=== PATIENT | male | born 1950 | race Two or more races ===

== ENCOUNTER 2024-12-06 16:22 | Inpatient (IN) | payer OTHER, SELFPAY ==
[2024-12-06] VITALS (13 sets, daily range): BP systolic 198–241; BP diastolic 77–108; PULSE 64–98; RESP 16–27; TEMP 36.6–37.2; O2SAT 99–100
--- NOTE | ~2024-12-06 | XR_ITS ---
Left Knee Technique: AP, lateral, and sunrise views were obtained. Clinical History: Injury Findings: No fracture or dislocation is seen. Osseous alignment is anatomic. Joint spaces are preserv ed without degenerative or erosive change. Soft tissues are unremarkable. No joint effusion is seen. Impression: Unremarkable left knee radiographs. Reviewed, dictated and finalized at [facility]. CAPTAIN Impression: Unremarkable left knee radiographs.
--- NOTE | ~2024-12-06 | XR_ITS ---
Clinical Indication: Shortness of breath AP and lateral views of the chest: Comparison: None Findings: Focal hazy airspace disease at the lateral left midlung. Right lung clear. Possible COPD.. Cardiomediastinal silhouette is within normal limits. Bones and soft tissues are unremarkable. Impression: Focal hazy airspace opacity lateral left midlung, suspicious for pneumonia. COPD. Reviewed, dictated and finalized at location . AND INSURANCE CONSULTANT Impression: Focal hazy airspace opacity lateral left midlung, suspicious for pneumonia. COPD.
--- NOTE | ~2024-12-06 | MR_ITS ---
MRI of the brain Clinical History: Left-sided deficit Technique: Axial and sagittal T1-weighted images were acquired. These were followed by axial T2-weigh nancy, diffusion weighted, gradient, and FLAIR images. Following intravenous administration of 14 cc Mu ltiHance gadolinium, T1-weighted fat-sat imaging was performed in the axial and coronal planes. Findings: There is a 1 cm ovoid area restricted diffusion at the posterior aspect of the internal cap jose/peripheral right thalamus, compatible with focal acute infarct (diffusion image 16). There is mo derate background chronic microvascular ischemic change in the periventricular white matter bilateral ly. No intracranial hemorrhage. Ventricles and subarachnoid spaces are essentially unremarkable. Orbits are unremarkable. Paranasal s inuses and mastoid air cells are clear. Distal left vertebral artery flow-void not clearly present. R emaining major intracranial flow voids appear grossly intact. Sagittal midline structures are grossly intact, though there is significant motion artifact on sagitt al images. No abnormal postcontrast enhancement evident, the postcontrast images are degraded by motion artifact . IMPRESSION: 1 cm ovoid acute infarct at the posterior aspect of the right internal capsule/right thalamus, as det edson above. Moderate chronic microvascular ischemic changes. Distal left vertebral artery flow-void not seen. Proximal occlusion is a consideration. Reviewed, dictated and finalized at location M. OP INFRASTRUCTURE ARCHITECT IMPRESSION: 1 cm ovoid acute infarct at the posterior aspect of the right internal capsule/ right thalamus, as detailed above. Moderate chronic microvascular ischemic changes. Distal left vertebral artery flow-void not seen. Proximal occlusion is a consid eration.
--- NOTE | ~2024-12-06 | XR_ITS ---
Left Shoulder Technique: AP and scapular Y views were obtained. Clinical History: Injury Findings: No fracture or dislocation is seen. Osseous alignment is anatomic. The glenohumeral joint i s intact. There is mild AC joint degenerative change. Soft tissues are unremarkable. Impression: No acute abnormalities. Mild AC joint degenerative change. Reviewed, dictated and finalized at [facility]. LATORY COMPLIANCE MANAGER Impression: No acute abnormalities. Mild AC joint degenerative change.
--- NOTE | ~2024-12-06 | CT_ITS ---
CT head without contrast Indication: Altered mental status Technique: Serial scans were obtained through the brain without the administration of contrast. Dose reduction technique was used on this scan by utilizing automated exposure control and iterative recon struction technique. The dose-length product (DLP) was 1362.00 mGy-cm. Findings: There is no evidence of intracranial hemorrhage, mass lesion, or acute infarct. The ventri cles and subarachnoid spaces are dilated, consistent with mild atrophy. Low attenuation regions are seen within the periventricular white matter bilaterally, likely representing changes from chronic mi crovascular ischemic disease. There is no evidence of edema, mass effect or midline shift. The visu alized paranasal sinuses and mastoid air cells are clear. Impression: No intracranial hemorrhage, mass, or acute infarct. Atrophy and chronic white matter changes, as above. Reviewed, dictated and finalized at location . AINS AND DRAPERIES SALESPERSON Impression: No intracranial hemorrhage, mass, or acute infarct. Atrophy and chronic white matter changes, as above.
--- NOTE | ~2024-12-06 | CT_ITS ---
CT ANGIOGRAM NECK AND HEAD History: Neurologic deficit. Technique: Serial spiral axial images through the head and neck were obtained during arterial phase I V injection of 100 cc of Omnipaque 350. 3-D postprocessing and MIP images were then reconstructed on the remote workstation. Dose reduction technique was used on this scan by utilizing automated exposur e control and iterative reconstruction technique. The dose-length product (DLP) was 1000.99 mGy-cm. CTA neck findings: Right vertebral artery is patent throughout its course. There is occlusion at the distal right vertebral artery. Remainder of the proximal and mid portions the right vertebral artery are patent. Bilateral common carotid, internal carotid, and external carotid arteries are patent. Th ere is high-grade stenosis of the proximal left internal carotid artery, presumably related to large soft plaque, 90 % in degree The proximal right internal carotid artery demonstrates 0% stenosis relat gagan to the normal distal artery lumen diameter. The proximal left internal carotid artery demonstrate s 90% stenosis relative to the normal distal artery lumen diameter. CTA head findings: There is probable focal occlusion of the distal left vertebral artery. Distal righ t vertebral artery patent. Basilar artery and posterior cerebral arteries are patent. There is extens gagan atherosclerotic calcification of the cavernous portions of the distal internal carotid arteries, with areas of uviw-ly-[id number] stenosis. Distal internal carotid arteries are patent however. Middle cerebral arteries and anterior shoulder arteries are patent. Possible 3 mm aneurysm at the anterior c ommunicating artery region. No large vessel occlusion. Impression: Occlusion of the distal left vertebral artery without clear delineation of left PICA. High-grade stenosis of the proximal left internal carotid artery, 90 % in degree. Possible 3 mm aneurysm at the anterior to indicating artery region. Reviewed, dictated and finalized at location M. NING COORDINATOR Impression: Occlusion of the distal left vertebral artery without clear delineation of left PICA. High-grade stenosis of the proximal left internal carotid artery, 90 % in degre e. Possible 3 mm aneurysm at the anterior to indicating artery region.
--- OUTSIDE RECORDS SUMMARY | 2024-12-06 20:05 | XMS_ITS | Referral Summary ---
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 Name Role Phone Ted Randall MD Primary Care Provider [phone] Allergies No known active allergies Medications albuterol HFA (PROVENTIL HFA,VENTOLIN HFA,PROAIR HFA) 90 mcg/actuation inhaler INHALE 2 PUFFS BY MOUTH EVERY 6 HOURS NEEDED FOR 10 DAYS 01/07/2024 Active Symbicort 160-4.5 mcg/actuation inhaler INHALE 2 PUFFS BY MOUTH TWICE DAILY DIRECTED 01/08/2024 Active predniSONE (DELTASONE) 10 mg tablet TAKE 6 TABLETS BY MOUTH ONCE DAILY FOR 2 DAYS AND THEN 4 ONCE DAILY FOR 2 DAYS AND THEN 2 ONCE DAILY FOR 3 DAYS AND THEN 1 ONCE DAILY FOR 3 DAYS (TAKE WITH FOOD) 01/07/2024 Active triamcinolone (KENALOG) 0.1 % cream 01/14/2024 Active urea (CARMOL) 40 % creamIndication s:Hyperkeratosi s Apply twice a day to feet. 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
--- OUTSIDE RECORDS SUMMARY | 2024-12-06 20:05 | XMS_ITS | Clinical Summary ---
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 Gender Identity Not on file Sexual Orientation Not on file Obstetrics History Plan of Treatment Health Maintenance Due Date Last Done Comments Colon Cancer Screening-Colonoscopy 1952 Depression Screening 1952 Fall Risk Assessment 1952 Hepatitis C Screening 1952 Pneumococcal vaccine 65+ (1 of 2 - PCV) 1958 DTaP/Tdap/Td Vaccine (1 - Tdap) 1963 Hepatitis B Screening 1970 Zoster Vaccine (1 of 2) 2002 Abdominal Aortic Aneurysm (AAA) Screen 2017 Well Visit 65+ 2017 Influenza Vaccine (#1) 2024 09/07/2021 Insurance [facility] Care Teams Bellhop Service Captain Relationship Specialty Start Date End Date Ted Randall MD [address] [facility] [place] [address] PCP - General Family Medicine 01/09/24
--- NOTE | 2024-12-06 20:43 | ECG_ITS ---
Test Date: 2024-12-06 20:56:05 Measurements Intervals [place] Rate: 65 P: 72 ME: 167 QRS: 48 QRSD: 85 T: 211 QT: 402 QTc: 419 Interpretive Statements SINUS RHYTHM LEFT VENTRICULAR HYPERTROPHY AND ST-T CHANGE [VOLTAGE CRITERIA PLUS ST/T ABNORMALITY] consider ischemia No previous ECG available for comparison Electronically Signed On 12-06-2024 21:22:28 ORDER PROCESSOR by Eric Foley M.D.
--- NOTE | 2024-12-06 20:47 | ED_ITS ---
HPI - Neuro Symptoms/Deficit General Chief Complaint: Neuro Symptoms/Deficit <Blanche Vargas APRN - Last Filed: 12/07/24 03:15> Stated Complaint: left arm and foot not working since yesterday <Blanche Vargas APRN - Last Filed: 12/07/24 03:15> Time Seen by Provider: 12/06/24 19:43 <Blanche Vargas APRN - Last Filed: 12/07/24 03:15> History of Present Illness HPI Narrative: Patient is a 74-year-old [place]ian male who presents to the ER with complaints of left-sided weakness. His last known well was 2:00 p.m. yesterday (over 30 hours ago). Patient's family reports yesterday he fell for no known reason. Patient has family reports that he landed on his left knee and left shoulder. At the time of examination he endorses left arm weakness, and left lower extremity weakness that prevents him from being able to ambulate. Patient's family reports he has a history of high blood pressure but he takes his blood pressure medication every day. They deny any other medical history. Patient reports he did not hit his head or lose consciousness when he fell. He denies any chest pain, headache, abdominal pain, back pain, urinary symptoms, recent fevers, other signs/symptoms of illness. <Blanche Vargas APRN - Last Filed: 12/07/24 03:15> Related Data Home Medications: Home Medications ?Medication ?Instructions ?Recorded ?Confirmed ?Last Taken ?Type albuterol sulfate 90 mcg/actuation 2 puff inhalation Q6H PRN 12/07/24 12/07/24 12/06/24 History aerosol inhaler shortness of breath or wheezing budesonide-formoterol HFA 160 2 puff inhalation BID 12/07/24 12/07/24 12/06/24 History mcg-4.5 mcg/actuation aerosol inhaler (Symbicort) <Blanche Vargas APRN - Last Filed: 12/07/24 03:15> Allergies/Adverse Reactions: Allergies Allergy/AdvReac Type Severity Reaction Status Date / Time No Known Allergies Allergy Verified 12/06/24 17:03 <Blanche Vargas APRN - Last Filed: 12/07/24 03:15> Review of Systems 2 Review of Systems: All systems reviewed & are unremarkable except as noted in HPI and below <Blanche Vargas APRN - Last Filed: 12/07/24 03:15> PMFSH Family History Family History: Family History (Updated 12/07/24 @ 05:41 by Kady Nguyen RN) Sibling Heart valve problem Mother Coarse tremors Father Hypertension <Blanche Vargas APRN - Last Filed: 12/07/24 03:15> Social History Social History: Social History Smoking status: Current every day smoker Tobacco type: cigarettes Alcohol intake: never Substance use: never Do You Feel Safe in your Home?: Yes Lack of Transportation: No Lack of Food: Never True Current Housing: I Have Housing Concerned About Future Housing: No Difficulty Paying Gas/Electric Bills: No Difficulty Paying for Meds: No Currently Unemployed: No Education: Grade School Difficulty w/ Childcare or Family Care: No Spiritual care concerns: No <Blanche Vargas APRN - Last Filed: 12/07/24 03:15> Exam 2 Narrative: GENERAL: Well appearing, well-nourished, non-toxic, in no acute distress. HEAD: Normocephalic, atraumatic. + L facial drop with smile NECK: Supple. No adenopathy, no masses. RESPIRATORY: Airway patent, respirations nonlabored. Mildly coarse upper breath sounds. No cough during the time of examination. CARDIOVASCULAR: Regular rate and rhythm without murmurs, rubs, or gallops. Peripheral pulses 2+ and equal bilaterally. ABDOMINAL: Soft, nontender, nondistended, no hepatosplenomegaly. Normoactive BS. MUSCULOSKELETAL: Moves all extremities, although left arm and left leg are mildly weaker than right arm and right leg. Decreased strength in L rn production, ROM intact without gross deformities. SKIN: Warm, dry, normal color. No rashes. NEURO: A&O X3. Speech clear. No ataxic movements. PSYCHIATRIC: Appropriate mood and affect. Normal interaction. <Blanche Vargas APRN - Last Filed: 12/07/24 03:15> Course Course Emergency Course: Patient care was signed out to me by previous provider pending consultation with Neurosurgery and vascular surgery at [facility] regarding patient's head CT and neck/head CTA findings. I discussed the case with Neurosurgery Dr. Hodge at [facility]. No acute interventions are needed and recommendations are to follow neurology's recommendations and plan of care regarding to antiplatelet therapy and stroke workup. No need for transfer. Spoke to Dr. 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 They reviewed the images and clinical exam given that his symptoms are not consistent with his imaging these are likely incidental findings and not intervenable or needing any kind of emergent or urgent attention or transfer. Recommendations for outpatient follow-up with vascular surgery in our clinic for elective outpatient endarterectomy after inpatient stroke workup. I relayed these strategic sourcing consultant recommendations to our hospitalist currently being covered by the midlevel provider Dania. Patient was accepted as admission at this time to a [facility] bed for continued stroke workup here at our facility with neurology on consult. Patient outside window for interventions like TNK or thrombectomy. Patient is noted to be hypertensive but will pursue permissive hypertension given his acute clinical diagnosis of ischemic stroke. Family was made aware of the plan and patient successfully admitted this time. <Demetrius Mora MD - Last Filed: 12/07/24 08:50> Vital Signs Vital signs: Vital Signs Temperature 37.2 C 12/06/24 16:59 Pulse Rate 68 12/06/24 16:59 Respiratory Rate 16 12/06/24 16:59 Blood Pressure 207/77 H 12/06/24 16:59 Pulse Oximetry 100 12/06/24 16:59 Oxygen Delivery Room Air 12/06/24 16:59 Temperature 36.7 C 12/07/24 06:00 Pulse Rate 104 H 12/07/24 08:00 Respiratory Rate 14 12/07/24 06:00 Blood Pressure 185/73 H 12/07/24 06:00 Pulse Oximetry 100 12/07/24 06:00 Oxygen Delivery Room Air 12/07/24 07:59 <Blanche Vargas APRN - Last Filed: 12/07/24 03:15> Vital Signs Temperature 37.2 C 12/06/24 16:59 Pulse Rate 68 12/06/24 16:59 Respiratory Rate 16 12/06/24 16:59 Blood Pressure 207/77 H 12/06/24 16:59 Pulse Oximetry 100 12/06/24 16:59 Oxygen Delivery Room Air 12/06/24 16:59 Temperature 36.7 C 12/07/24 06:00 Pulse Rate 104 H 12/07/24 08:00 Respiratory Rate 14 12/07/24 06:00 Blood Pressure 185/73 H 12/07/24 06:00 Pulse Oximetry 100 12/07/24 06:00 Oxygen Delivery Room Air 12/07/24 07:59 <Demetrius Mora MD - Last Filed: 12/07/24 08:50> MDM - Neuro Symptoms/Deficit MDM Narrative Medical decision making narrative: Patient is a 74-year-old Fijian male who presents to the ER with complaints of left-sided weakness. His last known well was 2:00 p.m. yesterday (over 30 hours ago). Patient's family reports yesterday he fell for no known reason. Patient has family reports that he landed on his left knee and left shoulder. He continues to endorse pain at the time of examination. At the time of examination he endorses left arm weakness, and left lower extremity weakness that prevents him from being able to ambulate. Patient's family reports he has a history of high blood pressure, but he takes his blood pressure medication every day. They deny any other medical history, except that pt has smoked cigarettes for the past 59 years. Patient reports he did not hit his head or lose consciousness when he fell. He denies any chest pain, headache, abdominal pain, back pain, urinary symptoms, recent fevers, other signs/symptoms of illness. Labs Ordered: CBC, CMP, UA, TSH, COVID/flu/RSV, troponin, INR, PTT, D-dimer Imaging Ordered: CT head, CTA brain and carotids, left shoulder x-ray, left knee x-ray Medications Ordered: Hydralazine 20 mg IV x1 Results: Patient's head CT indicated no acute intracranial hemorrhage. No midline shift or mass effect. Cardenas-white matter differentiation maintained throughout. Age related cerebral volume loss. Periventricular and subcortical white matter hypoattenuation, consistent with chronic microangiopathy. Patient's CBC indicated a hemoglobin of 10.2, hematocrit of 35.5%, platelet count of 383. His CMP indicated a sodium of 135 and glucose of 107, but all other results were within normal limits. Patient's urinalysis results were unremarkable. His respiratory swab was negative her RSV/flu/COVID. NIH Stroke Scale/Score (NIHSS) from [email or web address] on 12/07/2024 All calculations should be rechecked by clinician prior to use RESULT SUMMARY: 3 points NIH Stroke Scale INPUTS: 1A: Level of consciousness ?> 0 = Alert; keenly responsive 1B: Ask month and age ?> 0 = Both questions right 1C: 'Blink eyes' & 'squeeze hands' ?> 0 = Performs both tasks 2: Horizontal extraocular movements ?> 0 = Normal 3: Visual rushing ?> 0 = No visual loss 4: Facial palsy ?> 1 = Minor paralysis (flat nasolabial fold, smile asymmetry) 5A: Left arm motor drift ?> 0 = No drift for 10 seconds 5B: Right arm motor drift ?> 0 = No drift for 10 seconds 6A: Left leg motor drift ?> 1 = Drift, but doesn't hit bed 6B: Right leg motor drift ?> 0 = No drift for 5 seconds 7: Limb Ataxia ?> 1 = Ataxia in 1 Limb 8: Sensation ?> 0 = Normal; no sensory loss 9: Language/aphasia ?> 0 = Normal; no aphasia 10: Dysarthria ?> 0 = Normal 11: Extinction/inattention ?> 0 = No abnormality Diagnosis: Ischemic stroke CTA head/neck ordered for further work-up. Consults: 0230- vascular surgery through [facility] Patient Education/Shared MDM: Patient's initial complaint in triage was ?fall, but upon getting back to a room in the ER the nurse reported pt actually had neurological deficits. Results of CT scan shared with family. They are very concerned regarding patient's diagnosis, but throughout the evening patient has repeatedly reported he wants to leave the hospital AMA. 0230-Care signed out to Dr. Mora. <Blanche Vargas, RIGO - Last Filed: 12/07/24 03:15> Patient is a 74-year-old Fijian male who presents to the ER with complaints of left-sided weakness. His last known well was 2:00 p.m. yesterday (over 30 hours ago). Patient's family reports yesterday he fell for no known reason. Patient has family reports that he landed on his left knee and left shoulder. He continues to endorse pain at the time of examination. At the time of examination he endorses left arm weakness, and left lower extremity weakness that prevents him from being able to ambulate. Patient's family reports he has a history of high blood pressure, but he takes his blood pressure medication every day. They deny any other medical history, except that pt has smoked cigarettes for the past 59 years. Patient reports he did not hit his head or lose consciousness when he fell. He denies any chest pain, headache, abdominal pain, back pain, urinary symptoms, recent fevers, other signs/symptoms of illness. Labs Ordered: CBC, CMP, UA, TSH, COVID/flu/RSV, troponin, INR, PTT, D-dimer Imaging Ordered: CT head, CTA brain and carotids, left shoulder x-ray, left knee x-ray Medications Ordered: Hydralazine 20 mg IV x1 Results: Patient's head CT indicated no acute intracranial hemorrhage. No midline shift or mass effect. Cardenas-white matter differentiation maintained throughout. Age related cerebral volume loss. Periventricular and subcortical white matter hypoattenuation, consistent with chronic microangiopathy. Patient's CBC indicated a hemoglobin of 10.2, hematocrit of 35.5%, platelet count of 383. His CMP indicated a sodium of 135 and glucose of 107, but all other results were within normal limits. Patient's urinalysis results were unremarkable. His respiratory swab was negative her RSV/flu/COVID. NIH Stroke Scale/Score (NIHSS) from [email or web address] on 12/07/2024 All calculations should be rechecked by clinician prior to use RESULT SUMMARY: 3 points NIH Stroke Scale INPUTS: 1A: Level of consciousness ?> 0 = Alert; keenly responsive 1B: Ask month and age ?> 0 = Both questions right 1C: 'Blink eyes' & 'squeeze hands' ?> 0 = Performs both tasks 2: Horizontal extraocular movements ?> 0 = Normal 3: Visual rushing ?> 0 = No visual loss 4: Facial palsy ?> 1 = Minor paralysis (flat nasolabial fold, smile asymmetry) 5A: Left arm motor drift ?> 0 = No drift for 10 seconds 5B: Right arm motor drift ?> 0 = No drift for 10 seconds 6A: Left leg motor drift ?> 1 = Drift, but doesn't hit bed 6B: Right leg motor drift ?> 0 = No drift for 5 seconds 7: Limb Ataxia ?> 1 = Ataxia in 1 Limb 8: Sensation ?> 0 = Normal; no sensory loss 9: Language/aphasia ?> 0 = Normal; no aphasia 10: Dysarthria ?> 0 = Normal 11: Extinction/inattention ?> 0 = No abnormality Diagnosis: Ischemic stroke CTA head/neck ordered for further work-up. Consults: 0230- vascular surgery and neurosurgery through [facility] Patient Education/Shared MDM: Patient's initial complaint in triage was ?fall, but upon getting back to a room in the ER the nurse reported pt actually had neurological deficits. Results of CT scan shared with family. They are very concerned regarding patient's diagnosis, but throughout the evening patient has repeatedly reported he wants to leave the hospital AMA. 0230-Care signed out to Dr. Mora. <Demetrius Mora MD - Last Filed: 12/07/24 08:50> Differential Diagnosis Differential diagnosis: Likely subarachnoid hemorrhage, cerebrovascular accident and transient cerebral ischemia <Blanche Vargas APRN - Last Filed: 12/07/24 03:15> Lab Data Attestation: I reviewed the patient's lab results. <Blnache Vargas APRN - Last Filed: 12/07/24 03:15> Result diagrams: 12/06/24 21:02 12/06/24 21:01 <Blanche Vargas APRN - Last Filed: 12/07/24 03:15> Labs: Lab Results 12/06/24 12/06/24 12/06/24 Range/Units 20:51 21:01 21:02 WBC 5.8 (4.5-10.0) K/mm3 RBC 6.12 (4.6-6.20) M/mm3 Hgb 10.2 L (14.0-18.0) g/dL Hct 35.5 L (42.0-52.0) % MCV 58.0 L (80-100) fl MCH 16.7 L (26-34) pg MCHC 28.7 L (32-36) g/dl RDW 18.6 H (11.5-14.5) % Plt Count 383 H (150-375) k/mm3 MPV 9.0 (7.4-10.4) fl Immature Gran % (Auto) 0.5 (0-0.5) % Neut % (Auto) 60.9 (45.5-73.1) % Lymph % (Auto) 20.9 (18.3-44.2) % Grayson % (Auto) 12.0 H (2.6-8.5) % Eos % (Auto) 5.2 H (0-4.4) % Baso % (Auto) 0.5 (0.2-1.2) % Lymph # (Auto) 1.20 (0.9-3.2) K/mm3 Grayson # (Auto) 0.7 H (0.1-0.6) K/mm3 Eos # (Auto) 0.3 (0-0.3) K/mm3 Baso # (Auto) 0.0 (0.0-0.1) K/mm3 Abs Immat Gran (auto) 0.03 (0.00-0.031) K/mm3 Absolute Neuts (auto) 3.5 (1.3-6.7) K/mm3 Absolute Nucleated RBC 0.000 (0.0-0.012) K/mm3 Nucleated RBC % 0.0 (0.0-0.2) % Platelet Estimate Slightly increased (Adequate) Anisocytosis 1+ Microcytosis 2+ (NORMAL) Ovalocytes 1+ Schistocytes None seen PT 13.6 (11.1-14.7) Seconds INR 1.0 APTT 30.9 (22.3-36.8) Seconds D-Dimer < 0.27 (<0.48) ug/mL Sodium 135 L (137-145) mmol/L Potassium 4.4 (3.4-5.0) mmol/L Chloride 102 (98-107) mmol/L Carbon Dioxide 24 (22-30) mmol/L Anion Gap 9 (4-12) mmol/L BUN 16 (9-20) mg/dL Creatinine 1.01 (0.7-1.3) mg/dL Estim Creat Clear Calc 51 ml/min Estimated GFR > 60 (59 - ) Glucose 93 (65-110) mg/dL POC Capillary Glucose 107 H (65-105) mg/dl Calcium 9.1 (8.4-10.2) mg/dL Total Bilirubin 0.5 (0.2-1.3) mg/dL AST 27 (17-59) U/L ALT 13 (6-50) U/L Alkaline Phosphatase 85 (38-126) U/L Troponin I 0.014 (0.000-0.034) ng/mL Total Protein 7.0 (6.3-8.2) g/dL Albumin 4.1 (3.5-5.1) g/dL TSH 3.420 (0.465-4.680) uIU/mL Urine Color (Yellow) Urine Appearance (Clear) Urine pH (5.0-9.0) Ur Specific [place] (1.001-1.035) Urine Protein (Negative) mg/dL Urine Glucose (UA) (Negative) mg/dL Urine Ketones (Negative) mg/dL Ur Blood (Man) (Negative) Urine Nitrate (Negative) Urine Bilirubin (Negative) Urine Urobilinogen (<2.0) mg/dL Leukocyte Esterase Rfl (Negative) MARIXA/UL Influenza A (RT-PCR) Negative (Negative) Influenza B (RT-PCR) Negative (Negative) RSV (RT-PCR) Negative (Negative) SARS-CoV-2 RNA (RT-PCR) Negative (Negative) 12/06/24 Range/Units 21:47 WBC (4.5-10.0) K/mm3 RBC (4.6-6.20) M/mm3 Hgb (14.0-18.0) g/dL Hct (42.0-52.0) % MCV (80-100) fl MCH (26-34) pg MCHC (32-36) g/dl RDW (11.5-14.5) % Plt Count (150-375) k/mm3 MPV (7.4-10.4) fl Immature Gran % (Auto) (0-0.5) % Neut % (Auto) (45.5-73.1) % Lymph % (Auto) (18.3-44.2) % Grayson % (Auto) (2.6-8.5) % Eos % (Auto) (0-4.4) % Baso % (Auto) (0.2-1.2) % Lymph # (Auto) (0.9-3.2) K/mm3 Grayson # (Auto) (0.1-0.6) K/mm3 Eos # (Auto) (0-0.3) K/mm3 Baso # (Auto) (0.0-0.1) K/mm3 Abs Immat Gran (auto) (0.00-0.031) K/mm3 Absolute Neuts (auto) (1.3-6.7) K/mm3 Absolute Nucleated RBC (0.0-0.012) K/mm3 Nucleated RBC % (0.0-0.2) % Platelet Estimate (Adequate) Anisocytosis Microcytosis (NORMAL) Ovalocytes Schistocytes PT (11.1-14.7) Seconds INR APTT (22.3-36.8) Seconds D-Dimer (<0.48) ug/mL Sodium (137-145) mmol/L Potassium (3.4-5.0) mmol/L Chloride (98-107) mmol/L Carbon Dioxide (22-30) mmol/L Anion Gap (4-12) mmol/L BUN (9-20) mg/dL Creatinine (0.7-1.3) mg/dL Estim Creat Clear Calc ml/min Estimated GFR (59 - ) Glucose (65-110) mg/dL POC Capillary Glucose (65-105) mg/dl Calcium (8.4-10.2) mg/dL Total Bilirubin (0.2-1.3) mg/dL AST (17-59) U/L ALT (6-50) U/L Alkaline Phosphatase (38-126) U/L Troponin I (0.000-0.034) ng/mL Total Protein (6.3-8.2) g/dL Albumin (3.5-5.1) g/dL TSH (0.465-4.680) uIU/mL Urine Color Yellow (Yellow) Urine Appearance Clear (Clear) Urine pH 6.0 (5.0-9.0) Ur Specific [place] 1.010 (1.001-1.035) Urine Protein Negative (Negative) mg/dL Urine Glucose (UA) Negative (Negative) mg/dL Urine Ketones Negative (Negative) mg/dL Ur Blood (Man) Negative (Negative) Urine Nitrate Negative (Negative) Urine Bilirubin Negative (Negative) Urine Urobilinogen 0.2 (<2.0) mg/dL Leukocyte Esterase Rfl Negative (Negative) MARIXA/UL Influenza A (RT-PCR) (Negative) Influenza B (RT-PCR) (Negative) RSV (RT-PCR) (Negative) SARS-CoV-2 RNA (RT-PCR) (Negative) <Blanche Mata Alicia, DOBBY LOOM WEAVER - Last Filed: 12/07/24 03:15> Lab Results 12/06/24 12/06/24 12/06/24 Range/Units 20:51 21:01 21:02 WBC 5.8 (4.5-10.0) K/mm3 RBC 6.12 (4.6-6.20) M/mm3 Hgb 10.2 L (14.0-18.0) g/dL Hct 35.5 L (42.0-52.0) % MCV 58.0 L (80-100) fl MCH 16.7 L (26-34) pg MCHC 28.7 L (32-36) g/dl RDW 18.6 H (11.5-14.5) % Plt Count 383 H (150-375) k/mm3 MPV 9.0 (7.4-10.4) fl Immature Gran % (Auto) 0.5 (0-0.5) % Neut % (Auto) 60.9 (45.5-73.1) % Lymph % (Auto) 20.9 (18.3-44.2) % Grayson % (Auto) 12.0 H (2.6-8.5) % Eos % (Auto) 5.2 H (0-4.4) % Baso % (Auto) 0.5 (0.2-1.2) % Lymph # (Auto) 1.20 (0.9-3.2) K/mm3 Grayson # (Auto) 0.7 H (0.1-0.6) K/mm3 Eos # (Auto) 0.3 (0-0.3) K/mm3 Baso # (Auto) 0.0 (0.0-0.1) K/mm3 Abs Immat Gran (auto) 0.03 (0.00-0.031) K/mm3 Absolute Neuts (auto) 3.5 (1.3-6.7) K/mm3 Absolute Nucleated RBC 0.000 (0.0-0.012) K/mm3 Nucleated RBC % 0.0 (0.0-0.2) % Platelet Estimate Slightly increased (Adequate) Anisocytosis 1+ Microcytosis 2+ (NORMAL) Ovalocytes 1+ Schistocytes None seen PT 13.6 (11.1-14.7) Seconds INR 1.0 APTT 30.9 (22.3-36.8) Seconds D-Dimer < 0.27 (<0.48) ug/mL Sodium 135 L (137-145) mmol/L Potassium 4.4 (3.4-5.0) mmol/L Chloride 102 (98-107) mmol/L Carbon Dioxide 24 (22-30) mmol/L Anion Gap 9 (4-12) mmol/L BUN 16 (9-20) mg/dL Creatinine 1.01 (0.7-1.3) mg/dL Estim Creat Clear Calc 51 ml/min Estimated GFR > 60 (59 - ) Glucose 93 (65-110) mg/dL POC Capillary Glucose 107 H (65-105) mg/dl Calcium 9.1 (8.4-10.2) mg/dL Total Bilirubin 0.5 (0.2-1.3) mg/dL AST 27 (17-59) U/L ALT 13 (6-50) U/L Alkaline Phosphatase 85 (38-126) U/L Troponin I 0.014 (0.000-0.034) ng/mL Total Protein 7.0 (6.3-8.2) g/dL Albumin 4.1 (3.5-5.1) g/dL TSH 3.420 (0.465-4.680) uIU/mL Urine Color (Yellow) Urine Appearance (Clear) Urine pH (5.0-9.0) Ur Specific [place] (1.001-1.035) Urine Protein (Negative) mg/dL Urine Glucose (UA) (Negative) mg/dL Urine Ketones (Negative) mg/dL Ur Blood (Man) (Negative) Urine Nitrate (Negative) Urine Bilirubin (Negative) Urine Urobilinogen (<2.0) mg/dL Leukocyte Esterase Rfl (Negative) MARIXA/UL Influenza A (RT-PCR) Negative (Negative) Influenza B (RT-PCR) Negative (Negative) RSV (RT-PCR) Negative (Negative) SARS-CoV-2 RNA (RT-PCR) Negative (Negative) 12/06/24 Range/Units 21:47 WBC (4.5-10.0) K/mm3 RBC (4.6-6.20) M/mm3 Hgb (14.0-18.0) g/dL Hct (42.0-52.0) % MCV (80-100) fl MCH (26-34) pg MCHC (32-36) g/dl RDW (11.5-14.5) % Plt Count (150-375) k/mm3 MPV (7.4-10.4) fl Immature Gran % (Auto) (0-0.5) % Neut % (Auto) (45.5-73.1) % Lymph % (Auto) (18.3-44.2) % Grayson % (Auto) (2.6-8.5) % Eos % (Auto) (0-4.4) % Baso % (Auto) (0.2-1.2) % Lymph # (Auto) (0.9-3.2) K/mm3 Grayson # (Auto) (0.1-0.6) K/mm3 Eos # (Auto) (0-0.3) K/mm3 Baso # (Auto) (0.0-0.1) K/mm3 Abs Immat Gran (auto) (0.00-0.031) K/mm3 Absolute Neuts (auto) (1.3-6.7) K/mm3 Absolute Nucleated RBC (0.0-0.012) K/mm3 Nucleated RBC % (0.0-0.2) % Platelet Estimate (Adequate) Anisocytosis Microcytosis (NORMAL) Ovalocytes Schistocytes PT (11.1-14.7) Seconds INR APTT (22.3-36.8) Seconds D-Dimer (<0.48) ug/mL Sodium (137-145) mmol/L Potassium (3.4-5.0) mmol/L Chloride (98-107) mmol/L Carbon Dioxide (22-30) mmol/L Anion Gap (4-12) mmol/L BUN (9-20) mg/dL Creatinine (0.7-1.3) mg/dL Estim Creat Clear Calc ml/min Estimated GFR (59 - ) Glucose (65-110) mg/dL POC Capillary Glucose (65-105) mg/dl Calcium (8.4-10.2) mg/dL Total Bilirubin (0.2-1.3) mg/dL AST (17-59) U/L ALT (6-50) U/L Alkaline Phosphatase (38-126) U/L Troponin I (0.000-0.034) ng/mL Total Protein (6.3-8.2) g/dL Albumin (3.5-5.1) g/dL TSH (0.465-4.680) uIU/mL Urine Color Yellow (Yellow) Urine Appearance Clear (Clear) Urine pH 6.0 (5.0-9.0) Ur Specific [place] 1.010 (1.001-1.035) Urine Protein Negative (Negative) mg/dL Urine Glucose (UA) Negative (Negative) mg/dL Urine Ketones Negative (Negative) mg/dL Ur Blood (Man) Negative (Negative) Urine Nitrate Negative (Negative) Urine Bilirubin Negative (Negative) Urine Urobilinogen 0.2 (<2.0) mg/dL Leukocyte Esterase Rfl Negative (Negative) MARIXA/UL Influenza A (RT-PCR) (Negative) Influenza B (RT-PCR) (Negative) RSV (RT-PCR) (Negative) SARS-CoV-2 RNA (RT-PCR) (Negative) <Demetrius Mora MD - Last Filed: 12/07/24 08:50> Critical Care Time Critical Care Time Critical Care Time: Yes <Demetrius Mora MD - Last Filed: 12/07/24 08:50> Total Critical Care Time: 35 <Demetrius Mora MD - Last Filed: 12/07/24 08:50> Discharge Plan Discharge Clinical Impression: Cerebrovascular accident, Carotid stenosis, left, Obstruction of left vertebral artery <Blanche Vargas APRN - Last Filed: 12/07/24 03:15> Patient Disposition: Still a Patient <Blanche Vargas APRN - Last Filed: 12/07/24 03:15> Condition: Stable <Blanche Vargas APRN - Last Filed: 12/07/24 03:15>
[2024-12-06] MEDS: hydrALAZINE HCL 20 MG/ML VIAL IV PUSH (21:02)
[2024-12-06 21:05] LABS: Glucose Point of Care 107 mg/dl (65-105)
[2024-12-06 21:11] LABS: Basophils Percent Auto 0.5 % (0.2-1.2); Eosinophils Absolute Auto 0.3 K/mm3 (0-0.3); Eosinophils Percent Auto 5.2 % (0-4.4); Hematocrit 35.5 % (42.0-52.0); Hemoglobin 10.2 g/dL (14.0-18.0); Immature Granulocyte Absolute 0.03 K/mm3 (0.00-0.031); Immature Granulocyte Percent A 0.5 % (0-0.5); Lymphocytes Percent Auto 20.9 % (18.3-44.2); Mean Corpuscular HGB Conc 28.7 g/dl (32-36); Mean Corpuscular Hemoglobin 16.7 pg (26-34); Monocytes Absolute Auto 0.7 K/mm3 (0.1-0.6); Neutrophils Absolute Auto 3.5 K/mm3 (1.3-6.7); Neutrophils Percent Auto 60.9 % (45.5-73.1); Platelet Count Result 383 k/mm3 (150-375); Red Blood Count 6.12 M/mm3 (4.6-6.20); Red Cell Distribution Width 18.6 % (11.5-14.5); White Blood Count 5.8 K/mm3 (4.5-10.0)
[2024-12-06 21:21] LABS: Alanine Aminotransferase 13 U/L (6-50); Albumin Level 4.1 g/dL (3.5-5.1); Alkaline Phosphatase 85 U/L (38-126); Anion Gap 9 mmol/L (4-12); Aspartate Amino Transferase 27 U/L (17-59); Bilirubin,Total 0.5 mg/dL (0.2-1.3); Blood Urea Nitrogen 16 mg/dL (9-20); Calcium 9.1 mg/dL (8.4-10.2); Carbon Dioxide 24 mmol/L (22-30); Chloride 102 mmol/L (98-107); Estimated CRCL calculation 51 ml/min; Estimated Glomerular Filt Rate > 60; Glucose 93 mg/dL (65-110); Potassium 4.4 mmol/L (3.4-5.0); Sodium 135 mmol/L (137-145)
[2024-12-06 21:25] LABS: Prothrombin Time 13.6 Seconds (11.1-14.7)
[2024-12-06 21:27] LABS: Partial Thromboplastin Time 30.9 Seconds (22.3-36.8)
[2024-12-06 21:33] LABS: Troponin I 0.014 ng/mL (0.000-0.034)
[2024-12-06 21:41] LABS: D Dimer < 0.27 ug/mL (<0.48)
[2024-12-06 21:43] LABS: Platelet Estimate Slightly Increased (Adequate)
[2024-12-06 21:44] LABS: Anisocytosis 1+; Microcytosis 2+ (NORMAL); Ovalocytes 1+; Schistocytes None Seen
--- NOTE | 2024-12-06 21:49 | PC.NURSE ---
Patient able to provide urine sample. Patient was assisted into w/c and wheeled to the bathroom to provide sample. Patient needed x1 assist.
[2024-12-06 21:51] LABS: Influenza A QL RT-PCR Negative (Negative); Influenza B QL RT-PCR Negative (Negative); RSV RNA, RT-PCR Negative (Negative); SARS-CoV-2 RNA PCR Negative (Negative)
--- NOTE | 2024-12-06 21:53 | PC.NURSE ---
Patient taken to CT via stretcher at this time.
[2024-12-06 21:54] LABS: Add Urine Microscopic? NO; Appearance Urine Clear (Clear); Bilirubin Urine Negative (Negative); Blood Urine Negative (Negative); Color Urine Yellow (Yellow); Glucose Urine UA Negative (Negative); Ketones Urine Negative (Negative); Leukocyte Esterase Ur Negative LEU/UL (Negative); Nitrate Urine Negative (Negative); Protein Urine Negative (Negative); Urobilinogen Urine 0.2 mg/dL (<2.0)
[2024-12-07] VITALS (8 sets, daily range): BP systolic 185–186; BP diastolic 73–80; PULSE 90–104; RESP 14–18; TEMP 36.7–36.9; O2SAT 99–100; BMI 19.7
--- NOTE | 2024-12-07 01:28 | PC.NURSE ---
Patient refusing to have monitoring leads, pulse ox and BP cuff on. Patient educated on importance of monitoring equipment and patient verbalizes understanding and still refuses to wear or allow staff to place monitoring equipment. BSC brought to room for patient to use, patient refusing urinal. Family at bedside. ERP notified of patient refusing to wear monitoring equipment.
--- NOTE | 2024-12-07 05:00 | ADMGEN ---
This patient, Ivis Perla, was admitted to [facility] Surg Room 330-02. Patient/family oriented to hospital policies and general routines including ID bracelet, bed and alarms, visiting hours, pain management, procedures, bathroom and other care routines, personal items, smoking policy, room service/diet, and visiting hours. Information on how to activate the Rapid Response Team has been discussed. Patient/Family are encouraged to report perceived risks to care and to ask questions if they do not understand what they are told or what they should do.
--- NOTE | 2024-12-07 09:37 | P.HP_ITS ---
H&P: HPI History of Present Illness Date/Time: 12/07/24 09:37 Chief Complaint: Left side weakness Narrative: Was obtained from the patient, the chart, the patient's [id number] at bedside, and the patient's daughter by phone. The patient lives with his daughter. 74-year-old gentleman with history of hypertension and cigarette smoking presented to the emergency department December 06 at around 7:00 p.m. with complaints of left-sided weakness and difficulty walking. He was last known normal at 2:00 p.m. on December 05. He had a fall at home foreign no clear reason. He was having difficulty walking in family brought him to the emergency department. Currently he denies pain. No chest pain or shortness of breath. No bowel or bladder issues. No abnormal bleeding noted. His only medical history is COPD and hypertension. He takes his blood pressure medicines daily at home. His primary care physician is Dr. Randall. Review of Systems Review of Systems: All systems reviewed & are unremarkable except as noted in HPI and below PMFSH Past Medical History Medical History (Updated 12/07/24 @ 10:58 by Wayne Porter MD) Cigarette smoker Essential hypertension COPD (chronic obstructive pulmonary disease) Family History Family History Sibling Heart valve problem Mother Coarse tremors Father Hypertension Social History Social History (Updated 12/07/24 @ 10:46 by Wayne Porter MD) Social History: Lives with daughter's family. Full code. Smokes 3-4 cigarettes per day. No alcohol or recreational drug use. Smoking status: Current every day smoker Tobacco type: cigarettes Alcohol intake: never Substance use: never Do You Feel Safe in your Home?: Yes Lack of Transportation: No Lack of Food: Never True Current Housing: I Have Housing Concerned About Future Housing: No Difficulty Paying Gas/Electric Bills: No Difficulty Paying for Meds: No Currently Unemployed: No Education: Grade School Difficulty w/ Childcare or Family Care: No Living arrangements: with family Occupation/Education: retired Spiritual care concerns: No Meds Home Medications and Allergies Home Medications ?Medication ?Instructions ?Recorded ?Confirmed ?Type albuterol sulfate 90 mcg/actuation 2 puff inhalation Q6H PRN 12/07/24 12/07/24 History aerosol inhaler shortness of breath or wheezing budesonide-formoterol HFA 160 2 puff inhalation BID 12/07/24 12/07/24 History mcg-4.5 mcg/actuation aerosol inhaler (Symbicort) Allergies Allergy/AdvReac Type Severity Reaction Status Date / Time No Known Allergies Allergy Verified 12/06/24 17:03 Vital Signs Vital Signs - 24 hr 12/06/24 16:59 12/06/24 19:31 12/06/24 19:32 Temperature 99.0 F Pulse Rate 68 69 64 Respiratory Rate 16 21 H 17 Blood Pressure 207/77 H 241/94 H Pulse Oximetry 100 100 100 Oxygen Delivery Room Air 12/06/24 19:41 12/06/24 19:45 12/06/24 19:53 Temperature 97.8 F Pulse Rate 65 86 71 Respiratory Rate 20 19 20 Blood Pressure 235/93 H 235/93 H Pulse Oximetry 100 100 100 Oxygen Delivery Room Air 12/06/24 20:16 12/06/24 20:54 12/06/24 21:04 Temperature Pulse Rate 66 79 85 Respiratory Rate 17 27 H 19 Blood Pressure Pulse Oximetry 100 Oxygen Delivery 12/06/24 21:05 12/06/24 21:50 12/06/24 23:44 Temperature Pulse Rate 86 98 97 Respiratory Rate 22 H 18 Blood Pressure 198/108 H 199/82 H Pulse Oximetry 100 99 Oxygen Delivery 12/06/24 23:45 12/07/24 03:00 12/07/24 05:42 Temperature Pulse Rate 93 Respiratory Rate 17 Blood Pressure Pulse Oximetry 99 Oxygen Delivery 12/07/24 05:48 12/07/24 06:00 12/07/24 07:59 Temperature 98.1 F Pulse Rate 93 95 Respiratory Rate 17 14 Blood Pressure 185/73 H Pulse Oximetry 99 100 Oxygen Delivery Room Air Room Air 12/07/24 08:00 Temperature Pulse Rate 104 H Respiratory Rate Blood Pressure Pulse Oximetry Oxygen Delivery Exam Narrative: HEENT: EOMI, PERRL, sclerae nonicteric, pharyngeal mucosa pink and intact NECK: No JVD, adenopathy, or thyromegaly CHEST: Normal effort. Sounds with scattered rhonchi. No goals. Slight expiratory wheeze bilaterally anteriorly and posteriorly. HEART: NL S1/S2, regular, no murmur ABDOMEN: BS+, soft, nontender, no mass, no bruits EXTREMITIES: No cyanosis, edema, or clubbing. PULSES: Pedal pulses 1+ bilaterally. Radial pulses 2+. NEUROLOGIC: CN with mild left facial droop, mild slurring of speech. 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 DTRs 2+ at the right biceps triceps and knee trace at right ankle. Slightly increased at left biceps 2+ left triceps 2+ left knee trace left ankle. Babinski's negative bilaterally. MUSCULOSKELETAL: No gross deformity to visual inspection. PSYCH: Alert. Oriented to person, place, and time. H&P: Results Labs Labs: Short CBC 12/06/24 Range/Units 21:02 WBC 5.8 (4.5-10.0) K/mm3 Hgb 10.2 L (14.0-18.0) g/dL Hct 35.5 L (42.0-52.0) % Plt Count 383 H (150-375) k/mm3 BMP 12/06/24 21:01 Sodium 135 L Potassium 4.4 Chloride 102 Carbon Dioxide 24 BUN 16 Creatinine 1.01 Glucose 93 Calcium 9.1 Cardiac Enzymes 12/06/24 Range/Units 21:01 Troponin I 0.014 (0.000-0.034) ng/mL Liver Function 12/06/24 Range/Units 21:01 Total Bilirubin 0.5 (0.2-1.3) mg/dL AST 27 (17-59) U/L ALT 13 (6-50) U/L Alkaline Phosphatase 85 (38-126) U/L Albumin 4.1 (3.5-5.1) g/dL Urine 12/06/24 Range/Units 21:47 Urine Color Yellow (Yellow) Urine Appearance Clear (Clear) Urine pH 6.0 (5.0-9.0) Ur Specific Schulter 1.010 (1.001-1.035) Urine Protein Negative (Negative) mg/dL Urine Glucose (UA) Negative (Negative) mg/dL Assessment and Plan Assessment and plan (1) Cerebrovascular accident: Code(s): I63.9 - Cerebral infarction, unspecified Status: Acute Assessment and Plan: * Likely occurred sometime between 2:00 p.m. on December 05 late afternoon December 06. * Presented with left hemiparesis and slurred speech. * CT head negative stroke, bleed, or mass. * CTA head and neck with 90% occlusion of left internal carotid artery and occlusion of left vertebral artery. * However his left hemiparesis suggests right middle cerebral artery territory stroke, not related to the aforementioned vascular findings. * 12/07/2024 discussed with daughter and [id number] and patient. * Initiate ASA, clopidogrel, statin. * Allow permissive hypertension for first 48 hours. * Monitor on telemetry. * Echo doppler. * MRI brain pending 12/07/2024. (2) Essential hypertension: Code(s): I10 - Essential (primary) hypertension Status: Acute Assessment and Plan: * Received 1 dose of hydralazine in the emergency department her 89. * 12/07/2024 blood pressure 185/73. * 12/07/2024 daughter to bring in medications so that his home regimen can be restarted. * His EKG suggests that blood pressure has not been optimally controlled due to left ventricular hypertrophy and repolarization abnormality. (3) Carotid stenosis, left: Code(s): I65.22 - Occlusion and stenosis of left carotid artery Status: Acute (4) Obstruction of left vertebral artery: Code(s): I65.02 - Occlusion and stenosis of left vertebral artery Status: Acute (5) COPD (chronic obstructive pulmonary disease): Code(s): J44.9 - Chronic obstructive pulmonary disease, unspecified Status: Acute (6) Microcytic hypochromic anemia: Code(s): D50.9 - Iron deficiency anemia, unspecified Status: Acute Assessment and Plan: * Severity of microcytosis suggests possible underlying alpha-thalassemia trait. * Elevated platelet count and RDW suggest iron deficiency. * If chronic GI loss is present, this could complicate DAPT for stroke. * Anemia evaluation initiated 12/07/2024. (7) Cigarette smoker: Code(s): F17.210 - Nicotine dependence, cigarettes, uncomplicated Status: Acute Assessment and Plan: * 12/07/2024 encouraged smoking cessation. Hospitalist MIPS Advance Care Plan I have confirmed that the patient's Advanced Care Plan is present, code status is documented, or surrogate decision maker is listed in patient medical record.: Yes Medication Reconciliation I have utilized all available resources to obtain, update and review the patients current medications (includes all prescriptions, OTC, herbals, cannabis, and nutritional supplements).: Yes
[2024-12-07] MEDS: ASPIRIN 81 MG ENTERIC TABLET PO (10:49)
[2024-12-07] MEDS: CLOPIDOGREL BISULFATE 75 MG TABLET PO (10:49)
[2024-12-07] MEDS: ATORVASTATIN 40 MG TABLET PO (10:49)
--- NOTE | 2024-12-07 11:00 | PC.NURSE ---
To MRI per wheelchair.
--- NOTE | 2024-12-07 11:04 | PCSTNOTE ---
Please refer to the Bedside Swallow Evaluation in the EMR. Please note, silent aspiration cannot be ruled out at bedside.
--- NOTE | 2024-12-07 11:30 | PC.NURSE ---
Returned to room from MRI per wheelchair.
--- NOTE | 2024-12-07 13:01 | P.CONNEU_ITS ---
Assessment and Plan Assessment and plan (1) TIA (transient ischemic attack): Code(s): G45.9 - Transient cerebral ischemic attack, unspecified Status: Acute (2) Carotid stenosis, left: Code(s): I65.22 - Occlusion and stenosis of left carotid artery Status: Acute (3) Cerebrovascular accident: Code(s): I63.9 - Cerebral infarction, unspecified Status: Acute Plan 1. Acute stroke infarct posterior aspect of the right internal capsule and right thalamus. 2. Occluded left distal vertebral artery with no clear picture of the left PICA 3. High-grade stenosis of the proximal left internal carotid artery that is 90% in degree 4. 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 Discussed with the family about all the diagnosis for the pros and cons 2. Will need to continue aspirin 81mg daily 3. Considering the 90% stenosis of the left internal carotid artery will need a vascular surgeon consult 4. Considering the incidental finding of the 3mm aneurysm the risk needs to be explained to obviously multiple factors have to be kept in mind. Consult date: 12/07/24 HPI: Ivis Perla is a 74 year old male Admitted to the hospital through the emergency room for the complaints of left-sided weakness and with the information that he was last known well around 2:00 p.m. Mr. about 30hours ago. Reportedly as per the family he fell for no known reasons and landed on his left knee and left shoulder. And at the time of visit to the ER he was complaining of left upper extremity weakness and left lower extremity weakness which was preventing him from being able to ambulate patient does have ongoing history of hypertension but no other medical problems. His medications were very simple inhaler therapy, he is not allergic to any medications, and past history is consistent with him being a smoker and currently everyday smoker with initial exam in the emergency room documenting left facial droop with smile, mildly coarse upper breath sounds, mild weakness of the left upper and left lower extremity with normal vital signs except the blood pressure being 207/77, normal initial CBC except hemoglobin of 10.2, BMP normal with sodium 135, UA negative and screening for all the viral infections negative, initial CT of the head negative for the bleed, and MRI today with 1cm ovoid acute infarct at the posterior aspect of the right internal capsule and right thalamus in addition to moderate chronic microvascular ischemic changes and special note of distal left vertebral artery flow wide not visible raising the possibility of proximal occlusion, patient had the CTA which documented occlusion of the distal left vertebral artery without clear delineation of the left PICA and high-grade stenosis of proximal left internal carotid artery that is 90 per since along with possible 3mm aneurysm at the anterior communicating artery region. His home medications include aspirin 81mg daily, he was started on clopidogrel 75mg daily, continued on atorvastatin 40mg daily, he did receive enoxaparin 40mg subcu in the ER . Review of Systems 2 Review of Systems: All systems reviewed & are unremarkable except as noted in HPI and below PMFSH Past Medical History Medical History Cigarette smoker Essential hypertension COPD (chronic obstructive pulmonary disease) Family History Family History Sibling Heart valve problem Mother Coarse tremors Father Hypertension Social History Social History Social History: Lives with daughter's family. Full code. Smokes 3-4 cigarettes per day. No alcohol or recreational drug use. Smoking status: Current every day smoker Tobacco type: cigarettes Alcohol intake: never Substance use: never Do You Feel Safe in your Home?: Yes Lack of Transportation: No Lack of Food: Never True Current Housing: I Have Housing Concerned About Future Housing: No Difficulty Paying Gas/Electric Bills: No Difficulty Paying for Meds: No Currently Unemployed: No Education: Grade School Difficulty w/ Childcare or Family Care: No Living arrangements: with family Occupation/Education: retired Spiritual care concerns: No Meds Home Medications and Allergies Home Medications ?Medication ?Instructions ?Recorded ?Confirmed ?Type albuterol sulfate 90 mcg/actuation 2 puff inhalation Q6H PRN 12/07/24 12/07/24 History aerosol inhaler shortness of breath or wheezing budesonide-formoterol HFA 160 2 puff inhalation BID 12/07/24 12/07/24 History mcg-4.5 mcg/actuation aerosol inhaler (Symbicort) Allergies Allergy/AdvReac Type Severity Reaction Status Date / Time No Known Allergies Allergy Verified 12/06/24 17:03 Vital Signs Vital Signs - 24 hr 12/06/24 16:59 12/06/24 19:31 12/06/24 19:32 Temperature 37.2 C Pulse Rate 68 69 64 Respiratory Rate 16 21 H 17 Blood Pressure 207/77 H 241/94 H Pulse Oximetry 100 100 100 Oxygen Delivery Room Air 12/06/24 19:41 12/06/24 19:45 12/06/24 19:53 Temperature 36.6 C Pulse Rate 65 86 71 Respiratory Rate 20 19 20 Blood Pressure 235/93 H 235/93 H Pulse Oximetry 100 100 100 Oxygen Delivery Room Air 12/06/24 20:16 12/06/24 20:54 12/06/24 21:04 Temperature Pulse Rate 66 79 85 Respiratory Rate 17 27 H 19 Blood Pressure Pulse Oximetry 100 Oxygen Delivery 12/06/24 21:05 12/06/24 21:50 12/06/24 23:44 Temperature Pulse Rate 86 98 97 Respiratory Rate 22 H 18 Blood Pressure 198/108 H 199/82 H Pulse Oximetry 100 99 Oxygen Delivery 12/06/24 23:45 12/07/24 03:00 12/07/24 05:42 Temperature Pulse Rate 93 Respiratory Rate 17 Blood Pressure Pulse Oximetry 99 Oxygen Delivery 12/07/24 05:48 12/07/24 06:00 12/07/24 07:59 Temperature 36.7 C Pulse Rate 93 95 Respiratory Rate 17 14 Blood Pressure 185/73 H Pulse Oximetry 99 100 Oxygen Delivery Room Air Room Air 12/07/24 08:00 12/07/24 12:00 Temperature Pulse Rate 104 H 94 Respiratory Rate Blood Pressure Pulse Oximetry Oxygen Delivery Exam 2 Narrative: Reveals him to be awake alert cooperative in no obvious acute distress, head normocephalic with no bruit, ear nose throat examination normal, neck supple with no cervical bruit, abdomen is soft nontender normal bowel sounds, neurologically he is awake alert he is aware of being in the hospital his daughter and [id number] happened to be in the room his speech is not dysphasic not dysarthric not dysphonic he was able to carry on some conversation with me in the in the language his speech was definitely normal lipids round regular feels the vision full extraocular movements full face symmetrical tongue midline motor examination revealed him to have mild left upper extremity drift against gravity deep tendon reflexes were slightly asymmetric and plantars were downgoing Results Labs 12/06/24 21:02 12/06/24 21:01 Labs: Short CBC 12/06/24 Range/Units 21:02 WBC 5.8 (4.5-10.0) K/mm3 Hgb 10.2 L (14.0-18.0) g/dL Hct 35.5 L (42.0-52.0) % Plt Count 383 H (150-375) k/mm3 BMP 12/06/24 21:01 Sodium 135 L Potassium 4.4 Chloride 102 Carbon Dioxide 24 BUN 16 Creatinine 1.01 Glucose 93 Calcium 9.1 Cardiac Enzymes 12/06/24 Range/Units 21:01 Troponin I 0.014 (0.000-0.034) ng/mL Liver Function 12/06/24 Range/Units 21:01 Total Bilirubin 0.5 (0.2-1.3) mg/dL AST 27 (17-59) U/L ALT 13 (6-50) U/L Alkaline Phosphatase 85 (38-126) U/L Albumin 4.1 (3.5-5.1) g/dL Urine 12/06/24 Range/Units 21:47 Urine Color Yellow (Yellow) Urine Appearance Clear (Clear) Urine pH 6.0 (5.0-9.0) Ur Specific Mck[place] 1.010 (1.001-1.035) Urine Protein Negative (Negative) mg/dL Urine Glucose (UA) Negative (Negative) mg/dL
--- NOTE | 2024-12-07 15:27 | P.DS_ITS ---
DS: Admitting Diagnosis Discharge Date 12/07/2024 Admitting Diagnosis stroke with left hemiparesis DS: Discharge Diagnosis Discharge Diagnosis (1) Cerebrovascular accident: Code(s): I63.9 - Cerebral infarction, unspecified Status: Acute Assessment and Plan: * Likely occurred sometime between 2:00 p.m. on December 05 late afternoon December 06. * Presented with left hemiparesis and slurred speech. * CT head negative stroke, bleed, or mass. * CTA head and neck with 90% occlusion of left internal carotid artery and occlusion of left vertebral artery. * However his left hemiparesis suggests right middle cerebral artery territory stroke, not related to the aforementioned vascular findings. * 12/07/2024 discussed with daughter and [id number] and patient. * Initiate ASA, clopidogrel, statin. * Allow permissive hypertension for first 48 hours. * Monitor on telemetry. * Echo doppler. * MRI brain 12/07/2024 confirmed right thalamic and internal capsule stroke. (2) Essential hypertension: Code(s): I10 - Essential (primary) hypertension Status: Acute Assessment and Plan: * Received 1 dose of hydralazine in the emergency department her 89. * 12/07/2024 blood pressure 185/73. * 12/07/2024 daughter to bring in medications so that his home regimen can be restarted. * His EKG suggests that blood pressure has not been optimally controlled due to left ventricular hypertrophy and repolarization abnormality. (3) Carotid stenosis, left: Code(s): I65.22 - Occlusion and stenosis of left carotid artery Status: Acute Assessment and Plan: * Unrelated to his current symptoms (4) Obstruction of left vertebral artery: Code(s): I65.02 - Occlusion and stenosis of left vertebral artery Status: Acute Assessment and Plan: * Unrelated to his current symptoms (5) COPD (chronic obstructive pulmonary disease): Code(s): J44.9 - Chronic obstructive pulmonary disease, unspecified Status: Acute Assessment and Plan: * Continue inhaler (6) Microcytic hypochromic anemia: Code(s): D50.9 - Iron deficiency anemia, unspecified Status: Acute Assessment and Plan: * Severity of microcytosis suggests possible underlying alpha-thalassemia trait. * Elevated platelet count and RDW suggest iron deficiency. * If chronic GI loss is present, this could complicate DAPT for stroke. * Anemia evaluation initiated 12/07/2024. (7) Cigarette smoker: Code(s): F17.210 - Nicotine dependence, cigarettes, uncomplicated Status: Acute Assessment and Plan: * 12/07/2024 encouraged smoking cessation. DS: Summary Hospital Course Hospital Course: Admitted with left hemiparesis. CT of brain revealed occlusion of left vertebral artery and 90% stenosis of left internal carotid. CT brain was negative. 12/07 MRI brain showed infarct to the right thalamus and internal capsule on the right. Symptoms remained stable. He was ambulatory with a left hemiparetic gait. Speech was slightly slurred. He passed swallowing evaluation Prior to discharge he and his family admitted that he had not been taking his son due to running of the supply from [facility]. The importance of taking his blood pressure medicine was stressed to the patient and family. The importance of smoking cessation to the patient and family. They understand that it is imperative that he stop smoking now. His daughter brought in his medications which daily losartan with HCTZ 40-12.5 daily and budesonide-beta agonist inhaler 2 puffs twice daily. He has Medicaid coverage for insurance and will obtain his medications from [facility] pharmacy [place]. Time Spent with Patient Time attestation: Total time spent providing and/or coordinating discharge services: 35 min Exam Narrative: HEENT: EOMI, PERRL, sclerae nonicteric, pharyngeal mucosa pink and intact NECK: No JVD, adenopathy, or thyromegaly CHEST: Normal effort. Sounds with scattered rhonchi. No goals. Slight expiratory wheeze bilaterally anteriorly and posteriorly. HEART: NL S1/S2, regular, no murmur ABDOMEN: BS+, soft, nontender, no mass, no bruits EXTREMITIES: No cyanosis, edema, or clubbing. PULSES: Pedal pulses 1+ bilaterally. Radial pulses 2+. NEUROLOGIC: CN with mild left facial droop, mild slurring of speech. Right legal referee 5/5, left legal referee 4/5, right foot dorsiflexion and plantar flexion 5/5, left foot for over 5. DTRs 2+ at the right biceps triceps and knee trace at right ankle. Slightly increased at left biceps 2+ left triceps 2+ left knee trace left ankle. Babinski's negative bilaterally. MUSCULOSKELETAL: No gross deformity to visual inspection. PSYCH: Alert. Oriented to person, place, and time. DS: Data Data Completed and Pending Labs on day of discharge: Labs from last 24 hours 12/06/24 12/06/24 12/06/24 21:47 21:02 21:01 WBC 5.8 RBC 6.12 Hgb 10.2 L Hct 35.5 L MCV 58.0 L MCH 16.7 L MCHC 28.7 L RDW 18.6 H Plt Count 383 H MPV 9.0 Immature Gran % (Auto) 0.5 Neut % (Auto) 60.9 Lymph % (Auto) 20.9 [place] % (Auto) 12.0 H Eos % (Auto) 5.2 H Baso % (Auto) 0.5 Lymph # (Auto) 1.20 [place] # (Auto) 0.7 H Eos # (Auto) 0.3 Baso # (Auto) 0.0 Abs Immat Gran (auto) 0.03 Absolute Neuts (auto) 3.5 Absolute Nucleated RBC 0.000 Nucleated RBC % 0.0 Platelet Estimate Slightly increased Anisocytosis 1+ Microcytosis 2+ Ovalocytes 1+ Schistocytes None seen PT 13.6 INR 1.0 APTT 30.9 D-Dimer < 0.27 Sodium 135 L Potassium 4.4 Chloride 102 Carbon Dioxide 24 Anion Gap 9 BUN 16 Creatinine 1.01 Estim Creat Clear Calc 51 Estimated GFR > 60 Glucose 93 POC Capillary Glucose Calcium 9.1 Total Bilirubin 0.5 AST 27 ALT 13 Alkaline Phosphatase 85 Troponin I 0.014 Total Protein 7.0 Albumin 4.1 TSH 3.420 Urine Color Yellow Urine Appearance Clear Urine pH 6.0 Ur Specific [place] 1.010 Urine Protein Negative Urine Glucose (UA) Negative Urine Ketones Negative Ur Blood (Man) Negative Urine Nitrate Negative Urine Bilirubin Negative Urine Urobilinogen 0.2 Leukocyte Esterase Rfl Negative Influenza A (RT-PCR) Negative Influenza B (RT-PCR) Negative RSV (RT-PCR) Negative SARS-CoV-2 RNA (RT-PCR) Negative 12/06/24 20:51 WBC RBC Hgb Hct MCV MCH MCHC RDW Plt Count MPV Immature Gran % (Auto) Neut % (Auto) Lymph % (Auto) [place] % (Auto) Eos % (Auto) Baso % (Auto) Lymph # (Auto) [place] # (Auto) Eos # (Auto) Baso # (Auto) Abs Immat Gran (auto) Absolute Neuts (auto) Absolute Nucleated RBC Nucleated RBC % Platelet Estimate Anisocytosis Microcytosis Ovalocytes Schistocytes PT INR APTT D-Dimer Sodium Potassium Chloride Carbon Dioxide Anion Gap BUN Creatinine Estim Creat Clear Calc Estimated GFR Glucose POC Capillary Glucose 107 H Calcium Total Bilirubin AST ALT Alkaline Phosphatase Troponin I Total Protein Albumin TSH Urine Color Urine Appearance Urine pH Ur Specific [place] Urine Protein Urine Glucose (UA) Urine Ketones Ur Blood (Man) Urine Nitrate Urine Bilirubin Urine Urobilinogen Leukocyte Esterase Rfl Influenza A (RT-PCR) Influenza B (RT-PCR) RSV (RT-PCR) SARS-CoV-2 RNA (RT-PCR) Discharge Plan Discharge Consulting providers: Delvis Vallejo Discharging Clinician: Wayne Porter Activity: no straining and no driving Diet: heart healthy and low sodium Patient Instructions: How to Stop Smoking (GEN), Cigarette Smoking and Your Health (GEN), Ischemic Stroke (GEN), Self Care Measures After a Stroke (GEN), Stroke (GEN), Right Hemispheric Stroke (GEN) Patient Language: Azerbaijani Follow-up/Referrals: Prakash,MD Ted [Primary Care Provider] - 1 Week (Needs confirmation of blood pressure control. Needs referral to vascular surgeon. ) Discharge Medications: New aspirin 81 mg Tablet,Delayed Release (Dr/Ec) 81 mg PO QAM Qty: 30 0RF atorvastatin 40 mg Tablet 40 mg PO DAILY Qty: 30 0RF clopidogrel 75 mg Tablet 75 mg PO QAM Qty: 30 0RF telmisartan-hydrochlorothiazid 40-12.5 mg tablet 1 tablet PO DAILY Qty: 30 0RF Continued albuterol sulfate 90 mcg/actuation HFA aerosol inhaler 2 puff INHALATION Q6H PRN (Reason: shortness of breath or wheezing) Qty: 1 0RF budesonide-formoterol [Symbicort] 160-4.5 mcg/actuation HFA aerosol inhaler 2 puff INHALATION BID Qty: 1 0RF Date of admission: 12/07/24 03:18 Primary Care Provider: PrakashTed Admitting Provider: Shanell Hunter Attending physician on admission: Shanell Hunter Condition: Stable
--- NOTE | 2024-12-08 12:41 | PC.NURSE ---
Called the following medications into [facility]. ASA, Atorvastin,clopidogrel, and Telmisartan-HCTZ per Dr. Porter's orders on dc plan.
--- NOTE | 2024-12-08 13:56 | PC.NURSE ---
Telmisartan HCTZ- was discontinued. Dr. Porter ordered Losartan HCTZ 100-12.5 one table by mouth daily, #30 with no refills.
== END 2024-12-07 16:30 | disposition home or self-care (01) | DRG 45 ==
LOC: ANHED 12-07 03:57 → ANH3MEDSUR 12-07 05:46
PROVIDERS: Admitting Provider Internal Medicine; Emergency Provider Registered Nurse; PCP Family Medicine; Visit Provider Internal Medicine
DX: I63.9 Cerebral infarction, unspecified (principal); G81.94 Hemiplegia, unspecified affecting left nondominant side; R47.81 Slurred speech; R29.810 Facial weakness; I10 Essential (primary) hypertension; I65.22 Occlusion and stenosis of left carotid artery; I65.02 Occlusion and stenosis of left vertebral artery; J44.9 Chronic obstructive pulmonary disease, unspecified; D50.9 Iron deficiency anemia, unspecified; F17.210 Nicotine dependence, cigarettes, uncomplicated; R29.703 NIHSS score 3
CPT/HCPCS: 36415; 70450; 70496; 70498; 70553; 71046; 73030; 73564; 80053; 81003; 82948; 84443; 84484; 85025; 85380; 85610; 85730; 87637; 92610; 93005; 96374; 97161; 97165; 99285; A9270; A9577; J0360; J1650; Q9967

== ENCOUNTER 2024-12-18 03:30 | Emergency (ER) | payer OTHER, SELFPAY ==
[2024-12-18] VITALS (8 sets, daily range): BP systolic 119–183; BP diastolic 47–167; PULSE 110–137; RESP 18–36; TEMP 37.7–39; O2SAT 96–99
--- NOTE | ~2024-12-18 | XR_ITS ---
Portable chest x-ray Comparison: 12/06/2024 Clinical History: Cough, fever Findings: There is COPD pattern of the lungs with probable linear left midlung scarring. No acute pu lmonary abnormality evident. Cardiomediastinal silhouette is stable. Bones and soft tissues are unre markable. Impression: COPD with linear left midlung scarring. Reviewed, dictated and finalized at location . SPEED OPERATOR Impression: COPD with linear left midlung scarring.
[2024-12-18] MEDS: ACETAMINOPHEN 500 MG TABLET 1000 MG PO (04:10)
[2024-12-18] MEDS: SODIUM CHLORIDE 0.9% IV 1,000 ML 999 ML IV CONT ×2 (04:10→05:31)
--- NOTE | 2024-12-18 04:11 | ED.SOB ---
HPI - SOB/Dyspnea General Chief Complaint: Shortness of Breath/Dyspnea Stated Complaint: ?HTN, FLU S/S, LEG PAIN Time Seen by Provider: 12/18/24 03:41 Source: patient and family Mode of arrival: EMS Limitations: language barrier and clinical condition History of Present Illness HPI Narrative: Patient presents with report of shortenss of breath.from home. He has been very tired and complains of bilateral leg pain, particularly in his knees. Other family members sick before and he has been sick for a few days but seemed to get acutely worse last night around 6pm. He had a dose of Mucinex at that time and his BP med. Attempted to use interpretive services #[id number] but patient too unwell to answer questions/pay attention. Family answering most questions for him. They occasionally serve as chief mechanical officer and ask him questions. Recently seen her with left sided arm and leg deficits concerning for stroke. It seems full resolution of deficits including the facial asymmetry but now the facial asymmetry has recurred. Patient coughing frequently with tongue out/protruding at times. He endorses chest pain. Uses an inhaler and smokes 0.25 PPD. He has been coughing a wet cough. Related Data Allergies Allergy/AdvReac Type Severity Reaction Status Date / Time No Known Allergies Allergy Verified 12/06/24 17:03 [facility] Past Medical History Medical History Cigarette smoker Essential hypertension COPD (chronic obstructive pulmonary disease) Family History Family History Sibling Heart valve problem Mother Coarse tremors Father Hypertension Social History Social History Social History: Lives with daughter's family. Full code. Smokes 3-4 cigarettes per day. No alcohol or recreational drug use. Smoking status: Current every day smoker Tobacco type: cigarettes Alcohol intake: never Substance use: never Do You Feel Safe in your Home?: Yes Lack of Transportation: No Lack of Food: Never True Current Housing: I Have Housing Concerned About Future Housing: No Difficulty Paying Gas/Electric Bills: No Difficulty Paying for Meds: No Currently Unemployed: No Education: Grade School Difficulty w/ Childcare or Family Care: No Living arrangements: with family Occupation/Education: retired Spiritual care concerns: No Exam Narrative: GENERAL: Illl-appearing, in mild acute distress. Appears weak HEAD: Normocephalic, atraumatic. EYES: Non injected, non icteric ENT: no epistaxis. NECK: Supple. CHEST: Respiratory distress, tachypneic in the 30s, frequently coughing. Coarse bilateral breath sounds. HEART: Tachycardic rate and rhythm. . ABDOMEN: Soft, nondistended. EXTREMITIES: Normal range of motion. No lower extremity edema. Moves all extremities. SKIN: Very Warm, dry, no rash. NEURO: Alert and oriented x3. Mild Loss of nasolabial fold on the left. Speech appears dysarthric and he frequently speaks and coughs with tongue protruding. PSYCH: Congruent mood and affect. Course Vital Signs Vital signs: Vital Signs Temperature 102.2 F H 12/18/24 03:29 Pulse Rate 136 H 12/18/24 03:29 Respiratory Rate 36 H 12/18/24 03:29 Blood Pressure 173/111 H 12/18/24 03:29 Pulse Oximetry 99 12/18/24 03:29 Oxygen Delivery Room Air 12/18/24 03:29 Temperature 99.8 F H 12/18/24 06:57 Pulse Rate 112 H 12/18/24 07:52 Respiratory Rate 22 H 12/18/24 07:52 Blood Pressure 165/82 H 12/18/24 07:52 Pulse Oximetry 96 12/18/24 06:57 Oxygen Delivery Room Air 12/18/24 03:42 MDM - SOB/Dyspnea MDM Narrative Medical decision making narrative: Patient presents with report of shortenss of breath, cough, weakness, and bilateral knee pain. In the emergency department he is febrile at 102.2? F, tachypneic at 36, tachycardic with a rate of 136, and hypertensive but saturating appropriately on room air. 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 At the time he also had focal hazy airspace opacity suspicious for pneumonia as well as concern for COPD on chest x-ray. However, there is no mention of the concern for pneumonia in ED note or in hospitalist note ; so this it appears this may have been under/untreated . Family refusing that blood work be obtained. Nurse made several attempts as did I. They state blood was taken last week and we explained that many of his symptoms are new. They are very concerned that we would be taking too much blood and he is already so weak. Discussed how many millilieters are in each vial/tube and that conveyed the relative amount given how much blood is in the body. Discussed this at length. Patient also refusing. Discussed each tube and the lab information it can give in regards to hemoglobin/anemia and need for possible transfusion, kidney and liver function, heart function, electrolyte abnormalities, blood cultures. They are still refusing. a 2 L of IV fluids as ordered since he is still tachycardic and will order ceftriaxone and azithromycin for presumed pneumonia. Patient's viral swab does come back flu positive. Multiple reassessments at bedside. Family seem very concerned about his cough and how weak he is but are still declining lab work. They want to take him home to care for him. Discussed how serious his condition is and that although they might try with supportive care, I had strong concerns because of how ill he was and the seriousness of influenza especially in a patient of his age and with comorbidities. Patient has received a breathing treatment. Lungs still coarse. He oscilates between sleeping and appearing very ill to attempting to get out of bed to show that he still has strength, only to collapse back into the bed. I noted that patient could from the seriousness of this virus. They still want to discharge home. Otherwise not altered and patient has capacity to make this choice. I urged them to come back at any time. At the time of discharge they did question if patient could be admitted but w/o blood work. I [facility] who refuses given can not medically take care of him and treat if do not know how else the flu is affecting other organ systems. Family ok with with this and discharged. I did provide discharged instructions and prescriptions and again advised they come back if he is not improving or if he worsens. === Critical CaRE: Due to patient's condition and high probability of multi organ system involvement at high risk of decompensation/deterioration/, time spent discussing with patient and family, reassessing, interpreting/reviewing labs/studies, gathering data/information, chart review, and documenting. Independent of separately billable procedures. Differential Diagnosis Differential diagnosis: Likely other ( Stroke versus recrudescence; acute viral syndrome/influenza ; covid; PNA; COPD exacerbation; UTI; sepsis ) Medical Records Attestation: I reviewed the patient's medical records. Medical records narrative: Patient had a CT head without contrast study performed on 12/07/2024 which was without acute intracranial hemorrhage, etc.. He also had CTA which showed occlusion of the distal left vertebral artery without clear delineation of left PICA, high-grade stenosis of the proximal left internal carotid artery, 90% degree, and a possible 3 mm aneurysm at the anterior to indicating artery region. MRI showed 1cm Ovoid acute infarct to the posterior aspect of the right internal capsule/right thalamus. Moderate chronic microvascular ischemic changes. Distal left vertebral artery flow -void not seen. Proximal occlusion is a consideration. Lab Data Attestation: I reviewed the patient's lab results. Labs: Lab Results 12/18/24 Range/Units 05:37 Urine Color Yellow (Yellow) Urine Appearance Clear (Clear) Urine pH 5.5 (5.0-9.0) Ur Specific [place] 1.011 (1.001-1.035) Urine Protein Negative (Negative) mg/dL Urine Glucose (UA) Trace H (Negative) mg/dL Urine Ketones Negative (Negative) mg/dL Ur Blood (Man) Negative (Negative) Urine Nitrate Negative (Negative) Urine Bilirubin Negative (Negative) Urine Urobilinogen 0.2 (<2.0) mg/dL Leukocyte Esterase Rfl Negative (Negative) MARIXA/UL Influenza A (RT-PCR) Positive A (Negative) Influenza B (RT-PCR) Negative (Negative) RSV (RT-PCR) Negative (Negative) SARS-CoV-2 RNA (RT-PCR) Negative (Negative) Imaging Data Attestation: I personally reviewed and interpreted this imaging study as follows: My impression: concern for possible right middle lobe infiltrate on my independent interpretation Radiologist's impression: Impressions Chest X-Ray 12/18/24 06:36 Impression: COPD with linear left midlung scarring. ECG Data EKG #1: Attestation: I personally reviewed and interpreted this ECG as follows: ECG completion date: 12/18/24 ECG completion time: 05:16 Interpretation: sinus tachycardia at a rate of 110 beats per minute. MA interval 164. QRS 94. QT/ QTC 360/425. Pre populated algorithm suggests left ventricular hypertrophy ; S wave depth in V1 + tallest R wave height in V5-6 is >35mm but R wave in lead I + S wave in lead III is <25mm. Critical Care Time Critical Care Time Critical Care Time: Yes Total Critical Care Time: 35 Discharge Plan Discharge Clinical Impression: Influenza A Patient Disposition: Left Against Medical Advice Condition: Serious Instructions: Influenza (DC) Additional Instructions: as we discussed, he is very sick with the flu but you are choosing to take him home to attempt to take care of him there. Use the medications prescribed for pain, and cough. follow-up with your primary care physician. Do not hesitate to return to the emergency department if he has worsening/new/persistent symptoms. Patient Language: Burundian Prescriptions: New benzonatate 100 mg capsule 100 mg PO BID PRN (Reason: cough) Qty: 20 0RF ibuprofen 600 mg tablet 600 mg PO TID PRN (Reason: pain) Qty: 30 0RF albuterol sulfate 90 mcg/actuation HFA aerosol inhaler 1 inh inhalation QID PRN (Reason: shortness of breath or wheezing) Qty: 6.7 0RF acetaminophen 500 mg capsule 1,000 mg PO Q6H PRN (Reason: pain) Qty: 30 0RF No Action atorvastatin 40 mg Tablet 40 mg PO DAILY Qty: 30 0RF clopidogrel 75 mg Tablet 75 mg PO QAM Qty: 30 0RF aspirin 81 mg Tablet,Delayed Release (Dr/Ec) 81 mg PO QAM Qty: 30 0RF telmisartan-hydrochlorothiazid 40-12.5 mg tablet 1 tablet PO DAILY Qty: 30 0RF albuterol sulfate 90 mcg/actuation HFA aerosol inhaler 2 puff INHALATION Q6H PRN (Reason: shortness of breath or wheezing) Qty: 1 0RF budesonide-formoterol [Symbicort] 160-4.5 mcg/actuation HFA aerosol inhaler 2 puff INHALATION BID Qty: 1 0RF Follow-up/Referrals: Prakash,MD Ted [Primary Care Provider] - Time of Disposition: 07:28
--- NOTE | 2024-12-18 04:15 | ECG_ITS ---
Test Date: 2024-12-18 05:16:52 Measurements Intervals [place] Rate: 110 P: 85 GA: 164 QRS: 55 QRSD: 94 T: 100 QT: 360 QTc: 489 Interpretive Statements SINUS TACHYCARDIA LEFT VENTRICULAR HYPERTROPHY AND ST-T CHANGE BORDERLINE ST-T WAVE ABNORMALITY- INF/HIGH LAT LEADS ABNORMAL ECG Compared to ECG 12/06/2024 20:56:05 HEART RATE HAS INCRASED Electronically Signed On 12-18-2024 06:20:20 SAUSAGE STUFFER by Denilson Cisneros D.O.
--- OUTSIDE RECORDS SUMMARY | 2024-12-18 04:15 | XMS_ITS | Referral Summary ---
Author Organization 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
--- OUTSIDE RECORDS SUMMARY | 2024-12-18 04:15 | XMS_ITS | Clinical Summary ---
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
--- OUTSIDE RECORDS SUMMARY | 2024-12-18 04:15 | XMS_ITS | Data Portability ---
Author Organization [place] 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 Volcanology Teacher variances may occur. Despite proofreading, typographical errors may occur. Occasional wrong-word or 'bnwow-m-hxpy' substitutions may have occurred due to the inherent limitations of voice recording. Read the chart carefully and recognize, using context, where substitutions have occurred. Not available 06/10/2024 13:05:47 07/08/2024 07/08/2024 This note is dictated and transcribed by [employer]. Volcanology Teacher variances may occur. Despite proofreading, typographical errors may occur. Occasional wrong-word or 'pstqm-m-cuaz' substitutions may have occurred due to the inherent limitations of voice recording. Read the chart carefully and recognize, using context, where substitutions have occurred. Not available 07/08/2024 12:26:17 08/05/2024 08/05/2024 This note is dictated and transcribed by [employer]. Volcanology Teacher variances may occur. Despite proofreading, typographical errors may occur. Occasional wrong-word or 'nboeo-w-cbib' substitutions may have occurred due to the inherent limitations of voice recording. Read the chart carefully and recognize, using context, where substitutions have occurred. Not available 08/05/2024 14:48:44 08/26/2024 08/26/2024 This note is dictated and transcribed by [employer]. Volcanology Teacher variances may occur. Despite proofreading, typographical errors may occur. Occasional wrong-word or 'qzrvu-l-gcre' substitutions may have occurred due to the inherent limitations of voice recording. Read the chart carefully and recognize, using context, where substitutions have occurred. Not available 08/26/2024 12:28:49 12/11/2024 12/11/2024 I have reconciled the patient's medications post their discharge from inpatient facility. D/w pt, his son, his daughter (on the phone) about his findings and further plan of care. Medication compliance and regular f/u explained in detail. All meds verified with pt. Meds as directed. BP and fall risk precautions explained. Educated about alarming symptoms to monitor at home. F/u in 4 weeks. [email or web address] Not available 12/11/2024 12:06:05 Plan of Treatment Reminders Order Date Submit Date Provider Last Modified By Organization Details Last Modified Time Details Appointments Follow Up 2024 10:30A M Ted Randall MD Not available Not available Not available Lab None recorded. Referral dermatolo gist referral 2023 024 [email or web address] [facility], [address], [address], [place], [address], 09/02/2024 08:21:[address] referral - Please call patient to schedule an appointme nt. Thank you. 2024 025 [facility], [facility] , [address], [place], [address], 12/11/2024 13:15:26 home health referral - Please call patient to schedule an appointme nt. Thank you. 2024 025 [email or web address] [facility], [address] [place], [address], 12/15/2024 15:18:54 vascular surgeon referral - Lt internal carotid and vertebral artery stenosis. Please call patient to schedule an appointme nt. Thank you. 2024 025 [facility] Referral Fax Line, [address] [facility] [address], [place], [address], 12/11/2024 13:55:20 Procedures None recorded. Surgeries None recorded. Imaging None recorded. Medication Orders halobetas ol propionat e 0.05 % topical cream [address] [facility], [address] [place] [address], [id number], 07/08/2024 12:28:19 ketoconaz ole 2 % topical cream [address] [facility], [address] [place] [address], [address], 08/26/2024 12:28:32 clopidogr el 75 mg tablet [address] [facility], [address] [place] [address], [address], 12/11/2024 11:49:53 aspirin 81 mg tablet,de layed release [address] [facility], [address] [place] [address], [address], 12/11/2024 11:49:53 losartan 100 mg tablet [address] [facility], [address] [place] [address], [address], 12/11/2024 11:49:53 amlodipin e 5 mg tablet [address] [facility], [address] [place] [address], [address], 12/11/2024 11:49:53 albuterol sulfate HFA 90 mcg/actua tion aerosol inhaler [address] [facility], [address] [place] [address], [address], 12/11/2024 11:49:56 Symbicort 160 mcg-4.5 mcg/actua tion HFA aerosol inhaler [address] [facility], [address] [place], [address], 12/11/2024 11:49:55 atorvasta tin 40 mg tablet [address] [facility], [address] [place], [address], 12/11/2024 11:49:55 polyethyl jessica glycol 3350 17 gram/dose oral powder [address] [facility], [address] [place], [address], 12/11/2024 11:49:56 docusate sodium 100 mg capsule [address] [facility], [address] [place], [address], 12/11/2024 11:49:54 Patient TargetsNo targets recorded. Patient Instructions Encounter Date Encounter Id Patient Instructions Last Modified By Organization Details Last Modified Time 12/11/2024 [id number] Thank you for your visit to our office today. We would like to request that you reach out to your referring or previous provider and request that they send us a Summary of Care in electronic form, so that we may have it on file in your medical record. At your visit, we had the medical records we needed to provide you with the best possible care; however, for insurance purposes, an electronic Summary of Care is beneficial. Thank you for your assistance in obtaining this information and we look forward to providing continued care to you. Please review your medication list from the Summary of Care for this visit. If there are any differences from what you are currently taking at home, please call us to discuss. [email or web address] Not available 12/11/2024 11:21:41 Homebound Status : {{Patient has an inability to leave the home without a taxing effort and assistance from another person Does not meet homebound status}} Required Home Health Services: {{none snf, physical therapy, occupational therapy snf, physical therapy snf}} Durable Medical Equipment needed: {{cane walker wal ker with seat manual wheelchair bedsid e commode oxygen}} Billing Guidelines CPT code 76257- Transitional Care Management services with moderate medical decision complexity (djtz-ov-gqkb visit within 14 days of discharge). CPT code 14419- Transitional Care Management services with high medical decision complexity (gqhv-be-zhkx visit within 7 days of discharge). Not available 12/11/2024 11:21:41 Reason for Referral Bite Block Maker Referral for P soriasis psoriasis Referring Physician: Juan Alberto Harris, Podiatric Surgery, Encounter Date: 07/08/2024 Neurologist Referral for Cer ebrovascular accident S/p Lt CVA Please call patient to schedule an appointment. Thank you. Referring Physician: Ted Randall [facility], Encounter Date: 12/11/2024 Vascular Surgeon Referral fo r Coronary artery stenosis Lt internal carotid and vertebral artery stenosis. Please call patient to schedule an appointment. Thank you. Referring Physician: Ted Randall [facility], Encounter Date: 12/11/2024 Home Health Referral for Cer ebrovascular accident Please call patient to schedule an appointment. Thank you. Referring Physician: Ted Randall [facility], Encounter Date: 12/11/2024 Results Created Date Observation Date Name Description Value Unit Range Abnormal Flag Note LastModifiedBy Organization Detail LastModifiedTime 12/07/1912/06/2024 CT, head + brain , w/o contr ast No observ ation record ed. [address], [address], 12/11/2024 11:37:41 12/07/19 25 12/06/2024 XR, chest , 2 view No observ ation record ed. [address], [address], 12/11/2024 11:37:41 12/07/19 25 12/06/2024 XR, knee, 3 view No observ ation record ed. [address] [place], [address], 12/11/2024 11:37:41 12/07/1912/06/2024 XR, shoul magda, 2 or more view No observ ation record ed. [address], [place], [address], 12/11/2024 11:37:41 12/07/1912/07/2024 CT, angio gram, head + neck, w/wo contr ast No observ ation record ed. [address], [place], [address], 12/11/2024 11:37:41 12/07/1912/07/2024 MRI, brain + brain stem, w/wo contr ast No observ ation record ed. [address], [place], [address], 12/11/2024 11:37:40 Result Notes None recorded. 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 4 14:38:07 Cigarette smoker 13880179 Active 2023 Ted Randall MD [address], [address], [place], [address] , [facility] 4 15:24:47 Bowel problem 137884634 Active 2023 Jessie Wileytracey rahman, [place] [facility] 4 11:00:46 Dizziness 373142679 Active 2023 Jessie Saurabh null, [place] [facility] 4 11:00:56 Skin problem 842022813 Active 2023 Jessie Suarabh rahman, [place] [facility] 4 11:01:14 Tinea pedis 2574831 Active 2023 Juan Alberto Harris DPM [address], [address], [place], [address] , [facility] 4 11:25:32 Severe dry skin 833216540 Active 2023 Juan Alberto Harris DPM [address], [address], [place], [address] , [facility] 4 11:37:40 [facility] 212[facility] Active 2023 Ted Randall MD [address], [address], [place], [address] , [facility] 4 11:38:30 Chronic idiopathic constipati on 78012750 Active 2023 Ted Randall MD [address], [address], [place], [address] , [facility] 4 11:50:53 Smoker 61280855 Active 2023 Ted Randall MD [address], [address], [place], [address] , [facility] 4 11:52:28 Psoriasis 9214633 Active 2023 Juan Alberto Harris DPM [address], [address], [place], [address] , [facility] [employer] 4 12:21:50 Cerebrovas cular accident 791893173 Active 2024 Ted Randall MD [address], [place], [address] , [facility] [employer] [facility] 5 11:18:17 Abnormal gait due to muscle weakness 663106496 Active 2024 Ted Randall MD [address], [place], [address] , [facility] [employer] [facility] 5 11:18:26 Coronary artery stenosis 029458783 Active 2024 Ted Randall MD [address], [place], [address] , [employer] [facility] 5 11:42:02 Hyperlipid emia 72755264 Active 2024 Ted Randall MD [address] [place] [address], [place], [address] , [employer] [facility] 5 11:44:13 Continuous dependence on chewing tobacco 6916112565912 07 Active 2024 Ted Randall MD [address] [address], [place], [address] , [employer] [facility] 5 12:06:31 Problem Notes None recorded. Procedures Surgical History Date Name Laterality Status Provider Name and Address Organization Details Recorded Time 5 Smoking Cessation completed Ted Randall MD [address], [place], [address], [facility] [employer] [facility] 12/11/2024 12:06:41 5 Transitional_C are_Management completed Daysi Donis RN [place] [employer] [facility] 12/11/2024 11:21:42 4 Smoking Cessation completed Ted Randall MD [address], [place], [address], [facility] [employer] [facility] 05/06/2024 12:18:02 05/15/202 4 Smoking Cessation completed Ted Randall MD [address], [place], [address], [facility] [employer] [place] [employer] [facility] 03/26/2024 11:43:52 4 Smoking Cessation completed Ted Randall MD [address], [place], [address], [employer] [facility] 01/07/2024 15:24:39 Hand completed Not Available [facility] 11/2022 22:03:58 Imaging Results Imaging Date Name Status LastModified by Organiz ation Details LastModified Time 12/06/2024 CT, head + brain, w/o contrast completed [address], [address], 12/11/2024 11:37:41 12/06/2024 XR, chest, 2 view completed [address], [address], 12/11/2024 11:37:41 12/06/2024 XR, knee, 3 view completed [address], [address], 12/11/2024 11:37:41 12/06/2024 XR, shoulder, 2 or more view completed [address], [address], 12/11/2024 11:37:41 12/07/2024 CT, angiogram, head + neck, w/wo contrast completed [address], [address], 12/11/2024 11:37:41 12/07/2024 MRI, brain + brain stem, w/wo contrast completed [address], [address], 12/11/2024 11:37:40 Procedure Notes None recorded. Medical Equipment None Reported. Allergies No known drug allergies Medications Name Sig Start Date Stop Date Status Note LastModified by Organization Details LastModified Time atorvastat in 40 mg tablet Take 1 tablet every day by oral route at bedtime for 90 days. 2024 active Not Available Not Available Not Avai lable prednisone 10 mg tablet Pt doesn't need Predniso ne anymore. active Not Available Not Available No t Available doxycyclin e hyclate 100 mg capsule Take 1 capsule twice a day by oral route as directed for 10 days. 01/07 completed Not Available Not Available Not Available cetirizine 10 mg tablet Take 1 tablet every day by oral route as needed for 30 days. 03/26 completed Not Available Not Available Not Available hydrocodon e 5 mg-acetami nophen 325 mg tablet TAKE 1 TABLET BY MOUTH EVERY 6 HOURS NEEDED FOR PAIN 08/24 completed Not Available Not Available Not Available clopidogre l 75 mg tablet Take 1 tablet every day by oral route as directed for 90 days. 2024 active Not Available Not Available Not Avai lable Zeasorb AF 2 % topical powder APPLY POWDER TOPICALL Y TO AFFECTED AREA(S) TWICE DAILY, INSIDE SOCK IN THE MORNING AND EVENING 12/11 completed Not Available Not Available Not Available amlodipine 5 mg tablet Take 1 tablet every day by oral route in the evening for 90 days. 2024 active Not Available Not Available Not Avai lable aspirin 81 mg tablet,del ayed release Take 1 tablet every day by oral route as directed for 90 days. 2024 active Not Available Not Available Not Avai lable triamcinol one acetonide 0.1 % topical cream APPLY A THIN LAYER EXTERNAL LY TO AFFCTED AREA TWICE DAILY active Not Available Not Available No t Available glycerin (child) rectal suppositor y 12/11 completed Not Available Not Available Not Available terbinafin e HCl 250 mg tablet TAKE 1 TABLET BY MOUTH ONCE DAILY FOR 14 DAYS 12/11 completed Not Available Not Available Not Available Kenalog 10 mg/mL suspension for injection In office injectio n administ ered by the provider 03/26 completed [facility]: 0003-04 94-20 Not Available Not Available Not Available docusate sodium 100 mg capsule Take 1 capsule twice a day by oral route as directed for 30 days. 2024 active Not Available Not Available Not Avai lable hydroxyzin e HCl 25 mg tablet Take 1 tablet every 6-8 hours by oral route as needed for 5 days. 01/07 completed Take as needed for itching . Not Available Not Available Not Available halobetaso l propionate 0.05 % topical cream APPLY CREAM TOPICALL Y TO AFFECTED AREA ONCE DAILY AND DO NOT EXCEED 50 GRAMS PER WEEK FOR 2 WEEK DURATION active Not Available Not Available No t Available polyethyle ne glycol 3350 17 gram/dose oral powder Take 17 g every day by oral route as directed for 30 days. 2024 active Not Available Not Available Not Avai lable albuterol sulfate HFA 90 mcg/actuat ion aerosol inhaler INHALE 2 PUFFS BY MOUTH EVERY 6 HOURS NEEDED FOR 10 DAYS 2024 active Not Available Not Available Not Avai lable ketoconazo le 2 % topical cream APPLY 2 GRAMS OF CREAM TOPICALL Y TO AFFECTED AREA(S) ON BOTH FEET ONCE DAILY FOR 2 WEEKS active Not Available Not Available No t Available losartan 100 mg tablet Take 1 tablet every day by oral route in the morning for 90 days. 2024 active Not Available Not Available Not Avai lable glycerin (adult) rectal suppositor y Insert 1 supposit ory as needed by rectal route as needed for 30 days. 12/11 completed Not Available Not Available Not Available losartan 100 mg-hydroch lorothiazi de 12.5 mg tablet active Not Available Not Available Not Available lidocaine (PF) 10 mg/mL (1 %) injection solution In office injectio n administ ered by the provider 03/26 completed [facility]: [id number] 76-17 Not Available Not Available Not Available Symbicort 160 mcg-4.5 mcg/actuat ion HFA aerosol inhaler INHALE 2 PUFFS BY MOUTH TWICE DAILY DIRECTED 2024 active Not Available Not Available Not Avai lable Vitals Date Recorded Body height Provider Name an d Address Organization Details Last Updated DateTime 06/10/2024 175.26 cm Jessie Wiley [place] [facility] [employer] 06/10/2024 12:29:04 Date Recorded Body height Body mass index (BMI) Body weight Heart rate Systolic blood pressure Diastolic blood pressure Provider Name and Address Organization Details Last Updated DateTime 4 175.26 cm 17.3 kg/m2 45778.3 1 g 85 /min 181 mm[Hg] 83 mm[Hg] Jessie Wiley [facility] [employer] [facility] 4 12:03:36 Date Recorded Body height Body mass index (BMI) Body weight Provider Name and Address Organization Details Last Updated DateTime 08/05/2024 175.26 cm 17.3 kg/m2 41811.31 g Shanita Horn [facility] [employer] [facility] 08/05/2024 11:42:34 Date Recorded Body height Body mass index (BMI) Body weight Heart rate Respiratory rate Oxygen saturation Oxygen saturation in Arterial blood by Pulse oximetry Provider Name and Address Organization Details Last Updated DateTime 4 175.26 cm 17.3 kg/m2 57269.3 1 g 89 /min 14 /min 97 % 97 % Shanita Horn [facility] [employer] [facility] 4 11:54:55 Date Recorded Body height Body mass index (BMI) Body weight Body temperature Oxygen saturation Oxygen saturation in Arterial blood by Pulse oximetry Heart rate Systolic blood pressure Diastolic blood pressure Provider Name and Address Organization Details Last Updated DateTime 5 165.1 cm 19.3 kg/m2 60490.7 1 g 97 [degF] 99 % 99 % 87 /min 200 mm[Hg] 96 mm[Hg] Daysi Donis RN [facility] [employer] [facility] 5 11:34:42 Social History Question Answer Notes LastModified by Organizat ion Details LastModified Time Tobacco Smoking Status Current Every Day Smoker Not Available [facility] 01/10/2023 22:03:55 What Is Your Level Of Alcohol Consumption? None [id number] Information not available 01/10/2023 Are You Blind Or Do You Have Difficulty Seeing? Yes [id number] Information not available 01/10/2023 In The 14 Days Before Symptom Onset, Have You Had Close Contact With A Laboratory-confirm ed COVID-19 While That Case Was Ill? No [id number] Information not available 01/10/2023 In The 14 Days Before Symptom Onset, Have You Had Close Contact With A Person Who Is Under Investigation For COVID-19 While That Person Was Ill? No [id number] [id number] Information not available 01/10/2023 Are You Deaf Or Do You Have Serious Difficulty Hearing? Yes [id number] Information not available 01/10/2023 What Type Of Diet Are You Following? REGULAR [id number] 026 Information not available 01/10/2023 What Was The Date Of Your Most Recent Tobacco Screening? 08/24/2021 [id number] Information not available 01/10/2023 Do You Have Any Pets? No [id number] [id number] Information not available 01/10/2023 Do You Have Smoke And Carbon Monoxide Detectors In Your Home? Yes [id number] Information not available 01/10/2023 Have You Recently Traveled Abroad? No [id number] 026 Information not available 01/10/2023 Are You Currently In School? No [id number] 026 Information not available 01/10/2023 Sex: Male Functional Status Question Answer Note LastModified by Organizat ion Details LastModified Time Do you have difficulty walking or climbing stairs? No [id number] [id number] Information not available 01/10/2023 Do you have transportation difficulties? No [id number].[id number] 026 Information not available 01/10/2023 Are you able to walk? YESWOREST [id number].[id number] 026 Information not available 01/10/2023 Do you have difficulty doing errands alone? No MIGRATION.[id number] 026 Information not available 01/10/2023 Are you able to care for yourself? Yes [id number] 026 Information not available 01/10/2023 Do you have difficulty dressing or bathing? No MIGRATION.[id number] 026 Information not available 01/10/2023 What is your exercise level? None [id number] 026 Information not available 01/10/2023 Mental Status Question Answer Note LastModified by Organizat ion Details LastModified Time Do you have difficulty concentrating, remembering or making decisions? No [id number] 6 Information not available 01/10/2023 Family History Relationship Description Onset Age of this Age Resolved Age Notes LastModified by Organization Details LastModified Time Daughter Hypertensive disorder [id number] Not available 01/10/2023 22:03:59 Medical History Condition Response BLINDNESS N RHEUMATIC FEVER N KIDNEY STONES N BLADDER PROBLEMS N MRSA N OTHER # 1 N POLIO N LUNG DISEASE/DISORDER N HISTORY OF DRUG ABUSE N COPD N RADIATION / CHEMOTHERAPY N Other # 2 N BLOOD DISEASES N SURGERY N EAR OR HEARING PROBLEMS N MUMPS N SHINGLES N FEMALE PROBLEMS / INFECTIONS N DEPRESSION (INCLUDING POST ) N BOWEL PROBLEMS Y STROKE/TIA N THYROID DISEASE N ULCERS N BENIGN PROSTATIC HYPERPLASIA N MEASLES N CERVICALGIA N HYPOTENSION N TB SKIN TEST N MYOCARDIAL INFARCTION N OBESITY N PARAPELGIA N GERD/NAUSEA N ANEURYSM N URINARY/BLADDER/KIDNEY PROBLEMS N CORONARY ARTERY DISEASE (CAD) N MENIERE'S DISEASE N ADDICTION CONCERNS N ENDOMETRIOSIS N USE OF BLOOD THINNERS N SKIN PROBLEMS Y EMPHYSEMA N GASTROINTESTINAL DISORDER N MUSCLE,JOINT OR BONE PROBLEMS N GASTROINTESTINAL BLEEDING N BLOOD CLOTS N ASTHMA N CATARACTS N ERECTILE DYSFUNCTION N GI PROBLEMS N CHF N Low Testosterone N NEUROPATHY N INFERTILITY N AIDS/HIV N FRACTURES N CHEMOTHERAPY / RADIATION N VISION/EYE PROBLEMS N LIVER DISEASE N MALE HYPOGONADISM N HYPERTENSION N TOURETTE'S N ANXIETY DISORDER N BLOOD TRANSFUSION N ANEMIA/BLOOD DISORDER N CHRONIC EAR INFECTIONS N BRONCHITIS N TUBERCULOSIS N GLAUCOMA N FOOT PROBLEM N DIVERTICULITIS N SLEEP APNEA N CHICKENPOX N ALLERGIES/HAYFEVER N INFECTIOUS DISEASE N PROSTATE N HEART ARRHYTHMIA N INSOMNIA N HIGH CHOLESTEROL / HYPERLIPIDEMIA N EYE PROBLEMS N HYPERTHYROIDISM N EATING DISORDER N EDEMA N CHRONIC PAIN SYNDROME N CAROTID BLOCKAGE N CONSTIPATION N BACK / NECK PROBLEMS N HAVE YOU BEEN HOSPITALIZED OR SEEN IN [facility] ER IN THE PAST YEAR ? N ATHEROSCLEROSIS N BREAST PROBLEMS N DIALYSIS N ECZEMA N FIBROMYALGIA N OSTEOPOROSIS N ARTHRITIS N NO SIGNIFICANT PAST MEDICAL HISTORY N APPENDICITIS N DIABETES, TYPE N BAD TEETH N HEARTBURN / REFLUX N ADD/ADHD N AUTISM SPECTRUM DISORDER (ASD) N HEPATITIS / LIVER DISEASE N PULMONARY DISEASE N GOUT N SLEEP DISORDER N ALZHEIMER'S DISEASE N PAIN N DEMENTIA N HERPES N SEIZURES/EPILEPSY N HEADACHES/MIGRAINES N VASCULAR DISEASE N PACEMAKER N DIZZINESS Y HEART DISEASE/HEART PROBLEMS N KIDNEY DISEASE N SCARLET FEVER N MULTIPLE SCLEROSIS N DEVELOPMENTAL OR BEHAVIORAL DISORDERS N MENTAL DISORDER/ILLNESS N CANCER: SPECIFY N CARDIAC ARRHYTHMIA N PNEUMONIA N ATRIAL FIBRILLATION N Gall Stones N PULMONARY EMBOLISM N AUTOIMMUNE DISEASE N Past Encounters Encounter ID Performer Location Encounter Start Date Encounter Closed Date Diagnosis/Indication Diagnosis SNOMED-CT Code Diagnosis ICD10 Code Diagnosis Note [id number] [facility] [address] [place] [address] 08/24/2021 00:00:00 08/24/2021 17:27:[id number] [address] 09/04/2022 00:00:00 09/04/2022 17:32:50 [id number] Ted Randall MD [address] [address] 01/07/2024 14:18:48 01/07/2024 15:27:48 Allergic contact dermatitis 315026031 L23.9 Pruritic rash 70960633 L 28.2 B/l feet Chronic ob structive pulmonary disease 21385345 J44.9 Cigarette smoker 5300991 7 F17.374 [id number] Ted Randall MD [address] [address] 03/26/2024 11:41:09 03/26/2024 12:22:16 Allergic contact dermatitis 534877877 L23.9 Pruritic rash 24763497 L 28.2 B/l feet Chronic ob structive pulmonary disease 14903528 J44.9 Cigarette smoker 8859949 7 F17.210 Xeroderma 69993511 E50.8 [id number] Juan Alberto Harris DPM [facility] Pod[facility] [address], [address] [address] 05/01/2024 10:56:49 05/01/2024 11:51:42 Tinea pedis 5011122 B35.3 educated on daily foot hygieneedu cated on shoe hygiene Severe dry skin 95130496 2 L85.3 recommend use of pumice stone and lotion daily [id number] Ted Randall MD [address] [address] 05/06/2024 11:30:53 05/06/2024 12:24:26 Adult health examination 492320709 Z00.00 Underweight 959628868 R6 3.6 Diabetes m ellitus screening 619586613 Z13.1 Chronic id iopathic constipation 65022571 K59.04 Smoker 49372316 F17.200 Chronic ob structive pulmonary disease 16496829 J44.9 [id number] Juan Alberto Harris DPM [facility] [address], [address] [address] 05/27/2024 11:29:52 06/11/2024 16:31:03 Tinea pedis 0798058 B35.3 educated on daily foot hygieneedu cated on shoe hygiene [id number] Juan Alberto Harris DPM [facility] [address], [address] [address] 06/10/2024 12:02:45 06/10/2024 14:57:31 Tinea pedis 7475447 B35.3 Continue ketoconazo le and triamcinol onefinish terbinafin epatient to daily soak with Betadine and water 50 50 for 15 minuteswas h it daily with Hibiclens dailyfollo w-up in 3 weeks- possible biopsy rule out plaque psoriasis [id number] Juan Alberto Harris DPM [facility] [address], [address] [address] 07/08/2024 11:33:50 07/10/2024 11:24:59 Psoriasis 7890892 L40.9 bilateral feet.Daily foot hygienesho e hygiene- recommend new shoe gearno barefoot walkingfol low-up 3 weeks [id number] Juan Alberto Harris DPM [facility] [address], [address] [address] 08/05/2024 11:30:35 08/06/2024 13:37:24 Severe dry skin 360878736 L85.3 recommend use of pumice stone and lotion daily Tinea pedis 8199742 B35. 3 Significan t improvemen tContinue ketoconazo lewash it daily with Hibiclens dailyfollo w-up 2 weeks [id number] Juan Alberto Harris DPM [facility] [address], [address] [address] 08/26/2024 11:24:52 11/07/2024 09:34:25 Tinea pedis 2808107 B35.3 Significan t improvemen tContinue ketoconazo lewash it daily with Hibiclens dailyfollo w-up 2 weeks [id number] Daysi DonisRN [facility] [address] [address] 12/11/2024 11:12:39 12/11/2024 12:04:40 Hospital inpatient stay within past 30 days 7688512458 106 Z76.89 Cerebrovas cular accident 807642561 I63.9 Abnormal g ait due to muscle weakness 456496872 M62.81 Transition of care 77910 63402 105 Z75.8 Chronic ob structive pulmonary disease 78181684 J44.9 Coronary a rtery stenosis 741809795 I25.10 Lt Chronic id iopathic constipation 97770917 K59.04 Hyperlipidemia 25795436 E78.5 Hypertensive disorder 38 561431 I10 Cigarette smoker 1399737 7 F17.210 Continuous dependence on chewing tobacco 4518674701 19151 F17.220 Health Concerns Section Related Observation LastModified by Organization Detai ls LastModified Time None Recorded Concern Status LastModified by Organization Details LastModified Time None Recorded Advance Directives Directive None Recorded Payers Encounter Date Sequence Insurance Name Policy Number Policy Cantor Covered Member ID Cantor Member ID Guarantor Name 06/10/2024 1 [facility] ON OR AFTER 05/12/21 (MEDICAID REPLACEMENT - HMO) Ivis Pan [id number] Ivis Pan 07/08/2024 1 [facility] ON OR AFTER 05/12/21 (MEDICAID REPLACEMENT - HMO) Ivis Pan [id number] Ivis Pan 08/05/2024 1 [facility] ON OR AFTER 05/12/21 (MEDICAID REPLACEMENT - HMO) Ivis Pan [id number] Ivis Pan 08/26/2024 1 [facility] ON OR AFTER 05/12/21 (MEDICAID REPLACEMENT - HMO) Ivis Pan [id number] Ivis Pan 12/11/2024 1 [facility] ON OR AFTER 21 (MEDICAID REPLACEMENT - HMO) Ivis Perla [id number] Ivis Pan Notes Date Note Type Note Provider Name and Address Organization Details Recorded Time 06/10/2024 text/html . Patient return s for follow-up on tinea pedis. Patient has been on oral terbinafine he has not shown any significant reduction of his dry skin. Patient states he continues to have itching. I discussed the use of topical medications he states that he is using it but it is uncertain whether not he has using the triamcinolone or the ketoconazole. I discussed that he should use both as well as clean his feet with Hibiclens daily and I recommended a Betadine soak once daily. Patient states that he has never had this problem past. Patient may be reinfected himself with his shoe gear which I did explain he should wash his shoes and he returns with house slippers that are not clean in nature. Patient denies any other complaints. Juan Alberto Harris DPM [address], [address], [place], [address], [place]ark 06/10/2024 13:06:46 07/08/2024 text/html . Patient 74-year-old male who returns the office for follow-up on plantar foot scaling and itching. Patient continues to have scaling of the plantar foot with itching. Patient states he also develops this on his hands but does not have any current rashes. Patient states that the foot has improved somewhat with use of the topical ketoconazole but he states he continues have problems he continues wear nonsupportive shoe gear as well as wearing shoes that are dirty and make be causing reinfection which I have explained many times to obtain new shoe gear and perform daily foot hygiene. I also recommended dermatology referral due to chronic nature of foot condition. Juan Alberto Harris DPM [address], [address], [place], [address], [place] 07/10/2024 11:02:49 08/05/2024 text/html . Patient is a 74-year-old male who returns the office for follow-up on tinea pedis and severe dry skin. Patient overall is doing well he is slowly healing skin. Patient denies any other complaints he does continue to wear poor shoe gear. Juan Alberto Harris DPM [address], [facility] [address], [place], [address], [employer] [facility] Oscar 08/05/2024 14:50:12 08/26/2024 text/html Patient is a 74 year male who returns the office for follow-up on tinea pedis. Patient overall has had improvement he continues to wear poor shoe gear which I believe he is reinfected in his feet I have told him several times to discontinue wearing these shoes which are filthy. Patient presents with his son who also is told him. Juan Alberto Harris DPM [address], [facility] [address], [place], [address], [employer] [facility] Oscar 09/25/2024 09:31:47 12/11/2024 text/html Hospital fuv:Her e with son. Non-compliant pt, last visit in 05/05. S/p Lt sided weakness on 12/06/24 and he was seen in ED at [place] and was admitted there and had CTA and MRI and found to have Lt sided stroke. Pt has HTN and he was taking med from [facility] and he stopped it for last several months. In his meds today, there is no HTN med present and pt says he is taking BP med. C/o Lt sided weakness since this, denies any other issues. Good po intake. Chronic constipation +++. Ted Randall MD [address], [facility] [address], [place], [address], [employer] [facility] Oscar 12/11/2024 12:34:53
--- NOTE | 2024-12-18 05:12 | PC.NURSE ---
This RN went into pt room to draw blood. Pt daughter and son both state that pt isn't ready for blood, he is too weak . Pt family states that pt had blood cultures drawn last week and tubes drawn as well. Pt family is concerned about pt hemoglobin amount and that us drawing more blood will have him lose too much blood. Dr. Pedroza notified. Both Dr. Pedroza and this RN attempted to explain to pt and family that the human body has 5-6 L of blood and we would only be taking a small amount of that blood. Pt and family also told that these blood draws are very important to see what is going on with pt and that we are worried for possible sepsis or infection due to pt high temp and elevated HR RR and blood pressure. Pt and family were explained what each tube of blood was being tested for and how each one was important for the care of their father and himself. Pt and family made aware of the risks and possible if pt does not get proper treatment. Pt and family made aware that we are very concerned for pt health and would really like to have this work up done but also told them they have the right to refuse if so. Pt and family still state after all the explanations that they would like to hold off blood work due to pt not being ready for it . Pt family would like us to still swab pt for covid, flu, and RSV.
[2024-12-18 05:53] LABS: Add Urine Microscopic? NO; Appearance Urine Clear (Clear); Bilirubin Urine Negative (Negative); Blood Urine Negative (Negative); Color Urine Yellow (Yellow); Glucose Urine UA Trace mg/dL (Negative); Ketones Urine Negative (Negative); Leukocyte Esterase Ur Negative LEU/UL (Negative); Nitrate Urine Negative (Negative); Protein Urine Negative (Negative); Specific Grav Ur 1.011 (1.001-1.035); Urobilinogen Urine 0.2 mg/dL (<2.0); pH Urine 5.5 (5.0-9.0)
--- NOTE | 2024-12-18 05:53 | PC.NURSE ---
Dr. Pedroza verbally orders to give pt antibiotics without drawing blood cultures due to pt refusing blood work.
[2024-12-18] MEDS: AZITHROMYCIN 500 MG/NS 250 ML 500 MG/250 ML BAG 250 MG IVPB (06:19)
[2024-12-18] MEDS: BENZONATATE 100 MG CAPSULE PO (06:20)
[2024-12-18 06:30] LABS: Influenza A QL RT-PCR Positive (Negative); Influenza B QL RT-PCR Negative (Negative); RSV RNA, RT-PCR Negative (Negative); SARS-CoV-2 RNA PCR Negative (Negative)
--- NOTE | 2024-12-18 07:51 | PC.NURSE ---
this RN, caustic cresylate shift superintendent RN, and EDP all educated pt on the importance of staying in the in the hospital but the pt refused saying he want to go home. pt is A&Ox4
== END 2024-12-18 07:55 | disposition left against medical advice (07) ==
PROVIDERS: Emergency Provider Student in an Organized Health Care Education/Training Program; PCP Family Medicine
DX: J10.1 Influenza due to other identified influenza virus with other respiratory manifestations (principal); Z20.822 Contact with and (suspected) exposure to COVID-19; I10 Essential (primary) hypertension; J44.9 Chronic obstructive pulmonary disease, unspecified; F17.210 Nicotine dependence, cigarettes, uncomplicated; Z79.82 Long term (current) use of aspirin; Z79.02 Long term (current) use of antithrombotics/antiplatelets; R00.0 Tachycardia, unspecified; I51.7 Cardiomegaly
CPT/HCPCS: 71045; 81003; 87637; 93005; 94640; 96361; 96365; 96367; 99284; A9270; J0456; J0696; J7030

== ENCOUNTER 2024-12-18 13:58 | Inpatient (IN) | payer OTHER, SELFPAY ==
[2024-12-18] VITALS (25 sets, daily range): BP systolic 176–254; BP diastolic 62–95; PULSE 83–110; RESP 25–42; TEMP 36.8–39.6; O2SAT 96–100
--- NOTE | ~2024-12-18 | XR_ITS ---
EXAMINATION: XR barium swallow modified DATE: 12/19/2024 12:50 INDICATION: Dysphagia. Food getting stuck in throat. TECHNIQUE: The patient was given barium-containing material of multiple consistencies to swallow by t sandra speech pathologist while I performed fluoroscopy. Fluoroscopy exposure time was 0.8 minutes. The n umber of fluoroscopy images saved to the PACS was 1. Dose-area product was 0.555 Gy-cm^2. FINDINGS: There is no laryngeal penetration or aspiration. IMPRESSION: 1. No laryngeal penetration or aspiration. 2. Please refer to the speech therapy report for recommendations. Reviewed, dictated and finalized at location A. TECH
--- NOTE | ~2024-12-18 | XR_ITS ---
EXAMINATION: XR abdomen/kub 1V DATE: 12/24/2024 13:58 INDICATION: Abdominal pain. TECHNIQUE: A supine view of the abdomen on 2 radiographs was obtained. COMPARISON: CT 12/18/2024 FINDINGS: There are no dilated loops of bowel. There is a large volume of stool in the colon. IMPRESSION: 1. Nonobstructive bowel gas pattern. Reviewed, dictated and finalized at location A. PACKER
--- NOTE | ~2024-12-18 | CT_ITS ---
EXAMINATION: CT brain wo con DATE: 12/18/2024 16:43 INDICATION: Altered mental status. TECHNIQUE: Computed tomography (CT) of the head was performed without intravenous contrast. The mA wa s adjusted according to patient size. Iterative reconstruction technique was employed. The dose-lengt h product was 1286.33 mGy-cm. COMPARISON: Head CT 12/07/2024, 12/06/2024 FINDINGS: There are scattered areas of low attenuation in the cerebral white matter. There are old in farcts in the left thalamus and right basal ganglia. There is no intracranial hemorrhage, acute infar ction, or abnormal intracranial mass lesion. The ventricles are normal in size. The orbits are normal . There is mild mucosal thickening in the paranasal sinuses. The mastoid air cells are normal. IMPRESSION: 1. Old infarcts in the left thalamus and right basal ganglia. 2. Stable moderate nonspecific cerebral white matter disease, which likely represents chronic small v essel ischemic disease. Reviewed, dictated and finalized at location A. KLINE OPERATOR IMPRESSION: 1. Old infarcts in the left thalamus and right basal ganglia. 2. Stable moderate nonspecific cerebral white matter disease, which likely repr esents chronic small vessel ischemic disease.
--- NOTE | ~2024-12-18 | CT_ITS ---
EXAMINATION: CTA chest abdomen pelvis DATE: 12/18/2024 16:42 INDICATION: Shortness of breath. Hypertensive emergency. TECHNIQUE: Computed tomographic angiography (CTA) of the chest, abdomen, and pelvis was performed wit h 100 mL Omnipaque-350 intravenous contrast. Automated exposure control and iterative reconstruction technique were employed. The dose-length product was 455.44 mGy-cm. Maximum intensity projection 3D-r econstructions of the aorta and other arteries were constructed by the technologist on a separate wor kstation. COMPARISON: None. FINDINGS: CHEST CTA: There is mild scarring at the lung apices. There is moderate emphysema. There is mild atelectasis and scarring in the inferior lungs. No pleural effusion. There is mild mediastinal and bilateral hilar l ymphadenopathy. The heart size is normal. There are coronary artery calcifications. There is a trace pericardial effusion. There is wall thickening of the distal esophagus. There is mild thoracic spondy losis. ABDOMEN AND PELVIS CTA: The liver, gallbladder, spleen, pancreas, adrenal glands, and right kidney are normal. There is mild atrophy of left kidney. There is a right inguinal hernia containing fat. There are no dilated loops o f bowel. The appendix is normal. There is moderate stenosis of right renal artery and severe stenosis of left renal artery. There is severe stenosis of inferior mesenteric artery. There is mild lumbar s pondylosis. IMPRESSION: 1. Bilateral renal artery stenosis. Mild left kidney atrophy. 2. Moderate emphysema. 3. Wall thickening of the distal esophagus, likely esophagitis. 4. Mild mediastinal and bilateral hilar lymphadenopathy, likely reactive. Reviewed, dictated and finalized at location A. CTOR OF CORPORATE SPONSORSHIPS
--- NOTE | ~2024-12-18 | XR_ITS ---
CHEST RADIOGRAPH CLINICAL HISTORY: INFLUENZA, SOB, FEVER . COMPARISON: 12/18/2024 at 4:20 AM TECHNIQUE: Single portable view of the chest. FINDINGS The cardiomediastinal silhouette is unremarkable. Coarse interstitial lung markings are redemonstrated with platelike atelectasis/scarring in the left mid lung, unchanged. The remainder of the lungs are clear. IMPRESSION: Chronic interstitial change without focal infiltrate or effusion. Reviewed, dictated and finalized at location A. TUTOR
--- OUTSIDE RECORDS SUMMARY | 2024-12-18 14:01 | XMS_ITS | Referral Summary ---
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
--- OUTSIDE RECORDS SUMMARY | 2024-12-18 14:01 | XMS_ITS | Clinical Summary ---
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
--- NOTE | 2024-12-18 14:57 | ECG_ITS ---
Test Date: 2024-12-18 15:05:08 Measurements Intervals [place] Rate: 122 P: 76 CT: 128 QRS: 57 QRSD: 93 T: 90 QT: 268 QTc: 382 Interpretive Statements SINUS TACHYCARDIA LEFT VENTRICULAR HYPERTROPHY AND ST-T JAIMES BORDERLINE ST-T WAVE ABNORMALITY- INF/HIGH LAT LEADS BASELINE ARTIFACT- I, III, AVR, AVL, AVF, V1-V6 ABNORMAL ECG Compared to ECG 12/18/2024 05:16:52 HEART RATE HAS INCREASED Electronically Signed On 12-18-2024 15:39:06 SERVICE CAR DRIVER by Denilson Cisneros D.O.
[2024-12-18 15:17] LABS: Basophils Percent Auto 0.4 % (0.2-1.2); Eosinophils Percent Auto 0.1 % (0-4.4); Hematocrit 38.4 % (42.0-52.0); Hemoglobin 11.1 g/dL (14.0-18.0); Immature Granulocyte Absolute 0.07 K/mm3 (0.00-0.031); Immature Granulocyte Percent A 0.6 % (0-0.5); Immature Platelet Fraction Pct 2.6 % (0.9-11.2); Lymphocytes Absolute Auto 0.83 K/mm3 (0.9-3.2); Lymphocytes Percent Auto 7.5 % (18.3-44.2); Mean Corpuscular HGB Conc 28.9 g/dl (32-36); Mean Corpuscular Hemoglobin 16.8 pg (26-34); Mean Corpuscular Volume 58.3 fl (80-100); Mean Platelet Volume 9.5 fl (7.4-10.4); Monocytes Percent Auto 8.8 % (2.6-8.5); Neutrophils Absolute Auto 9.1 K/mm3 (1.3-6.7); Neutrophils Percent Auto 82.6 % (45.5-73.1); Platelet Count Result 252 k/mm3 (150-375); Red Blood Count 6.59 M/mm3 (4.6-6.20); Red Cell Distribution Width 19.4 % (11.5-14.5); White Blood Count 11.1 K/mm3 (4.5-10.0)
[2024-12-18 15:24] LABS: Lactic Acid Reflex 2.8 mmol/L (0.7-2.0)
[2024-12-18 15:27] LABS: Alanine Aminotransferase 26 U/L (6-50); Albumin Level 4.6 g/dL (3.5-5.1); Alkaline Phosphatase 105 U/L (38-126); Anion Gap 14 mmol/L (4-12); Aspartate Amino Transferase 55 U/L (17-59); Bilirubin,Total 0.7 mg/dL (0.2-1.3); Blood Urea Nitrogen 17 mg/dL (9-20); Calcium 9.7 mg/dL (8.4-10.2); Carbon Dioxide 22 mmol/L (22-30); Chloride 98 mmol/L (98-107); Estimated Glomerular Filt Rate 56; Glucose 81 mg/dL (65-110); Potassium 3.9 mmol/L (3.4-5.0); Sodium 134 mmol/L (137-145)
--- OUTSIDE RECORDS SUMMARY | 2024-12-18 15:27 | XMS_ITS | Referral Summary ---
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
--- OUTSIDE RECORDS SUMMARY | 2024-12-18 15:27 | XMS_ITS | Clinical Summary ---
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
[2024-12-18 15:41] LABS: Hypochromasia 1+; Platelet Estimate Adequate (Adequate); Schistocytes None Seen; Target Cells 1+
[2024-12-18] MEDS: hydrALAZINE HCL 20 MG/ML VIAL 10 MG IV PUSH ×2 (15:41→20:17)
[2024-12-18] MEDS: ACETAMINOPHEN 500 MG TABLET 1000 MG PO (15:41)
[2024-12-18 15:42] LABS: Anisocytosis 1+
--- NOTE | 2024-12-18 15:48 | ED_ITS ---
HPI - SOB/Dyspnea General Chief Complaint: Shortness of Breath/Dyspnea Stated Complaint: Flu positive, discharged yesterday from [facility] Time Seen by Provider: 12/18/24 15:12 History of Present Illness HPI Narrative: 74-year-old male with a past medical history including COPD, uncontrolled hypertension, chronic smoker, recent stroke with some residual left-sided deficits. patient presents to the emergency department for repeat evaluation. He was seen earlier this morning approximately 4 in the morning, diagnosed with influenza but refused to obtain any blood work for further evaluation and left against medical advice despite patient appearing very unwell with concerning vital signs. Patient and family signed AMA paperwork and he left at that time. He returns today several hours later with worsening respiratory status, hypertension, tachycardia, fever, tachypnea. Patient is presently ill and in acute distress, made a medical resuscitation and brought back in room 6, IV access was established by nursing staff, respiratory therapy called to bedside, translation contact lens lathe operator services were used to speak patient's language and family at bedside to assist. patient is a very poor historian despite translation services as well as family being poor historians and not able to provide salient details. They informed me that patient has been taking his medications including aspirin Plavix, hydrochlorothiazide losartan for blood pressure and albuterol nebulizer for his COPD but still remains dyspneic. Related Data Allergies Allergy/AdvReac Type Severity Reaction Status Date / Time No Known Allergies Allergy Verified 12/06/24 17:03 Review of Systems 2 Review of Systems: as reviewed above in HPI, limited secondary to language barrier [facility] Past Medical History Medical History Cigarette smoker Essential hypertension COPD (chronic obstructive pulmonary disease) Family History Family History Sibling Heart valve problem Mother Coarse tremors Father Hypertension Social History Social History Social History: Lives with daughter's family. Full code. Smokes 3-4 cigarettes per day. No alcohol or recreational drug use. Smoking status: Current every day smoker Tobacco type: cigarettes Alcohol intake: never Substance use: never Do You Feel Safe in your Home?: Yes Lack of Transportation: No Lack of Food: Never True Current Housing: I Have Housing Concerned About Future Housing: No Difficulty Paying Gas/Electric Bills: No Difficulty Paying for Meds: No Currently Unemployed: No Education: Grade School Difficulty w/ Childcare or Family Care: No Living arrangements: with family Occupation/Education: retired Spiritual care concerns: No Exam 2 Narrative: GENERAL: ill-appearing in moderate to severe respiratory distress, tachypneic in the 40s to 50s HEAD: [Normocephalic, atraumatic.] EYES: [PERRLA and EOMI.] ENT: Nares clear, no rhinorrhea or epistaxis. Mucous membranes dry. NECK: Supple. CHEST: coarse breath sounds with asymmetry to the left, clear breath sounds on the right side, tachypneic in the 40s to 50s, coughing frequently, respiratory distress noted. Belly breathing. HEART: [Regular rate and rhythm]. No murmur heard. [Normal peripheral pulses.] ABDOMEN: [Soft, nondistended], [nontender], [No rigidity or guarding] EXTREMITIES: Normal range of motion. [No edema.] SKIN: Warm, dry, no rash. NEURO: Left-sided mild loss of nasal labial fold with protrusion of the tongue, chronic per review of patient's EMR, alert oriented, answers questions, no new or obviousmotor deficits appreciated. full neurological examination is limited secondary to patient participation at this time secondary to his distress. Course Vital Signs Vital signs: Vital Signs Temperature 39.0 C H 12/18/24 14:19 Pulse Rate 110 H 12/18/24 14:19 Respiratory Rate 25 H 12/18/24 14:19 Blood Pressure 254/72 H 12/18/24 14:19 Pulse Oximetry 98 12/18/24 14:19 Oxygen Delivery Room Air 12/18/24 14:19 Temperature 38.6 C H 12/18/24 18:40 Pulse Rate 103 H 12/18/24 22:02 Respiratory Rate 40 H 12/18/24 22:02 Blood Pressure 186/73 H 12/18/24 19:07 Pulse Oximetry 99 12/18/24 19:07 Oxygen Delivery BiPAP 12/18/24 18:12 MDM - SOB/Dyspnea MDM Narrative Medical decision making narrative: 74-year-old male with chronic COPD, chronic smoking, recent stroke several weeks ago currently on dual antiplatelet therapy. He has uncontrolled hypertension. Recently diagnosed with influenza A but refused full workup here in the emergency department 12 hours prior to arrival. Returns in severe respiratory distress, tachypneic in the 30s to 50s depending on position. Hypertensive the 250s to 260 systolic, tachycardic in the 110, febrile at 39? C. patient now consented for evaluation and IV establishment and blood draw. Flute Polisher was used for interpretive services as well as family for collateral formation. Patient appears in marked respiratory distress but wishes to be full code in the event of respiratory or cardiac arrest. Respiratory therapy called to bedside to initiate BiPAP therapy. Two large-bore IVs were established peripherally, bedside echocardiogram was conducted which shows hyperdynamic ejection fraction, collapsed right ventricle and collapsible IVC, mild pericardial effusion is noted with left ventricular hypertrophy appreciable. No appreciable fluid on the bilateral lungs, lung sliding appreciated bilaterally. patient is very ill appearing and possibly septic. He is dehydrated with dry mucous membranes, tachycardic and febrile. He was provided Tylenol which she took orally. Given his marked hypertension concern presently for hypertensive emergency, pulmonary edema from sympathetic crashing, acute stroke, aortic process, ACS, pneumonia, sepsis, consequence of influenza. he appears to have collapsible IVC and given his picture concerning for sepsis he was given a 30 cc/kg bolus of fluids of approximately 2 L, Tylenol was already provided, started on vancomycin and cefepime. He was given a small dose of hydralazine and nitro was ordered to start if his systolic remains above 210 to obtain a 20% reduction in his systolic given the severe range hypertension which could be contributing to his respiratory distress. CT of the head and CT angiography of the chest and abdomen pelvis was ordered in addition to broad laboratory assessments with VBG, lactic acid, blood cultures. patient and family members seemed to verbalize understanding of what is going on at this time and his uncertainty and diagnosis and prognosis. Did agree that patient wishes to be full code at this time. EKG was obtained which shows diffuse ST segment depressions at a potential AVR elevation. I immediately called and spoke to the interventional cardiology team at 3:21 p.m. and relayed the EKG to them. They looked at the current EKG and previous EKGs and he had similar findings previously but given the acute strain from the hypertension and potential sepsis could be causing a type 2 myocardial injury. Patient states he has no known history of cardiac disease or coronary disease confirmed by family. Recommendations from Cardiology will to trend troponins and obtain echocardiogram. He does have a mild pericardial effusion which could be signs of pericarditis in the appropriate clinical setting. consult was placed in the EMR. Patient's workup shows a slight leukocytosis of 11.1, hemoglobin 11.1, platelets of 252. VBG shows pH is 7.46, pCO2 of 31.6, VBG of bicarb 22.3 indicative of acute respiratory alkalosis, likely secondary to his tachypnea. No signs of acidosis. Electrolyte panel shows largely unremarkable findings, normal creatinine slightly elevated from his levels several weeks ago. Lactic acidosis of 2.8 which down trended to 1.1 after appropriate fluid resuscitation. Normal glucose. Normal LFTs. Troponin markedly elevated 0.658, 3 hour troponin without any significant elevation at 0.665. Likely secondary to type 2 AR from his uncontrolled hypertension and acute infection. Urine from this morning shows no signs of infection. tested positive for influenza this morning. CT angiography of his chest abdomen pelvis shows bilateral renal artery stenosis likely the source of his uncontrolled hypertension but no acute process aside from some esophagitis. Head CT shows old infarcts and stable non- specific white matter disease. Repeat EKG after clinical improvement on BiPAP in fluid shows significant oval improvement his massive ST depressions, AVR no longer significant elevated, congruent with patient's likely demand ischemic changes. patient was re-evaluated frequently and after the small bolus hydralazine to not actually need any nitroglycerin infusion. This was discontinued. His blood pressure came down approximately 20% with significant improvement his respiratory efforts. No longer tachypneic in the 30 to 40s, no resting comfortably on the BiPAP pulling good tidal volumes. He did receive Tylenol for his fever. Septic protocol is being followed this time although suspicion that he has influenza and likely no other bacterial source will obtain blood cultures and re-evaluate from there. Given patient's marked clinical improvement and no longer being in respiratory physical distress he can be admitted to the hospital safely at this time to a step-down unit. I discussed the case with the MLP currently covering the hospitalist team clear. We went over patient's imaging studies, clinical assessment, plan of care with cardiology on board. She accepted the patient to admit to the hospital at this time. Patient and family were made aware of this plan of care and agreeable to admission at this time. Medical Records Attestation: I reviewed the patient's medical records. Lab Data Attestation: I reviewed the patient's lab results. 12/18/24 15:08 12/18/24 15:08 Labs: Lab Results 12/18/24 12/18/24 12/18/24 Range/Units 15:07 15:08 15:57 WBC 11.1 H (4.5-10.0) K/mm3 RBC 6.59 H (4.6-6.20) M/mm3 Hgb 11.1 L (14.0-18.0) g/dL Hct 38.4 L (42.0-52.0) % MCV 58.3 L (80-100) fl MCH 16.8 L (26-34) pg MCHC 28.9 L (32-36) g/dl RDW 19.4 H (11.5-14.5) % Plt Count 252 (150-375) k/mm3 MPV 9.5 (7.4-10.4) fl Immature Gran % (Auto) 0.6 H (0-0.5) % Neut % (Auto) 82.6 H (45.5-73.1) % Lymph % (Auto) 7.5 L (18.3-44.2) % [place] % (Auto) 8.8 H (2.6-8.5) % Eos % (Auto) 0.1 (0-4.4) % Baso % (Auto) 0.4 (0.2-1.2) % Lymph # (Auto) 0.83 L (0.9-3.2) K/mm3 [place] # (Auto) 1.0 H (0.1-0.6) K/mm3 Eos # (Auto) 0.0 (0-0.3) K/mm3 Baso # (Auto) 0.0 (0.0-0.1) K/mm3 Abs Immat Gran (auto) 0.07 H (0.00-0.031) K/mm3 Absolute Neuts (auto) 9.1 H (1.3-6.7) K/mm3 Absolute Nucleated RBC 0.000 (0.0-0.012) K/mm3 Nucleated RBC % 0.0 (0.0-0.2) % Platelet Estimate Adequate (Adequate) % Immature Plt Fraction 2.6 (0.9-11.2) % Hypochromasia 1+ Anisocytosis 1+ Target Cells 1+ Schistocytes None seen Expiratory Pressure 6 CMH2O Inspiratory Pressure 12 CMH2O Sodium 134 L (137-145) mmol/L Potassium 3.9 (3.4-5.0) mmol/L Chloride 98 (98-107) mmol/L Carbon Dioxide 22 (22-30) mmol/L Anion Gap 14 H (4-12) mmol/L BUN 17 (9-20) mg/dL Creatinine 1.27 (0.7-1.3) mg/dL Estim Creat Clear Calc Not Reportable Estimated GFR 56 L (59 - ) Glucose 81 (65-110) mg/dL Lactic Acid 2.8 H (0.7-2.0) mmol/L Calcium 9.7 (8.4-10.2) mg/dL Total Bilirubin 0.7 (0.2-1.3) mg/dL AST 55 (17-59) U/L ALT 26 (6-50) U/L Alkaline Phosphatase 105 (38-126) U/L Troponin I 0.658 H* (0.000-0.034) ng/mL Total Protein 8.0 (6.3-8.2) g/dL Albumin 4.6 (3.5-5.1) g/dL TSH (Reflex) 3.120 (0.465-4.68) uIU/mL Nasal MRSA (PCR) (NOT DETECTE) 12/18/24 12/18/24 Range/Units 17:25 18:34 WBC (4.5-10.0) K/mm3 RBC (4.6-6.20) M/mm3 Hgb (14.0-18.0) g/dL Hct (42.0-52.0) % MCV (80-100) fl MCH (26-34) pg MCHC (32-36) g/dl RDW (11.5-14.5) % Plt Count (150-375) k/mm3 MPV (7.4-10.4) fl Immature Gran % (Auto) (0-0.5) % Neut % (Auto) (45.5-73.1) % Lymph % (Auto) (18.3-44.2) % [place] % (Auto) (2.6-8.5) % Eos % (Auto) (0-4.4) % Baso % (Auto) (0.2-1.2) % Lymph # (Auto) (0.9-3.2) K/mm3 [place] # (Auto) (0.1-0.6) K/mm3 Eos # (Auto) (0-0.3) K/mm3 Baso # (Auto) (0.0-0.1) K/mm3 Abs Immat Gran (auto) (0.00-0.031) K/mm3 Absolute Neuts (auto) (1.3-6.7) K/mm3 Absolute Nucleated RBC (0.0-0.012) K/mm3 Nucleated RBC % (0.0-0.2) % Platelet Estimate (Adequate) % Immature Plt Fraction (0.9-11.2) % Hypochromasia Anisocytosis Target Cells Schistocytes Expiratory Pressure CMH2O Inspiratory Pressure CMH2O Sodium (137-145) mmol/L Potassium (3.4-5.0) mmol/L Chloride (98-107) mmol/L Carbon Dioxide (22-30) mmol/L Anion Gap (4-12) mmol/L BUN (9-20) mg/dL Creatinine (0.7-1.3) mg/dL Estim Creat Clear Calc Estimated GFR (59 - ) Glucose (65-110) mg/dL Lactic Acid 1.1 (0.7-2.0) mmol/L Calcium (8.4-10.2) mg/dL Total Bilirubin (0.2-1.3) mg/dL AST (17-59) U/L ALT (6-50) U/L Alkaline Phosphatase (38-126) U/L Troponin I 0.665 H* (0.000-0.034) ng/mL Total Protein (6.3-8.2) g/dL Albumin (3.5-5.1) g/dL TSH (Reflex) (0.465-4.68) uIU/mL Nasal MRSA (PCR) Not detected (NOT DETECTE) ABG Data ABG results: 12/18/24 15:57 VBG pH 7.467 H* VBG pCO2 31.6 L VBG pO2 40.4 VBG HCO3 22.3 L O2 Delivery Device Non-invasive vent O2 Liters/Min Not Reportable Vent Rate 14 FiO2 50 Imaging Data Attestation: I personally reviewed and interpreted this imaging study as follows: My impression: Impressions Chest X-Ray 12/18/24 15:26 IMPRESSION: Chronic interstitial change without focal infiltrate or effusion. Head CT 12/18/24 16:44 IMPRESSION: 1. Old infarcts in the left thalamus and right basal ganglia. 2. Stable moderate nonspecific cerebral white matter disease, which likely represents chronic small vessel ischemic disease. Chest/Abdomen/Pelvis CTA 12/18/24 16:46 IMPRESSION: 1. Bilateral renal artery stenosis. Mild left kidney atrophy. 2. Moderate emphysema. 3. Wall thickening of the distal esophagus, likely esophagitis. 4. Mild mediastinal and bilateral hilar lymphadenopathy, likely reactive. Critical Care Time Critical Care Time Critical Care Time: Yes Total Critical Care Time: 120 Discharge Plan Discharge Clinical Impression: Respiratory distress, Sepsis, Hypertensive emergency without congestive heart failure, Influenza A, Respiratory failure, [id number] Patient Disposition: Still a Patient Condition: Guarded Prognosis Time of Disposition: 20:15
[2024-12-18 16:01] LABS: Device NON-INVASIVE VENT; Fractional Inspired Oxygen 50 %; HCO3 VBG 22.3 mEq/l (24.0-30.0); PCO2 VBG 31.6 mmHg (42.0-48.0); PO2 VBG 40.4 mmHg (35.0-45.0); pH VBG 7.467 (7.300-7.400)
[2024-12-18 16:02] LABS: Non-Invasive Expiratory Pressure 6 CMH2O; Non-Invasive Inspiratory Pressure 12 CMH2O; Non-Invasive Vent Rate 14 /MIN
[2024-12-18] MEDS: LACTATED RINGERS 2,000 ML 999 ML (16:03)
[2024-12-18] MEDS: CEFEPIME 2 GM/NS 50 ML 2 GM/50 ML BAG IVPB (16:05)
[2024-12-18 16:28] LABS: Troponin I 0.658 ng/mL (0.000-0.034)
[2024-12-18] MEDS: VANCOMYCIN 1,250 MG/NS 250 ML 1,250 MG/250 ML BAG 166.67 MG IVPB (17:00)
[2024-12-18 18:12] LABS: Reflex Lactic Acid Yes or No Add Lactic
--- NOTE | 2024-12-18 18:16 | ECG_ITS ---
Test Date: 2024-12-18 18:30:56 Measurements Intervals [place] Rate: 94 P: 84 MD: 162 QRS: 63 QRSD: 94 T: 88 QT: 369 QTc: 462 Interpretive Statements SINUS RHYTHM LEFT VENTRICULAR HYPERTROPHY WITH ST-T CHANGE BORDERLINE ST-T WAVE ABNORMALITY- INF/HIGH LAT LEADS BORDERLINE ECG Compared to ECG 12/18/2024 15:05:08 HEART RATE HAS DECREASED Electronically Signed On 12-18-2024 19:34:14 [employer]UN[employer] MACHINE MECHANIC by Denilson Cisneros D.O.
[2024-12-18 18:42] LABS: MRSA (PCR) NOT DETECTED (NOT DETECTE)
[2024-12-18 18:55] LABS: Lactic Acid 1.1 mmol/L (0.7-2.0)
[2024-12-18 19:30] LABS: Troponin I 0.665 ng/mL (0.000-0.034)
[2024-12-18] MEDS: LACTATED RINGERS 1,000 ML 125 ML IV CONT (20:17)
[2024-12-18] MEDS: OSELTAMIVIR PHOSPHATE 30 MG CAPSULE PO (20:17)
[2024-12-18] MEDS: FAMOTIDINE 20 MG/2 ML VIAL IV PUSH (21:45)
[2024-12-18] MEDS: ENALAPRILAT 1.25 MG/ML VIAL 2.5 MG IV PUSH (21:45)
[2024-12-18] MEDS: LEVALBUTEROL NEB 1.25 MG/3 ML 0.63 MG INHALATION (21:55)
[2024-12-18] MEDS: IPRATROPIUM BR 0.02% INH SOLN 0.5 MG/2.5 ML VIAL INHALATION (21:55)
--- NOTE | 2024-12-18 22:21 | P.HP_ITS ---
H&P: HPI History of Present Illness Date/Time: 12/18/24 22:21 Chief Complaint: Shortness of breath and wheezing Narrative: 74-year-old male presenting to [facility] accompanied by his daughter who he lives with. 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 He was recently discharged on 12/07/2024 diagnosed with CVA with left hemiparesis and slurred speech. He returned on the morning of 12/18/2024 with the aforementioned symptoms however signed out AMA from the ER after being found positive for influenza. He then returned on 12/18/2024 and then afternoon again due to feeling unwell. ER evaluation demonstrates hypertension, documented fever up to 103.2 ? F, tachypnea, tachycardia, WBC 11.1, hemoglobin 11.1, VBG pH 7.4, pCO2 31.6, bicarb 22.3, lactic acid 2.8, troponin 0.658, nasal MRSA PCR negative, influenza A positive detected earlier in the morning. Patient is a poor historian. Lives with his daughter who he elected in the ER to his medical decision maker. Patient received DuoNeb treatments, necessitated BiPAP for work of breathing. This did improve his symptomatology. Cardiology was contacted from the ER for elevated troponin and they recommended to continue to trend out. He also received Tylenol, azithromycin, cefepime, Pepcid, hydralazine, lactated Ringer bolus, Tamiflu, vancomycin. Chest abdomen pelvis CTA demonstrates bilateral renal artery stenosis with mild left kidney atrophy, moderate emphysema, wall thickening of the distal esophagus, mild mediastinal bilateral hilar lymphadenopathy. Review of Systems Review of Systems: All systems reviewed & are unremarkable except as noted in HPI and below (HPI) [facility] Past Medical History Medical History Cigarette smoker Essential hypertension COPD (chronic obstructive pulmonary disease) Family History Family History Sibling Heart valve problem Mother Coarse tremors Father Hypertension Social History Social History Social History: Lives with daughter's family. Full code. Smokes 3-4 cigarettes per day. No alcohol or recreational drug use. Smoking status: Current every day smoker Tobacco type: cigarettes Alcohol intake: never Substance use: never Do You Feel Safe in your Home?: Yes Lack of Transportation: No Lack of Food: Never True Current Housing: I Have Housing Concerned About Future Housing: No Difficulty Paying Gas/Electric Bills: No Difficulty Paying for Meds: No Currently Unemployed: No Education: Grade School Difficulty w/ Childcare or Family Care: No Living arrangements: with family Occupation/Education: retired Spiritual care concerns: No Meds Home Medications and Allergies Home Medications ?Medication ?Instructions ?Recorded ?Confirmed ?Type albuterol sulfate 90 mcg/actuation 2 puff inhalation Q6H PRN 12/07/24 12/07/24 Rx aerosol inhaler shortness of breath or wheezing #1 g aspirin 81 mg tablet,delayed 81 mg PO QAM #30 tabs 12/07/24 Rx release atorvastatin 40 mg tablet 40 mg PO DAILY #30 tabs 12/07/24 Rx budesonide-formoterol HFA 160 2 puff inhalation BID #1 g 12/07/24 12/07/24 Rx mcg-4.5 mcg/actuation aerosol inhaler (Symbicort) clopidogrel 75 mg tablet 75 mg PO QAM #30 tabs 12/07/24 Rx telmisartan 40 1 tablet PO DAILY #30 tabs 12/07/24 Rx mg-hydrochlorothiazide 12.5 mg tablet acetaminophen 500 mg capsule 1,000 mg (2 x 500 mg) PO Q6H PRN 12/18/24 Rx pain #30 caps albuterol sulfate 90 mcg/actuation 1 inh inhalation QID PRN shortness 12/18/24 Rx aerosol inhaler of breath or wheezing #6.7 grams benzonatate 100 mg capsule 100 mg PO BID PRN cough #20 caps 12/18/24 Rx ibuprofen 600 mg tablet 600 mg PO TID PRN pain #30 tabs 12/18/24 Rx Allergies Allergy/AdvReac Type Severity Reaction Status Date / Time No Known Allergies Allergy Verified 12/06/24 17:03 Vital Signs Vital Signs - 24 hr 12/18/24 14:19 12/18/24 14:57 12/18/24 16:01 Temperature 102.2 F H 103.2 F H Pulse Rate 110 H Respiratory Rate 25 H Blood Pressure 254/72 H Pulse Oximetry 98 98 Oxygen Delivery Room Air BiPAP 12/18/24 16:02 12/18/24 16:04 12/18/24 16:11 Temperature Pulse Rate 103 H 102 H 97 Respiratory Rate 42 H 36 H Blood Pressure 204/68 H Pulse Oximetry 100 99 Oxygen Delivery BiPAP 12/18/24 16:11 12/18/24 16:12 12/18/24 16:15 Temperature 101.8 F H Pulse Rate 98 96 Respiratory Rate 37 H 34 H Blood Pressure 204/68 H 193/62 H Pulse Oximetry 100 100 Oxygen Delivery 12/18/24 16:43 12/18/24 16:47 12/18/24 16:50 Temperature Pulse Rate 104 H Respiratory Rate 32 H Blood Pressure 184/65 H 204/76 H Pulse Oximetry 96 Oxygen Delivery BiPAP 12/18/24 17:07 12/18/24 17:21 12/18/24 17:50 Temperature 101.8 F H Pulse Rate 102 H 105 H Respiratory Rate 33 H 35 H Blood Pressure 207/95 H 202/72 H 186/73 H Pulse Oximetry 96 97 Oxygen Delivery 12/18/24 18:00 12/18/24 18:10 12/18/24 18:12 Temperature Pulse Rate 92 Respiratory Rate 34 H Blood Pressure 204/66 H 201/63 H Pulse Oximetry 98 Oxygen Delivery BiPAP 12/18/24 18:20 12/18/24 18:30 12/18/24 18:40 Temperature 101.4 F H Pulse Rate 91 Respiratory Rate 30 H Blood Pressure 176/88 H 203/80 H 191/63 H Pulse Oximetry 99 Oxygen Delivery 12/18/24 19:07 12/18/24 21:55 12/18/24 22:02 Temperature Pulse Rate 83 104 H 103 H Respiratory Rate 28 H 38 H 40 H Blood Pressure 186/73 H Pulse Oximetry 99 Oxygen Delivery Exam Const: General: comfortable and no acute distress Eyes: Pupils: Equal, round and reactive pupils present Neck: Neck: supple Resp: Other: Slight expiratory wheeze Cardio: Rate: regular rate Rhythm: regular rhythm GI: GI Palp: Yes Soft to palpation and No Tenderness to palpation present (GI) Neuro: Other: Gait exam deferred. Moves all 4 extremities spontaneously, 5/5 strength x4 H&P: Results Labs Labs: Short CBC 12/18/24 Range/Units 15:08 WBC 11.1 H (4.5-10.0) K/mm3 Hgb 11.1 L (14.0-18.0) g/dL Hct 38.4 L (42.0-52.0) % Plt Count 252 (150-375) k/mm3 BMP 12/18/24 15:08 Sodium 134 L Potassium 3.9 Chloride 98 Carbon Dioxide 22 BUN 17 Creatinine 1.27 Glucose 81 Calcium 9.7 Cardiac Enzymes 12/18/24 12/18/24 Range/Units 15:07 18:34 Troponin I 0.658 H* 0.665 H* (0.000-0.034) ng/mL Liver Function 12/18/24 Range/Units 15:08 Total Bilirubin 0.7 (0.2-1.3) mg/dL AST 55 (17-59) U/L ALT 26 (6-50) U/L Alkaline Phosphatase 105 (38-126) U/L Albumin 4.6 (3.5-5.1) g/dL Assessment and Plan Assessment and plan (1) Influenza A: Code(s): J10.1 - Influenza due to other identified influenza virus with other respiratory manifestations Status: Acute (2) Cigarette smoker: Code(s): F17.210 - Nicotine dependence, cigarettes, uncomplicated Status: Acute (3) Hypertensive urgency: Code(s): I16.0 - Hypertensive urgency Status: Acute (4) Elevated troponin: Code(s): R79.89 - Other specified abnormal findings of blood chemistry Status: Acute (5) Lactic acidosis: Code(s): E87.20 - Acidosis, unspecified Status: Acute (6) Sepsis: Code(s): A41.9 - Sepsis, unspecified organism Status: Acute (7) Transient alteration of awareness: Code(s): R40.4 - Transient alteration of awareness Status: Acute (8) Respiratory distress: Code(s): R06.03 - Acute respiratory distress Status: Acute Plan Influenza a -Tamiflu 30 mg p.o. b.i.d. has been started. Continue Acute COPD exacerbation -patient does well on BiPAP. Attempted to remove and the patient did well transiently on 10 L high-flow nasal cannula. Placed back on BiPAP for increased work of breathing and wheezing. Continue DuoNebs p.r.n. start Solu-Medrol 60 mg IV q.8 hour Hypertensive urgency -bilateral renal artery stenosis with mild left kidney atrophy identified on CTA abdomen pelvis. Cozaar 100 mg p.o. q.day is been scheduled to start on 12/19/2024. Patient receiving p.r.n. hydralazine however to no effect. Giving enalaprilat 2.5 mg IV x1 which should work better. Will continue to re-dose. -follow-up with vascular surgery in the outpatient setting for further evaluation Active tobacco abuse -counseling provided. Severe sepsis present on admission with evidence of end-organ damage as evidenced by encephalopathy/transient alteration in awareness -tachycardia, tachypnea, confusion, leukocytosis, respiratory distress, lactic acidosis 2.8 on admission. Likely are related to influenza a -lactic acidosis resolved. No hypotension. Treat hypertension. Since admission patient has not had any further evidence of confusion. -received fluid resuscitation on admission. Continue lactated Ringer's at 125 cc/hour. Bedside echocardiogram demonstrates collapse right ventricle and col lapsible IVC. -prophylactic vancomycin, cefepime, azithromycin have been started. Reassess use of these in the morning. Check nasal MRSA PCR. Blood cultures pending. Sputum cultures pending. Leukocytosis -mild. Continue to trend Elevated troponin -flat. Continue to trend. EKG unchanged from prior. This was evaluated by Cardiology as consulted in the ER. Awaiting official recommendations. Patient denies chest pain. Esophagitis -famotidine IV started. 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 Currently has no symptoms. Continue to monitor. 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 MRI demonstrated right thalamus and internal capsule stroke. 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 Daughter reports he is being referred by PCP to vascular surgery. The patient is vehemently refusing blood draws. Discussed with daughter at bedside with the patient is allowing to be his medical decision maker currently. The daughter is in line with the patient they have elected to forego any further blood draws tonight. We discussed the importance of serial monitoring and although they understood they do not want to have any blood drawn in till the morning and in fact may even refuse at that time. We discussed the risk of delaying evaluation including the risk of morbidity and . They understood and agreed to proceed. They wish for the patient to be full code. SCDs. Hospitalist MIPS Advance Care Plan I have confirmed that the patient's Advanced Care Plan is present, code status is documented, or surrogate decision maker is listed in patient medical record.: Yes Medication Reconciliation I have utilized all available resources to obtain, update and review the patients current medications (includes all prescriptions, OTC, herbals, cannabis, and nutritional supplements).: Yes
[2024-12-19] VITALS (33 sets, daily range): BP systolic 127–226; BP diastolic 53–83; PULSE 70–116; RESP 16–45; TEMP 36.4–38.9; O2SAT 95–100; BMI 17.3
--- NOTE | 2024-12-19 | ECHO_ITS ---
Patient Info Name: Ivis Perla Age: 74 years : 1950 Gender: Male Ht: 68 in Wt: 115 lbs BSA: 1.57 m2 HR: 83 bpm BP: 162 / 64 mmHg Heart Rhythm: Sinus Rhythm Technical Quality: Fair Exam Date: 12/19/2024 10:43 AM Exam Location: Echo Lab Patient Status: Inpatient Admit Date: 12/18/2024 Staff Ordering Physician: Demetrius Mora MD Raw Stock Drier Tender: Zhang Padilla RDCS Attending Provider: Shanell Hunter MD Referring Physician: Abby JOHNSTON; Exam Type: CA echo doppler color flow Study Info Indications - NSTEMI Complete two-dimensional, color flow and Doppler transthoracic echocardiogram is performed. Summary 1. Left ventricular chamber dimension is normal. 2. Left ventricular systolic function is normal, estimated at >70%. 3. There is moderately increased left ventricular wall thickness. 4. The left ventricular diastolic function is grade I diastolic dysfunction. 5. Right ventricular systolic function is normal. 6. There is mild aortic valve regurgitation. Left Ventricle Left ventricular chamber dimension is normal. Left ventricular systolic function is normal, estimated at >70%. There is moderately increased left ventricular wall thickness. The left ventricular diastolic function is grade I diastolic dysfunction. Right Ventricle Right ventricular chamber dimension is normal. Right ventricular systolic function is normal. Left Atria Left atrial chamber dimension is normal. Right Atria Right atrial chamber dimension is normal. Atrial Septum Intact interatrial septum visualized by color flow imaging. Aortic Valve The aortic valve is not well visualized. There is no aortic valve stenosis. There is mild aortic valve regurgitation. Pulmonic Valve The pulmonic valve is not well visualized. Mitral Valve There is trace mitral valve regurgitation. Tricuspid Valve There is trace tricuspid valve regurgitation. Pericardium/Pleural There is no pericardial effusion. Inferior Vena Cava Normal inferior vena cava with >50% collapse upon inspiration consistent with normal right atrial pressure, 3 mmHg. Aorta The aortic root size at the sinus of Valsalva is normal. Left Ventricular Outflow Tract Name Value Normal LVOT 2D LVOT Diameter 1.8 cm LVOT Doppler LVOT Peak Gradient 5 mmHg LVOT Mean Gradient 2 mmHg LVOT VTI 24 cm LVOT VTI/AV VTI Ratio 0.8 LVOT Stroke Volume 57 ml LVOT CO 4.7 l/min LVOT CI 3.0 l/min/m2 Pulmonic Valve Name Value Normal RVOT Doppler RVOT Peak Gradient 3 mmHg PV Doppler PV Peak Gradient 5 mmHg Mitral Valve Name Value Normal MV Doppler MV Decel Baca 955 cm/s2 MV PHT 20 ms MV Area (PHT) 10.9 cm2 4.0-5.0 MV Diastolic Function MV E Peak Velocity 67 cm/s MV A Peak Velocity 119 cm/s MV E/A 0.6 MV Decel Time 70 ms MV Annular TDI MV E/e' (Septal) 9.6 <=8.0 MV E/e' (Lateral) 9.8 <=8.0 MV E/e' (Average) 9.7 Tricuspid Valve Name Value Normal Estimated PAP/RSVP RA Pressure 3 mmHg <=5 Aorta Name Value Normal Ascending Aorta Ao Root Diameter (MM) 3.1 cm Ao Root Diam Index (MM) 2.0 cm/m2 Aortic Valve Name Value Normal AV Doppler AV Peak Velocity 152 cm/s AV Peak Gradient 9 mmHg AV Mean Gradient 5 mmHg AV VTI 30 cm AV Area (Cont Eq VTI) 1.9 cm2 >=3.0 AV Area (Cont Eq Emil) 1.7 cm2 AV Regurgitation 2D LVOT Area 2.4 cm2 Ventricles Name Value Normal LV Dimensions 2D/MM IVS Diastolic Thickness (2D) 1.6 cm 0.6-1.0 LVID Diastole (2D) 4.3 cm 4.2-5.8 LVIW Diastolic Thickness (2D) 1.1 cm 0.6-1.0 LVID Systole (2D) 3.1 cm 2.5-4.0 LVOT Diameter 1.8 cm LV Mass (2D Cubed) 222.84 g 88.00-224.00 LV Mass Index (2D Cubed) 142 g/m2 49-115 Relative Wall Thickness (2D) 0.52 LV Fractional Shortening/Ejection Fraction 2D/MM LV Fractional Shortening (2D) 27 % 25-43 LV EF (2D Teicholz) 53 % 52-72 LV Diastolic Volume (4C MOD) 85 ml LV EF (4C MOD) 81 % LV Diastolic Volume (2C MOD) 67 ml LV EF (2C MOD) 85 % LV Diastolic Volume (BP MOD) 76 ml 62-150 LV Diastolic Volume Index (BP MOD) 49 ml/m2 34-74 LV Systolic Volume (BP MOD) 13 ml 21-61 LV Systolic Volume Index (BP MOD) 8 ml/m2 11-31 LV EF (BP MOD) 83 % 52-72 LV Diastolic Length (4C) 7.1 cm LV Systolic Length (4C) 5.3 cm LV Stroke Volume (4C MOD) 69 ml Atria Name Value Normal LA Dimensions LA Dimension (MM) 3.1 cm 3.0-4.1 LA Volume (4C A-L) 43 ml LA Volume (BP A-L) 39 ml RA Dimensions RA Area (4C) 9.2 cm2 <=18.0 Report Signatures
[2024-12-19] MEDS: ENALAPRILAT 1.25 MG/ML VIAL 2.5 MG IV PUSH (01:26)
[2024-12-19] MEDS: ACETAMINOPHEN 325 MG TABLET 650 MG PO ×2 (01:31→08:17)
--- NOTE | 2024-12-19 01:54 | ADMGEN ---
This patient, Ivis Perla, was admitted to IMU Room 202139. Patient/family oriented to hospital policies and general routines including ID bracelet, bed and alarms, visiting hours, pain management, procedures, bathroom and other care routines, personal items, smoking policy, room service/diet, and visiting hours. Information on how to activate the Rapid Response Team has been discussed. Patient/Family are encouraged to report perceived risks to care and to ask questions if they do not understand what they are told or what they should do.
--- NOTE | 2024-12-19 01:55 | PC.NURSE ---
HOSPITALIST CONTACTED BY THIS RN FOR PT CONTINUED WORK OF BREATHING AND HTN. ADDITIONAL ORDERS PLACED BY PROVIDER - BREATHING TX AND ANTIHYPERTENSIVE.
[2024-12-19] MEDS: LOSARTAN POTASSIUM 50 MG TABLET PO (02:26)
[2024-12-19] MEDS: ENALAPRILAT 1.25 MG/ML VIAL 5 MG IV PUSH (02:26)
[2024-12-19] MEDS: IPRATROPIUM BR 0.02% INH SOLN 0.5 MG/2.5 ML VIAL INHALATION ×5 (03:57→19:53)
[2024-12-19] MEDS: LEVALBUTEROL NEB 1.25 MG/3 ML 0.63 MG INHALATION ×5 (03:57→19:53)
[2024-12-19 05:14] LABS: Basophils Percent Auto 0.2 % (0.2-1.2); Hematocrit 28.8 % (42.0-52.0); Hemoglobin 8.5 g/dL (14.0-18.0); Immature Granulocyte Absolute 0.04 K/mm3 (0.00-0.031); Immature Granulocyte Percent A 0.7 % (0-0.5); Lymphocytes Absolute Auto 0.54 K/mm3 (0.9-3.2); Lymphocytes Percent Auto 9.1 % (18.3-44.2); Mean Corpuscular HGB Conc 29.5 g/dl (32-36); Mean Corpuscular Volume 57.6 fl (80-100); Monocytes Absolute Auto 0.8 K/mm3 (0.1-0.6); Monocytes Percent Auto 12.8 % (2.6-8.5); Neutrophils Absolute Auto 4.6 K/mm3 (1.3-6.7); Neutrophils Percent Auto 77.2 % (45.5-73.1); Platelet Count Result 203 k/mm3 (150-375); Red Cell Distribution Width 17.4 % (11.5-14.5); White Blood Count 5.9 K/mm3 (4.5-10.0)
[2024-12-19 05:37] LABS: Alanine Aminotransferase 27 U/L (6-50); Albumin Level 3.1 g/dL (3.5-5.1); Alkaline Phosphatase 70 U/L (38-126); Anion Gap 9 mmol/L (4-12); Aspartate Amino Transferase 66 U/L (17-59); Bilirubin,Total 0.5 mg/dL (0.2-1.3); Blood Urea Nitrogen 15 mg/dL (9-20); Calcium 8.6 mg/dL (8.4-10.2); Carbon Dioxide 25 mmol/L (22-30); Chloride 98 mmol/L (98-107); Estimated CRCL calculation 33 ml/min; Estimated Glomerular Filt Rate 53; Glucose 76 mg/dL (65-110); Potassium 3.1 mmol/L (3.4-5.0); Sodium 132 mmol/L (137-145)
[2024-12-19] MEDS: CEFEPIME 2 GM/NS 50 ML 2 GM/50 ML BAG IVPB ×2 (05:40→17:02)
[2024-12-19 05:47] LABS: CRP 16.6 mg/dL (<1.0)
[2024-12-19 05:49] LABS: Hypochromasia 2+; Platelet Estimate Adequate (Adequate)
[2024-12-19 05:50] LABS: Anisocytosis 1+; Ovalocytes 1+; Schistocytes None Seen; Target Cells 1+
[2024-12-19] MEDS: AZITHROMYCIN 500 MG/NS 250 ML 500 MG/250 ML BAG 250 MG IVPB (05:53)
[2024-12-19] MEDS: methylPREDNISolone SOD SUCC 125 MG VIAL 60 MG IV PUSH (05:53)
[2024-12-19] MEDS: CLOPIDOGREL BISULFATE 75 MG TABLET PO (08:16)
[2024-12-19] MEDS: ASPIRIN 81 MG ENTERIC TABLET PO (08:16)
[2024-12-19] MEDS: ATORVASTATIN 40 MG TABLET PO (08:16)
[2024-12-19] MEDS: OSELTAMIVIR PHOSPHATE 30 MG CAPSULE PO ×2 (08:17→20:27)
[2024-12-19] MEDS: FAMOTIDINE 20 MG/2 ML VIAL IV PUSH ×2 (08:17→20:26)
[2024-12-19 08:30] LABS: Iron < 10 ug/dL (49-181)
[2024-12-19 08:40] LABS: Percent Iron Saturation 3 % (20-50)
[2024-12-19] MEDS: POTASSIUM CHLORIDE 20 MEQ PACKET (FOR LIQUID) 40 MEQ PO (10:21)
[2024-12-19] MEDS: POTASSIUM CHLORIDE INJ 40 MEQ in SODIUM CHLORIDE 0.9% IV 500 ML 130 MEQ IVPB (10:22)
--- NOTE | 2024-12-19 11:55 | PM.CNCAR ---
Assessment and Plan Assessment and plan (1) Elevated troponin: Code(s): R79.89 - Other specified abnormal findings of blood chemistry Status: Acute Plan 1. Elevated troponin 2. Severe sepsis 2/2 influenza 3. Influenza 4. Hypertensive emergency 5. Acute COPD exacerbation 6. Recent CVA 11/2024 7. Carotid artery disease. 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 Renal artery stenosis. CTA C/A/P shows bilateral renal artery stenosis with moderate stenosis of the right renal artery and severe stenosis of the left renal artery. There is mild left kidney atrophy. PLAN: -Troponins are mildly elevated and flat. Serial EKGs with sinus rhythm and LVH with secondary STTW abnormality, although cannot completely exclude ischemia. No chest pain or other anginal symptoms. This is likely type 2 NSTEMI in the setting of severe sepsis, hypertensive emergency. Echocardiogram ordered. Given his risk factors, peripheral artery disease (carotid artery, renal artery stenoses), probably has underlying coronary artery disease. Already on DAPT and high intensity statin, continue. If echocardiogram without significant abnormality, recommend outpatient follow up with us. -Blood pressure are improved. Continue Losartan 50mg once daily. Adjust antihypertensive regimen as needed. -Daughter reports that sometimes she notices that it appears he has issues with food getting stuck after eating. Given his recent stroke, consider Speech Therapy and swallow evaluation. -Outpatient Vascular Surgery consultation regarding carotid artery disease, renal artery stenosis. History of Present Illness History of Present Illness Consult date/time: 12/19/24 11:55 Requesting physician: Demetrius Mora MD Consult reason: Other (Elevated troponin ) Reason For Visit: influenza, sepsis, hypertensive emergency, renal Narrative: We are consulted for elevated troponins. Minesh is a 74 year old male who was recently discharged from [facility] on 12/07/2024 after being admitted with an acute CVA. He also has a history of hypertension, COPD, tobacco dependence, issues with compliance. Presented due to fevers, cough, shortness of breath / wheezing. On 12/18/2024 AM, he first came to the ER, tested positive for the flu. He was recommended for admission at that time as he appeared ill, but signed out AMA. Returned back to the ED later in the day as he continued to feel unwell. Noted to be in severe sepsis. hypertensive with SBP as high as 250s to 260s. His blood pressure improved with small boluses of Hydralazine. Upon my evaluation, patient denies chest pain. History obtained also from daughter. Daughter reports that sometimes she notices that it appears he has issues with food getting stuck after eating. Workup shows: Troponins of 0.658, 0.665 Brain MRI 12/07/2024 shows 1cm ovoid acute infarct at the posterior aspect of the right internal capsule/right thalamus, moderate chronic microvascular changes CTA C/A/P shows bilateral renal artery stenosis with moderate stenosis of the right renal artery and severe stenosis of the left renal artery. There is mild left kidney atrophy. There is moderate emphysema, esophagitis, mild mediastinal and bilateral hilar lymphadenopathy. Serial EKGs with sinus rhythm, LVH with secondary STTW abnormality, although cannot rule out ischemia. No prior echocardiogram in our system. Review of Systems Review of Systems: All systems reviewed & are unremarkable except as noted in HPI and below (HPI) [facility] Past Medical History Medical History Cigarette smoker Essential hypertension COPD (chronic obstructive pulmonary disease) Family History Family History Sibling Heart valve problem Mother Coarse tremors Father Hypertension Social History Social History Social History: Lives with daughter's family. Full code. Smokes 3-4 cigarettes per day. No alcohol or recreational drug use. Smoking packs per day: 0.25 Smoking cigarettes per day: 5.0 Years smoked: 25 Smoking pack-years: 6.25 Smoking status: Current every day smoker Tobacco type: cigarettes Alcohol intake: never Substance use: never Do You Feel Safe in your Home?: Yes Lack of Transportation: No Lack of Food: Never True Current Housing: I Have Housing Concerned About Future Housing: No Difficulty Paying Gas/Electric Bills: No Difficulty Paying for Meds: No Currently Unemployed: No Education: Grade School Difficulty w/ Childcare or Family Care: No Living arrangements: with family Occupation/Education: retired Spiritual care concerns: No Meds Home Medications and Allergies Home Medications ?Medication ?Instructions ?Recorded ?Confirmed ?Type albuterol sulfate 90 mcg/actuation 2 puff inhalation Q6H PRN 12/07/24 12/19/24 Rx aerosol inhaler shortness of breath or wheezing #1 g atorvastatin 40 mg tablet 40 mg PO DAILY #30 tabs 12/07/24 12/19/24 Rx budesonide-formoterol HFA 160 2 puff inhalation BID #1 g 12/07/24 12/19/24 Rx mcg-4.5 mcg/actuation aerosol inhaler (Symbicort) telmisartan 40 1 tablet PO DAILY #30 tabs 12/07/24 12/19/24 Rx mg-hydrochlorothiazide 12.5 mg tablet acetaminophen 500 mg capsule 1,000 mg (2 x 500 mg) PO Q6H PRN 12/18/24 12/19/24 Rx pain #30 caps albuterol sulfate 90 mcg/actuation 1 inh inhalation QID PRN shortness 12/18/24 12/19/24 Rx aerosol inhaler of breath or wheezing #6.7 grams ibuprofen 600 mg tablet 600 mg PO TID PRN pain #30 tabs 12/18/24 12/19/24 Rx amlodipine 5 mg tablet 5 mg PO DAILY 12/19/24 12/19/24 History aspirin 81 mg tablet,delayed 81 mg PO DAILY 12/19/24 12/19/24 History release budesonide-formoterol HFA 160 2 inh inhalation Q12H 12/19/24 12/19/24 History mcg-4.5 mcg/actuation aerosol inhaler (Breyna) clopidogrel 75 mg tablet 75 mg PO DAILY 12/19/24 12/19/24 History docusate sodium 100 mg capsule 100 mg PO DAILY PRN constipation 12/19/24 12/19/24 History (Stool Softener) losartan 100 1 tablet PO DAILY 12/19/24 12/19/24 History mg-hydrochlorothiazide 12.5 mg tablet polyethylene glycol 3350 17 17 g PO DAILY PRN constipation 12/19/24 12/19/24 History gram/dose oral powder theophylline 300 mg 300 mg PO DAILY 12/19/24 12/19/24 History capsule,extended release 24 hr Allergies Allergy/AdvReac Type Severity Reaction Status Date / Time No Known Allergies Allergy Verified 12/19/24 02:00 Vital Signs Vital Signs - 24 hr 12/18/24 14:19 12/18/24 14:57 12/18/24 16:01 Temperature 39.0 C H 39.6 C H Pulse Rate 110 H Respiratory Rate 25 H Blood Pressure 254/72 H Pulse Oximetry 98 98 Oxygen Delivery Room Air BiPAP Oxygen Flow Rate Fraction of Inspired Oxygen 12/18/24 16:02 12/18/24 16:04 12/18/24 16:11 Temperature Pulse Rate 103 H 102 H 97 Respiratory Rate 42 H 36 H Blood Pressure 204/68 H Pulse Oximetry 100 99 Oxygen Delivery BiPAP Oxygen Flow Rate Fraction of Inspired Oxygen 12/18/24 16:11 12/18/24 16:12 12/18/24 16:15 Temperature 38.8 C H Pulse Rate 98 96 Respiratory Rate 37 H 34 H Blood Pressure 204/68 H 193/62 H Pulse Oximetry 100 100 Oxygen Delivery Oxygen Flow Rate Fraction of Inspired Oxygen 12/18/24 16:43 12/18/24 16:47 12/18/24 16:50 Temperature Pulse Rate 104 H Respiratory Rate 32 H Blood Pressure 184/65 H 204/76 H Pulse Oximetry 96 Oxygen Delivery BiPAP Oxygen Flow Rate Fraction of Inspired Oxygen 12/18/24 17:07 12/18/24 17:21 12/18/24 17:50 Temperature 38.8 C H Pulse Rate 102 H 105 H Respiratory Rate 33 H 35 H Blood Pressure 207/95 H 202/72 H 186/73 H Pulse Oximetry 96 97 Oxygen Delivery Oxygen Flow Rate Fraction of Inspired Oxygen 12/18/24 18:00 12/18/24 18:10 12/18/24 18:12 Temperature Pulse Rate 92 Respiratory Rate 34 H Blood Pressure 204/66 H 201/63 H Pulse Oximetry 98 Oxygen Delivery BiPAP Oxygen Flow Rate Fraction of Inspired Oxygen 12/18/24 18:20 12/18/24 18:30 12/18/24 18:40 Temperature 38.6 C H Pulse Rate 91 Respiratory Rate 30 H Blood Pressure 176/88 H 203/80 H 191/63 H Pulse Oximetry 99 Oxygen Delivery Oxygen Flow Rate Fraction of Inspired Oxygen 12/18/24 19:07 12/18/24 20:51 12/18/24 21:55 Temperature Pulse Rate 83 99 104 H Respiratory Rate 28 H 28 H 38 H Blood Pressure 186/73 H Pulse Oximetry 99 100 Oxygen Delivery High Flow Nasal Cannula Oxygen Flow Rate 8 Fraction of Inspired Oxygen 12/18/24 22:02 12/18/24 22:20 12/19/24 01:18 Temperature 36.8 C Pulse Rate 103 H 116 H Respiratory Rate 40 H 29 H Blood Pressure 187/70 H Pulse Oximetry 100 Oxygen Delivery Oxygen Flow Rate Fraction of Inspired Oxygen 12/19/24 01:31 12/19/24 01:42 12/19/24 01:48 Temperature 38.9 C H 36.8 C 38.8 C H Pulse Rate 116 H 106 H Respiratory Rate 45 H 16 Blood Pressure 226/74 H 200/83 H Pulse Oximetry 99 97 Oxygen Delivery Oxygen Flow Rate Fraction of Inspired Oxygen 12/19/24 02:00 12/19/24 02:39 12/19/24 03:09 Temperature Pulse Rate 101 H 102 H Respiratory Rate 34 H Blood Pressure Pulse Oximetry 100 Oxygen Delivery BiPAP BiPAP Oxygen Flow Rate Fraction of Inspired Oxygen 40 12/19/24 03:59 12/19/24 04:00 12/19/24 04:00 Temperature 37.1 C Pulse Rate 80 80 86 Respiratory Rate 30 H 26 H 37 H Blood Pressure 162/64 H Pulse Oximetry 100 100 Oxygen Delivery BiPAP Oxygen Flow Rate Fraction of Inspired Oxygen 12/19/24 04:00 12/19/24 04:02 12/19/24 07:40 Temperature 38.5 C H Pulse Rate 81 83 90 Respiratory Rate 31 H 28 H Blood Pressure 162/67 H Pulse Oximetry 100 Oxygen Delivery Oxygen Flow Rate Fraction of Inspired Oxygen 12/19/24 08:00 12/19/24 08:04 12/19/24 08:17 Temperature 38.5 C H Pulse Rate 87 87 Respiratory Rate 31 H 31 H Blood Pressure Pulse Oximetry 100 Oxygen Delivery BiPAP Oxygen Flow Rate Fraction of Inspired Oxygen 12/19/24 08:24 12/19/24 09:14 12/19/24 09:15 Temperature 36.8 C Pulse Rate 93 95 Respiratory Rate 20 20 Blood Pressure Pulse Oximetry 98 Oxygen Delivery Nasal Cannula Oxygen Flow Rate 2 Fraction of Inspired Oxygen 12/19/24 11:34 12/19/24 11:38 12/19/24 11:38 Temperature 36.8 C Pulse Rate 75 76 76 Respiratory Rate 16 20 20 Blood Pressure 127/53 L Pulse Oximetry 100 100 Oxygen Delivery Nasal Cannula Oxygen Flow Rate 3 Fraction of Inspired Oxygen 12/19/24 11:52 Temperature Pulse Rate 82 Respiratory Rate 20 Blood Pressure Pulse Oximetry Oxygen Delivery Oxygen Flow Rate Fraction of Inspired Oxygen Exam Const: General: no acute distress HENMT: Mouth: Yes dry mucous membranes Eyes: General: appearance normal, both eyes and all related structures Sclera: sclerae normal Resp: Effort & Inspection: normal respiratory effort Auscultation: diminished lung sounds Other: On supplemental oxygen Cardio: Rate: regular rate Rhythm: regular rhythm Heart sounds: no murmurs Neuro: Other: Appears to have left-sided facial droop, some mild aphasia Psych: Affect: normal affect Results Labs and Meds 12/19/24 04:52 12/19/24 04:52 Lab results: Cardiac Enzymes 12/18/24 12/18/24 12/18/24 Range/Units 15:07 15:08 18:34 AST 55 (17-59) U/L Troponin I 0.658 H* 0.665 H* (0.000-0.034) ng/mL 12/19/24 Range/Units 04:52 AST 66 H (17-59) U/L Troponin I (0.000-0.034) ng/mL CBC 12/18/24 12/19/24 Range/Units 15:08 04:52 WBC 11.1 H 5.9 (4.5-10.0) K/mm3 RBC 6.59 H 5.00 (4.6-6.20) M/mm3 Hgb 11.1 L 8.5 L (14.0-18.0) g/dL Hct 38.4 L 28.8 L (42.0-52.0) % Plt Count 252 203 (150-375) k/mm3 Lymph # (Auto) 0.83 L 0.54 L (0.9-3.2) K/mm3 [place] # (Auto) 1.0 H 0.8 H (0.1-0.6) K/mm3 Eos # (Auto) 0.0 0.0 (0-0.3) K/mm3 Baso # (Auto) 0.0 0.0 (0.0-0.1) K/mm3 Comprehensive Metabolic Panel 12/18/24 12/19/24 Range/Units 15:08 04:52 Sodium 134 L 132 L (137-145) mmol/L Potassium 3.9 3.1 L (3.4-5.0) mmol/L Chloride 98 98 (98-107) mmol/L Carbon Dioxide 22 25 (22-30) mmol/L BUN 17 15 (9-20) mg/dL Creatinine 1.27 1.33 H (0.7-1.3) mg/dL Glucose 81 76 (65-110) mg/dL Calcium 9.7 8.6 (8.4-10.2) mg/dL AST 55 66 H (17-59) U/L ALT 26 27 (6-50) U/L Alkaline Phosphatase 105 70 (38-126) U/L Total Protein 8.0 6.0 L (6.3-8.2) g/dL Albumin 4.6 3.1 L (3.5-5.1) g/dL Intake and Output 12/18/24 12/19/24 12/19/24 23:59 07:59 15:59 Intake Total 2300 1043.8 120 Balance 2300 1043.8 120 Intake: IV 2300 943.8 Lactated Ringers 2,000 ml @ 0 2000 mls/hr .ROUTE .STK-MED ONE Rx#: [id number] Lactated Ringers 1,000 ml @ 125 643.8 mls/hr IV CONT .Q8H [facility] Rx#: [id number] Azithromycin 500 mg/Ns 250 ml 250 500 mg In 250 ml @ 250 mls/hr IVPB Q24H [facility] Rx#:[id number] Cefepime 2 gm/Ns 50 ml 2 gm In 50 50 50 ml @ 100 mls/hr IVPB Q12H [facility] Rx#:[id number] Vancomycin 1,250 mg/Ns 250 ml 1 250 ,250 mg In 250 ml @ 166.667 mls /hr IVPB ONCE ONE Rx#:[id number] Oral 100 120 Patient Weight 12/19/24 23:59 Weight 51.8 kg
--- NOTE | 2024-12-19 13:15 | PCSTNOTE ---
Please refer to the Modified Barium Swallow Evaluation in the EMR. The above pt was seen for a modified barium swallow due to recent CVA with oral motor weakness and with reported food getting caught in his throat. Pt is edentulous; the pts son was present to assist with the language barrier but he also did not appear to understand all questioning regarding dentition or pre-existing swallow difficulty. His son conveyed that pt previously pt could eat solids (salad) but is a vegetarian so he does not eat meat. Pt was seated for a lateral view and required max instruction to hold still as he was moving all around attempting to see the screen. He was presented with thin liquids, pudding consistency, crumbled cracker coated with barium pudding in controlled amounts via a spoon. He was also tested with thin liquids in uncontrolled amounts via a cup and a straw. Oral stage symptoms: none; pharyngeal stage symptoms: none. No laryngeal penetration, pharyngeal residual, or aspiration was noted. Impression: functional swallow only impacted by being edentulous and mild oral motor weakness, Recommendation: Level 5 minced and moist diet with regular liquids No further ST is warranted.
--- NOTE | 2024-12-19 14:32 | P.PNIM_ITS ---
Progress Note: A&P Assessment and Plan (1) Influenza A: Code(s): J10.1 - Influenza due to other identified influenza virus with other respiratory manifestations Status: Inactive (2) Cigarette smoker: Code(s): F17.210 - Nicotine dependence, cigarettes, uncomplicated Status: Acute (3) Hypertensive urgency: Code(s): I16.0 - Hypertensive urgency Status: Acute (4) Elevated troponin: Code(s): R79.89 - Other specified abnormal findings of blood chemistry Status: Acute (5) Lactic acidosis: Code(s): E87.20 - Acidosis, unspecified Status: Acute (6) Sepsis: Code(s): A41.9 - Sepsis, unspecified organism Status: Acute (7) Transient alteration of awareness: Code(s): R40.4 - Transient alteration of awareness Status: Acute (8) Respiratory distress: Code(s): R06.03 - Acute respiratory distress Status: Acute Plan Influenza a -Tamiflu 30 mg p.o. b.i.d. has been started. Continue Acute COPD exacerbation was on BiPAP now on 3 liters on encounter Contineu bronchodilators and Inhaled steroid acute hypoxemic respiratory failure Was on bipap now on 3 liters titrate Hypertensive urgency -bilateral renal artery stenosis with mild left kidney atrophy identified on CTA abdomen pelvis. Cozaar 100 mg p.o. q.day is been scheduled to start on 12/19/2024. Discontinued ARBs due to renal artery stenosis started on Amlodipine and adjust with clinical course Active tobacco abuse -counseling provided. Severe sepsis present on admission with evidence of end-organ damage as evidenced by encephalopathy/transient alteration in awareness vital signs wnl CT chest AP no acute changes except bilateral renal artery stenosis and esophagitis Continue Cefepime Vanc discontinued monitor Elevated troponin Likely type II demand trend Cardiology following Esophagitis -famotidine IV started. 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 Currently has no symptoms. Continue to monitor. 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 MRI demonstrated right thalamus and internal capsule stroke. Restart [employer] aspirin clopidogrel and statin. Daughter reports he is being referred by PCP to vascular surgery. DVT prophylaxis on Sq Lovenox Subjective Date/time seen: 12/19/24 14:32 Interval history: comfortable at bedside passed swallow eval today son note he has markedly improved from admission Review of Systems Review of Systems: All systems reviewed & are unremarkable except as noted in HPI and below (HPI) Exam Const: General: comfortable and no acute distress Eyes: Pupils: Equal, round and reactive pupils present Neck: Neck: supple Resp: Other: Slight expiratory wheeze Cardio: Rate: regular rate Rhythm: regular rhythm Neuro: Cranial nerves: Yes Equal, round and reactive pupils present Other: Gait exam deferred. Moves all 4 extremities spontaneously, 5/5 strength x4 Objective Data Vital Signs Vital Signs: Vital Signs - 24 hr 12/18/24 14:57 12/18/24 16:01 12/18/24 16:02 Temperature 103.2 F H Pulse Rate 103 H Respiratory Rate Blood Pressure Pulse Oximetry 98 Oxygen Delivery BiPAP Oxygen Flow Rate Fraction of Inspired Oxygen 12/18/24 16:04 12/18/24 16:11 12/18/24 16:11 Temperature 101.8 F H Pulse Rate 102 H 97 Respiratory Rate 42 H 36 H Blood Pressure 204/68 H Pulse Oximetry 100 99 Oxygen Delivery BiPAP Oxygen Flow Rate Fraction of Inspired Oxygen 12/18/24 16:12 12/18/24 16:15 12/18/24 16:43 Temperature Pulse Rate 98 96 Respiratory Rate 37 H 34 H Blood Pressure 204/68 H 193/62 H 184/65 H Pulse Oximetry 100 100 Oxygen Delivery Oxygen Flow Rate Fraction of Inspired Oxygen 12/18/24 16:47 12/18/24 16:50 12/18/24 17:07 Temperature 101.8 F H Pulse Rate 104 H 102 H Respiratory Rate 32 H 33 H Blood Pressure 204/76 H 207/95 H Pulse Oximetry 96 96 Oxygen Delivery BiPAP Oxygen Flow Rate Fraction of Inspired Oxygen 12/18/24 17:21 12/18/24 17:50 12/18/24 18:00 Temperature Pulse Rate 105 H Respiratory Rate 35 H Blood Pressure 202/72 H 186/73 H 204/66 H Pulse Oximetry 97 Oxygen Delivery Oxygen Flow Rate Fraction of Inspired Oxygen 12/18/24 18:10 12/18/24 18:12 12/18/24 18:20 Temperature Pulse Rate 92 Respiratory Rate 34 H Blood Pressure 201/63 H 176/88 H Pulse Oximetry 98 Oxygen Delivery BiPAP Oxygen Flow Rate Fraction of Inspired Oxygen 12/18/24 18:30 12/18/24 18:40 12/18/24 19:07 Temperature 101.4 F H Pulse Rate 91 83 Respiratory Rate 30 H 28 H Blood Pressure 203/80 H 191/63 H 186/73 H Pulse Oximetry 99 99 Oxygen Delivery Oxygen Flow Rate Fraction of Inspired Oxygen 12/18/24 20:51 12/18/24 21:55 12/18/24 22:02 Temperature Pulse Rate 99 104 H 103 H Respiratory Rate 28 H 38 H 40 H Blood Pressure Pulse Oximetry 100 Oxygen Delivery High Flow Nasal Cannula Oxygen Flow Rate 8 Fraction of Inspired Oxygen 12/18/24 22:20 12/19/24 01:18 12/19/24 01:31 Temperature 98.3 F 102.0 F H Pulse Rate 116 H Respiratory Rate 29 H Blood Pressure 187/70 H Pulse Oximetry 100 Oxygen Delivery Oxygen Flow Rate Fraction of Inspired Oxygen 12/19/24 01:42 12/19/24 01:48 12/19/24 02:00 Temperature 98.3 F 102 F H Pulse Rate 116 H 106 H 101 H Respiratory Rate 45 H 16 Blood Pressure 226/74 H 200/83 H Pulse Oximetry 99 97 Oxygen Delivery Oxygen Flow Rate Fraction of Inspired Oxygen 12/19/24 02:39 12/19/24 03:09 12/19/24 03:59 Temperature Pulse Rate 102 H 80 Respiratory Rate 34 H 30 H Blood Pressure Pulse Oximetry 100 Oxygen Delivery BiPAP BiPAP Oxygen Flow Rate Fraction of Inspired Oxygen 40 12/19/24 04:00 12/19/24 04:00 12/19/24 04:00 Temperature 98.8 F Pulse Rate 80 86 81 Respiratory Rate 26 H 37 H Blood Pressure 162/64 H Pulse Oximetry 100 100 Oxygen Delivery BiPAP Oxygen Flow Rate Fraction of Inspired Oxygen 12/19/24 04:02 12/19/24 07:40 12/19/24 08:00 Temperature 101.3 F H Pulse Rate 83 90 87 Respiratory Rate 31 H 28 H 31 H Blood Pressure 162/67 H Pulse Oximetry 100 100 Oxygen Delivery BiPAP Oxygen Flow Rate Fraction of Inspired Oxygen 12/19/24 08:04 12/19/24 08:17 12/19/24 08:24 Temperature 101.3 F H Pulse Rate 87 93 Respiratory Rate 31 H 20 Blood Pressure Pulse Oximetry Oxygen Delivery Oxygen Flow Rate Fraction of Inspired Oxygen 12/19/24 09:14 12/19/24 09:15 12/19/24 11:34 Temperature 98.3 F 98.2 F Pulse Rate 95 75 Respiratory Rate 20 16 Blood Pressure 127/53 L Pulse Oximetry 98 100 Oxygen Delivery Nasal Cannula Oxygen Flow Rate 2 Fraction of Inspired Oxygen 12/19/24 11:38 12/19/24 11:38 12/19/24 11:52 Temperature Pulse Rate 76 76 82 Respiratory Rate 20 20 20 Blood Pressure Pulse Oximetry 100 Oxygen Delivery Nasal Cannula Oxygen Flow Rate 3 Fraction of Inspired Oxygen 12/19/24 12:15 Temperature Pulse Rate Respiratory Rate Blood Pressure Pulse Oximetry 96 Oxygen Delivery Room Air Oxygen Flow Rate Fraction of Inspired Oxygen Intake/Output Intake/Output: Intake & Output 12/16/24 12/17/24 12/18/24 12/19/24 23:59 23:59 23:59 23:59 Intake Total 2300 1163.8 Balance 2300 1163.8 Meds/Results Medications: Active Medications Generic Name Dose Route Start Last Admin Trade Name Freq PRN Reason Stop Dose Admin Acetaminophen 650 mg 12/18/24 18:45 12/19/24 08:17 Acetaminophen 325 Mg Tablet PO 650 mg Q4H PRN Administration Mild Pain (1-3) or Fever Aspirin 81 mg 12/19/24 09:00 12/19/24 08:16 Aspirin 81 Mg Enteric Tablet PO 81 mg QAM FADUMO Administration Atorvastatin Calcium 40 mg 12/19/24 09:00 12/19/24 08:16 Atorvastatin 40 Mg Tablet PO 40 mg DAILY FADUMO Administration Clopidogrel Bisulfate 75 mg 12/19/24 09:00 12/19/24 08:16 Clopidogrel Bisulfate 75 Mg Tablet PO 75 mg QAM FADUMO Administration Famotidine 20 mg 12/18/24 21:00 12/19/24 08:17 Famotidine 20 Mg/2 Ml Vial IV PUSH 20 mg Q12HR FADUMO Administration Hydralazine HCl 10 mg 12/18/24 18:42 12/18/24 20:17 Hydralazine Hcl 20 Mg/Ml Vial IV PUSH 10 mg Q6H PRN Administration Blood Pressure - High Cefepime HCl 2 gm in 50 mls @ 100 mls/hr 12/19/24 06:00 12/19/24 06:51 Maxipime 2 Gm/Ns 50 Ml IVPB Infused Q12H FADUMO Infusion Azithromycin 500 mg in 250 mls @ 250 mls/hr 12/19/24 06:00 12/19/24 06:51 Zithromax IVPB Infused Q24H FADUMO Infusion Ipratropium [place] 0.5 mg 12/18/24 18:38 12/18/24 21:55 Ipratropium Br 0.02% Inh Soln 0.5 Mg/2.5 Ml Vial INHALATION 0.5 mg Q6HRT PRN Administration Shortness Of Breath Or Wheezing Ipratropium [place] 0.5 mg 12/19/24 04:00 12/19/24 11:36 Ipratropium Br 0.02% Inh Soln 0.5 Mg/2.5 Ml Vial INHALATION 0.5 mg Q4HRT FADUMO Administration Levalbuterol HCl 0.63 mg 12/18/24 18:38 12/18/24 21:55 Levalbuterol Neb 1.25 Mg/3 Ml INHALATION 0.63 mg Q6HRT PRN Administration Shortness Of Breath Or Wheezing Levalbuterol HCl 0.63 mg 12/19/24 04:00 12/19/24 11:37 Levalbuterol Neb 1.25 Mg/3 Ml INHALATION 0.63 mg Q4HRT FADUMO Administration Losartan Potassium 50 mg 12/19/24 02:05 12/19/24 02:26 Losartan Potassium 50 Mg Tablet PO 50 mg DAILY FADUMO Administration Methylprednisolone Sodium Succinate 60 mg 12/19/24 06:00 12/19/24 05:53 Methylprednisolone Sod Succ 125 Mg Vial IV PUSH 60 mg Q8HR FADUMO Administration Ondansetron HCl 4 mg 12/18/24 18:45 Ondansetron Inj 4 Mg/2 Ml Vial IV PUSH Q4H PRN Nausea Oseltamivir Phosphate 30 mg 12/18/24 21:00 12/19/24 08:17 Oseltamivir Phosphate 30 Mg Capsule PO 12/23/24 20:59 30 mg Q12HR FADUMO Administration Perflutren Lipid Microsphere 0 ml 12/18/24 15:23 Perflutren Lipid Microspheres 1.5 Ml Vial Diluted To 10 Ml Total Volume IV PUSH 12/21/24 15:23 ONCE PRN adequate visualization Protocol Radiology Results: ITS Impressions Chest X-Ray 12/18/24 15:26 IMPRESSION: Chronic interstitial change without focal infiltrate or effusion. Head CT 12/18/24 16:44 IMPRESSION: 1. Old infarcts in the left thalamus and right basal ganglia. 2. Stable moderate nonspecific cerebral white matter disease, which likely represents chronic small vessel ischemic disease. Chest/Abdomen/Pelvis CTA 12/18/24 16:46 IMPRESSION: 1. Bilateral renal artery stenosis. Mild left kidney atrophy. 2. Moderate emphysema. 3. Wall thickening of the distal esophagus, likely esophagitis. 4. Mild mediastinal and bilateral hilar lymphadenopathy, likely reactive. Labs Labs: Laboratory Results - last 24 hr 12/18/24 12/18/24 12/18/24 15:07 15:08 15:57 WBC 11.1 H RBC 6.59 H Hgb 11.1 L Hct 38.4 L MCV 58.3 L MCH 16.8 L MCHC 28.9 L RDW 19.4 H Plt Count 252 MPV 9.5 Immature Gran % (Auto) 0.6 H Neut % (Auto) 82.6 H Lymph % (Auto) 7.5 L Carbon % (Auto) 8.8 H Eos % (Auto) 0.1 Baso % (Auto) 0.4 Lymph # (Auto) 0.83 L Carbon # (Auto) 1.0 H Eos # (Auto) 0.0 Baso # (Auto) 0.0 Abs Immat Gran (auto) 0.07 H Absolute Neuts (auto) 9.1 H Absolute Nucleated RBC 0.000 Nucleated RBC % 0.0 Platelet Estimate Adequate % Immature Plt Fraction 2.6 Hypochromasia 1+ Anisocytosis 1+ Target Cells 1+ Ovalocytes Schistocytes None seen VBG pH 7.467 H* VBG pCO2 31.6 L VBG pO2 40.4 VBG HCO3 22.3 L O2 Delivery Device Non-invasive vent O2 Liters/Min Not Reportable Vent Rate 14 FiO2 50 Expiratory Pressure 6 Inspiratory Pressure 12 Sodium 134 L Potassium 3.9 Chloride 98 Carbon Dioxide 22 Anion Gap 14 H BUN 17 Creatinine 1.27 Estim Creat Clear Calc Not Reportable Estimated GFR 56 L Glucose 81 Lactic Acid 2.8 H Calcium 9.7 Iron TIBC % Saturation Ferritin Total Bilirubin 0.7 AST 55 ALT 26 Alkaline Phosphatase 105 Troponin I 0.658 H* C-Reactive Protein Total Protein 8.0 Albumin 4.6 TSH (Reflex) 3.120 Nasal MRSA (PCR) 12/18/24 12/18/24 12/19/24 17:25 18:34 04:52 WBC 5.9 RBC 5.00 Hgb 8.5 L Hct 28.8 L MCV 57.6 L MCH 17.0 L MCHC 29.5 L RDW 17.4 H Plt Count 203 MPV 9.0 Immature Gran % (Auto) 0.7 H Neut % (Auto) 77.2 H Lymph % (Auto) 9.1 L [place] % (Auto) 12.8 H Eos % (Auto) 0.0 Baso % (Auto) 0.2 Lymph # (Auto) 0.54 L [place] # (Auto) 0.8 H Eos # (Auto) 0.0 Baso # (Auto) 0.0 Abs Immat Gran (auto) 0.04 H Absolute Neuts (auto) 4.6 Absolute Nucleated RBC 0.000 Nucleated RBC % 0.0 Platelet Estimate Adequate % Immature Plt Fraction Hypochromasia 2+ Anisocytosis 1+ Target Cells 1+ Ovalocytes 1+ Schistocytes None seen VBG pH VBG pCO2 VBG pO2 VBG HCO3 O2 Delivery Device O2 Liters/Min Vent Rate FiO2 Expiratory Pressure Inspiratory Pressure Sodium 132 L Potassium 3.1 L Chloride 98 Carbon Dioxide 25 Anion Gap 9 BUN 15 Creatinine 1.33 H Estim Creat Clear Calc 33 Estimated GFR 53 L Glucose 76 Lactic Acid 1.1 Calcium 8.6 Iron < 10 L TIBC 365 % Saturation 3 L Ferritin 66.70 Total Bilirubin 0.5 AST 66 H ALT 27 Alkaline Phosphatase 70 Troponin I 0.665 H* C-Reactive Protein 16.6 H Total Protein 6.0 L Albumin 3.1 L TSH (Reflex) Nasal MRSA (PCR) Not detected
[2024-12-19] MEDS: amLODIPine BESYLATE 10 MG TABLET PO (15:09)
[2024-12-19] MEDS: IRON SUCROSE COMPLEX 400 MG, IRON SUCROSE COMPLEX 100 MG in SODIUM CHLORIDE 0.9% IV 250 ML 78.57 MG IVPB (17:21)
[2024-12-19 17:56] LABS: Troponin I 0.332 ng/mL (0.000-0.034)
[2024-12-19] MEDS: BUDESONIDE RESPULE NEB 0.5 MG/2 ML AMP INHALATION (19:54)
[2024-12-19] MEDS: PANTOPRAZOLE 40 MG TABLET PO (20:27)
[2024-12-19] MEDS: BENZONATATE 100 MG CAPSULE PO (23:25)
[2024-12-20] VITALS (16 sets, daily range): BP systolic 157–188; BP diastolic 53–99; PULSE 60–93; RESP 16–22; TEMP 36.3–37.3; O2SAT 92–100
[2024-12-20] MEDS: IPRATROPIUM BR 0.02% INH SOLN 0.5 MG/2.5 ML VIAL INHALATION ×4 (00:10→21:00)
[2024-12-20] MEDS: LEVALBUTEROL NEB 1.25 MG/3 ML 0.63 MG INHALATION ×4 (00:10→21:01)
--- NOTE | 2024-12-20 04:03 | PCRCNOTE ---
Window of time for administration has passed. See next scheduled administration.
[2024-12-20] MEDS: CEFEPIME 2 GM/NS 50 ML 2 GM/50 ML BAG IVPB ×2 (06:11→17:44)
[2024-12-20] MEDS: AZITHROMYCIN 500 MG/NS 250 ML 500 MG/250 ML BAG 250 MG IVPB (06:11)
[2024-12-20] MEDS: BUDESONIDE RESPULE NEB 0.5 MG/2 ML AMP INHALATION ×2 (07:39→21:01)
[2024-12-20] MEDS: PANTOPRAZOLE 40 MG TABLET PO ×2 (09:29→20:49)
[2024-12-20] MEDS: ASPIRIN 81 MG ENTERIC TABLET PO (09:29)
[2024-12-20] MEDS: CLOPIDOGREL BISULFATE 75 MG TABLET PO (09:29)
[2024-12-20] MEDS: ATORVASTATIN 40 MG TABLET PO (09:29)
[2024-12-20] MEDS: predniSONE 20 MG, predniSONE 10 MG 30 MG PO (09:29)
[2024-12-20] MEDS: FAMOTIDINE 20 MG/2 ML VIAL IV PUSH ×2 (09:30→20:49)
[2024-12-20] MEDS: amLODIPine BESYLATE 10 MG TABLET PO (09:30)
[2024-12-20] MEDS: OSELTAMIVIR PHOSPHATE 30 MG CAPSULE PO ×2 (09:30→20:49)
[2024-12-20] MEDS: IRON SUCROSE COMPLEX 400 MG, IRON SUCROSE COMPLEX 100 MG in SODIUM CHLORIDE 0.9% IV 250 ML 78.57 MG IVPB (11:37)
[2024-12-20] MEDS: LOSARTAN POTASSIUM 100 MG TABLET PO (11:37)
[2024-12-20] MEDS: hydroCHLOROthiazide 12.5 MG CAPSULE PO (11:37)
--- NOTE | 2024-12-20 16:04 | PM.IMPN ---
Progress Note: A&P Assessment and Plan (1) Influenza A: Code(s): J10.1 - Influenza due to other identified influenza virus with other respiratory manifestations Status: Inactive (2) Cigarette smoker: Code(s): F17.210 - Nicotine dependence, cigarettes, uncomplicated Status: Acute (3) Hypertensive urgency: Code(s): I16.0 - Hypertensive urgency Status: Acute (4) Elevated troponin: Code(s): R79.89 - Other specified abnormal findings of blood chemistry Status: Acute (5) Lactic acidosis: Code(s): E87.20 - Acidosis, unspecified Status: Acute (6) Sepsis: Code(s): A41.9 - Sepsis, unspecified organism Status: Acute (7) Transient alteration of awareness: Code(s): R40.4 - Transient alteration of awareness Status: Acute (8) Respiratory distress: Code(s): R06.03 - Acute respiratory distress Status: Acute Plan Influenza a -Tamiflu 30 mg p.o. b.i.d. has been started. Continue Acute COPD exacerbation was on BiPAP Contineu bronchodilators and Inhaled steroid now on room air Acute hypoxemic respiratory failure Was on bipap resolved titrate Hypertensive urgency -bilateral renal artery stenosis with mild left kidney atrophy identified on CTA abdomen pelvis. Discontinued ARBs due to renal artery stenosis Continue Amlodipine, HCTZ and Isosorbide dinitrate, still poorly controlled awaiting transfer to [place] for vascular intervention Active tobacco abuse -counseling provided. 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 Currently has no symptoms. Continue to monitor. 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 MRI demonstrated right thalamus and internal capsule stroke. Restart [employer] aspirin clopidogrel and statin. Significant left carotid artery stenosis CTA from 12/07 transfer to [place] for vascular intervention DVT prophylaxis on Sq Lovenox Awaiting transfer to [place] for vascular surgery intervention Subjective Date/time seen: 12/20/24 16:04 Interval history: comfortable at bedside Patient pending transfer to [place] for vascular intervention due to bilateral renal artery stenosis with poorly controlled hypertension. Review of Systems Review of Systems: All systems reviewed & are unremarkable except as noted in HPI and below (HPI) Exam Const: General: comfortable and no acute distress Eyes: Pupils: Equal, round and reactive pupils present Neck: Neck: supple Resp: Other: Slight expiratory wheeze Cardio: Rate: regular rate Rhythm: regular rhythm Neuro: Cranial nerves: Yes Equal, round and reactive pupils present Other: Gait exam deferred. Moves all 4 extremities spontaneously, 5/5 strength x4 Objective Data Vital Signs Vital Signs: Vital Signs - 24 hr 12/19/24 18:00 12/19/24 19:54 12/19/24 20:00 Temperature 98.1 F Pulse Rate 87 82 79 Respiratory Rate 20 18 Blood Pressure 156/67 H Pulse Oximetry 95 Oxygen Delivery 12/19/24 20:00 12/19/24 20:00 12/19/24 20:11 Temperature Pulse Rate 79 82 Respiratory Rate 20 Blood Pressure Pulse Oximetry 100 Oxygen Delivery Room Air 12/19/24 22:00 12/20/24 00:00 12/20/24 00:00 Temperature 98.3 F Pulse Rate 88 75 Respiratory Rate 16 Blood Pressure 179/99 H Pulse Oximetry 99 99 Oxygen Delivery Room Air 12/20/24 00:00 12/20/24 00:10 12/20/24 00:20 Temperature Pulse Rate 83 70 76 Respiratory Rate 20 20 Blood Pressure Pulse Oximetry Oxygen Delivery 12/20/24 02:00 12/20/24 04:00 12/20/24 04:00 Temperature 99.1 F Pulse Rate 81 82 Respiratory Rate 18 Blood Pressure 186/69 H Pulse Oximetry 92 99 Oxygen Delivery Room Air 12/20/24 04:00 12/20/24 06:00 12/20/24 07:40 Temperature Pulse Rate 76 86 Respiratory Rate Blood Pressure Pulse Oximetry 96 Oxygen Delivery Room Air 12/20/24 07:40 12/20/24 07:45 12/20/24 07:56 Temperature 98.7 F Pulse Rate 68 85 73 Respiratory Rate 20 18 20 Blood Pressure 180/53 H Pulse Oximetry 100 Oxygen Delivery 12/20/24 08:00 12/20/24 08:00 12/20/24 10:00 Temperature Pulse Rate 93 88 77 Respiratory Rate Blood Pressure Pulse Oximetry Oxygen Delivery Room Air 12/20/24 14:38 12/20/24 15:37 Temperature 98.4 F Pulse Rate 69 89 Respiratory Rate 20 22 H Blood Pressure 188/70 H Pulse Oximetry 98 Oxygen Delivery Intake/Output Intake/Output: Intake & Output 12/17/24 12/18/24 12/19/24 12/20/24 23:59 23:59 23:59 23:59 Intake Total 2301982.8 665 Output Total 2124 Balance 2300 1982.8 -1460 Meds/Results Medications: Active Medications Generic Name Dose Route Start Last Admin Trade Name Freq PRN Reason Stop Dose Admin Acetaminophen 650 mg 12/18/24 18:45 12/19/24 08:17 Acetaminophen 325 Mg Tablet PO 650 mg Q4H PRN Administration Mild Pain (1-3) or Fever Amlodipine Besylate 10 mg 12/19/24 14:40 12/20/24 09:30 Amlodipine Besylate 10 Mg Tablet PO 10 mg DAILY FADUMO Administration Aspirin 81 mg 12/19/24 09:00 12/20/24 09:29 Aspirin 81 Mg Enteric Tablet PO 81 mg QAM FADUMO Administration Atorvastatin Calcium 40 mg 12/21/24 09:00 Atorvastatin 40 Mg Tablet PO DAILY FADUMO Benzonatate 100 mg 12/19/24 22:43 12/19/24 23:25 Benzonatate 100 Mg Capsule PO 100 mg TID PRN Administration cough Budesonide 0.5 mg 12/19/24 20:00 12/20/24 07:39 Budesonide Respule Neb 0.5 Mg/2 Ml Amp INHALATION 0.5 mg Q12HRT FADUMO Administration Clopidogrel Bisulfate 75 mg 12/21/24 09:00 Clopidogrel Bisulfate 75 Mg Tablet PO DAILY FADUMO Enoxaparin Sodium 40 mg 12/20/24 09:00 12/20/24 09:38 Enoxaparin 40 Mg/0.4 Ml Syringe SUB-Q Not Given DAILY FADUMO Famotidine 20 mg 12/18/24 21:00 12/20/24 09:30 Famotidine 20 Mg/2 Ml Vial IV PUSH 20 mg Q12HR FADUMO Administration Hydralazine HCl 10 mg 12/18/24 18:42 12/18/24 20:17 Hydralazine Hcl 20 Mg/Ml Vial IV PUSH 10 mg Q6H PRN Administration Blood Pressure - High Hydrochlorothiazide 12.5 mg 12/20/24 10:30 12/20/24 11:37 Hydrochlorothiazide 12.5 Mg Capsule PO 12.5 mg QAM FADUMO Administration Cefepime HCl 2 gm in 50 mls @ 100 mls/hr 12/19/24 06:00 12/20/24 06:11 Maxipime 2 Gm/Ns 50 Ml IVPB 100 mls/hr Q12H FADUMO Administration Azithromycin 500 mg in 250 mls @ 250 mls/hr 12/19/24 06:00 12/20/24 06:11 Zithromax IVPB 250 mls/hr Q24H FADUMO Administration Ipratropium [place] 0.5 mg 12/18/24 18:38 12/18/24 21:55 Ipratropium Br 0.02% Inh Soln 0.5 Mg/2.5 Ml Vial INHALATION 0.5 mg Q6HRT PRN Administration Shortness Of Breath Or Wheezing Ipratropium [place] 0.5 mg 12/19/24 04:00 12/20/24 14:18 Ipratropium Br 0.02% Inh Soln 0.5 Mg/2.5 Ml Vial INHALATION 0.5 mg Q4HRT [facility] Administration Isosorbide Mononitrate 10 mg 12/20/24 16:05 Isosorbide Mononitrate 10 Mg Tablet PO BID@0900,1600 [facility] Levalbuterol HCl 0.63 mg 12/18/24 18:38 12/18/24 21:55 Levalbuterol Neb 1.25 Mg/3 Ml INHALATION 0.63 mg Q6HRT PRN Administration Shortness Of Breath Or Wheezing Levalbuterol HCl 0.63 mg 12/19/24 04:00 12/20/24 14:18 Levalbuterol Neb 1.25 Mg/3 Ml INHALATION 0.63 mg Q4HRT [facility] Administration Ondansetron HCl 4 mg 12/18/24 18:45 Ondansetron Inj 4 Mg/2 Ml Vial IV PUSH Q4H PRN Nausea Oseltamivir Phosphate 30 mg 12/18/24 21:00 12/20/24 09:30 Oseltamivir Phosphate 30 Mg Capsule PO 12/23/24 20:59 30 mg Q12HR FADUMO Administration Pantoprazole Sodium 40 mg 12/19/24 21:00 12/20/24 09:29 Pantoprazole 40 Mg Tablet PO 40 mg Q12HR FADUMO Administration Perflutren Lipid Microsphere 0 ml 12/18/24 15:23 Perflutren Lipid Microspheres 1.5 Ml Vial Diluted To 10 Ml Total Volume IV PUSH 12/21/24 15:23 ONCE PRN adequate visualization Protocol Prednisone 20 mg/ Prednisone 30 mg 12/20/24 08:00 12/20/24 09:29 10 mg PO 30 mg DAILY@0800 FADUMO Administration Fluticasone/Salmeterol 2 puff 12/20/24 20:00 Fluticasone/Salmeterol 115-21 Mcg Inhaler 1 Puff INHALATION Q12HRT [facility] Radiology Results: ITS Impressions Chest X-Ray 12/18/24 15:26 IMPRESSION: Chronic interstitial change without focal infiltrate or effusion. Head CT 12/18/24 16:44 IMPRESSION: 1. Old infarcts in the left thalamus and right basal ganglia. 2. Stable moderate nonspecific cerebral white matter disease, which likely represents chronic small vessel ischemic disease. Chest/Abdomen/Pelvis CTA 12/18/24 16:46 IMPRESSION: 1. Bilateral renal artery stenosis. Mild left kidney atrophy. 2. Moderate emphysema. 3. Wall thickening of the distal esophagus, likely esophagitis. 4. Mild mediastinal and bilateral hilar lymphadenopathy, likely reactive. Modified Barium Swallow 12/19/24 14:36 IMPRESSION: 1. No laryngeal penetration or aspiration. 2. Please refer to the speech therapy report for recommendations. Labs Labs: Laboratory Results - last 24 hr 12/19/24 17:16 Troponin I 0.332 H*
--- NOTE | 2024-12-20 17:15 | PC.NURSE ---
This patient, Ivis Perla, was received from [facility] on 12/20/24 at 1715. Patient/family oriented to unit policies and routines.
--- NOTE | 2024-12-20 17:37 | PC.NURSE ---
[facility] transfer center called. Dr. Lopez is accepting physician at [facility]. RN updated transfer center on vitals, isolation status, and labs. They will call back with a bed.
[2024-12-20] MEDS: ISOSORBIDE MONONITRATE 10 MG TABLET PO (17:43)
[2024-12-20] MEDS: FLUTICASONE/SALMETEROL 115-21 MCG INHALER 1 PUFF 2 PUFF INHALATION (21:02)
[2024-12-21] VITALS (15 sets, daily range): BP systolic 118–180; BP diastolic 69–79; PULSE 66–86; RESP 18–20; TEMP 36.2–37; O2SAT 95–99
[2024-12-21] MEDS: BENZONATATE 100 MG CAPSULE PO ×2 (00:20→20:29)
[2024-12-21] MEDS: IPRATROPIUM BR 0.02% INH SOLN 0.5 MG/2.5 ML VIAL INHALATION ×5 (00:21→19:58)
[2024-12-21] MEDS: LEVALBUTEROL NEB 1.25 MG/3 ML 0.63 MG INHALATION ×5 (00:21→19:58)
[2024-12-21] MEDS: AZITHROMYCIN 500 MG/NS 250 ML 500 MG/250 ML BAG 250 MG IVPB (05:13)
[2024-12-21] MEDS: CEFEPIME 2 GM/NS 50 ML 2 GM/50 ML BAG IVPB (05:13)
[2024-12-21] MEDS: BUDESONIDE RESPULE NEB 0.5 MG/2 ML AMP INHALATION ×2 (09:05→19:57)
[2024-12-21] MEDS: PANTOPRAZOLE 40 MG TABLET PO ×2 (09:55→20:29)
[2024-12-21] MEDS: ASPIRIN 81 MG ENTERIC TABLET PO (09:55)
[2024-12-21] MEDS: ISOSORBIDE MONONITRATE 10 MG TABLET PO ×2 (09:55→17:25)
[2024-12-21] MEDS: ATORVASTATIN 40 MG TABLET PO (09:55)
[2024-12-21] MEDS: CLOPIDOGREL BISULFATE 75 MG TABLET PO (09:55)
[2024-12-21] MEDS: amLODIPine BESYLATE 10 MG TABLET PO (09:55)
[2024-12-21] MEDS: hydroCHLOROthiazide 12.5 MG CAPSULE PO (09:55)
[2024-12-21] MEDS: predniSONE 20 MG, predniSONE 10 MG 30 MG PO (09:55)
[2024-12-21] MEDS: OSELTAMIVIR PHOSPHATE 30 MG CAPSULE PO ×2 (09:55→20:29)
[2024-12-21] MEDS: FAMOTIDINE 20 MG/2 ML VIAL IV PUSH (09:57)
[2024-12-21] MEDS: IRON SUCROSE COMPLEX 400 MG, IRON SUCROSE COMPLEX 100 MG in SODIUM CHLORIDE 0.9% IV 250 ML 78.57 MG IVPB (09:59)
--- NOTE | 2024-12-21 12:32 | P.PNIM_ITS ---
Progress Note: A&P Assessment and Plan (1) Influenza A: Code(s): J10.1 - Influenza due to other identified influenza virus with other respiratory manifestations Status: Inactive (2) Cigarette smoker: Code(s): F17.210 - Nicotine dependence, cigarettes, uncomplicated Status: Acute (3) Hypertensive urgency: Code(s): I16.0 - Hypertensive urgency Status: Acute (4) Elevated troponin: Code(s): R79.89 - Other specified abnormal findings of blood chemistry Status: Acute (5) Lactic acidosis: Code(s): E87.20 - Acidosis, unspecified Status: Acute (6) Sepsis: Code(s): A41.9 - Sepsis, unspecified organism Status: Acute (7) Transient alteration of awareness: Code(s): R40.4 - Transient alteration of awareness Status: Acute (8) Respiratory distress: Code(s): R06.03 - Acute respiratory distress Status: Acute Plan Influenza a -Tamiflu 30 mg p.o. b.i.d. has been started. Continue Acute COPD exacerbation was on BiPAP Contineu bronchodilators and Inhaled steroid now on room air Acute hypoxemic respiratory failure Was on bipap resolved now on room air Hypertensive urgency -bilateral renal artery stenosis with mild left kidney atrophy identified on CTA abdomen pelvis. Discontinued ARBs due to renal artery stenosis Continue Amlodipine, HCTZ and Isosorbide dinitrate, still poorly controlled awaiting transfer to [place] for vascular intervention Bilateral Renal artery stenosis Awaiting transfer to [place] for vascular surgery Active tobacco abuse -counseling provided. 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 Currently has no symptoms. Continue to monitor. 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 MRI demonstrated right thalamus and internal capsule stroke. Restart [employer] aspirin clopidogrel and statin. Significant left carotid artery stenosis CTA from 12/07 transfer to [place] for vascular intervention DVT prophylaxis on Sq Lovenox Awaiting transfer to [place] for vascular surgery intervention Subjective Date/time seen: 12/21/24 12:32 Interval history: comfortable at bedside pending transfer to [facility] Review of Systems Review of Systems: All systems reviewed & are unremarkable except as noted in HPI and below (HPI) Exam Const: General: comfortable and no acute distress Eyes: Pupils: Equal, round and reactive pupils present Neck: Neck: supple Resp: Other: Slight expiratory wheeze Cardio: Rate: regular rate Rhythm: regular rhythm Neuro: Cranial nerves: Yes Equal, round and reactive pupils present Other: Gait exam deferred. Moves all 4 extremities spontaneously, 5/5 strength x4 Objective Data Vital Signs Vital Signs: Vital Signs - 24 hr 12/20/24 14:38 12/20/24 15:37 12/20/24 21:02 Temperature 98.4 F Pulse Rate 69 89 Respiratory Rate 20 22 H Blood Pressure 188/70 H Pulse Oximetry 98 99 Oxygen Delivery Room Air 12/20/24 21:02 12/20/24 21:22 12/20/24 22:00 Temperature 97.3 F L Pulse Rate 66 60 66 Respiratory Rate 20 20 20 Blood Pressure 157/73 H Pulse Oximetry 100 Oxygen Delivery 12/21/24 00:00 12/21/24 00:23 12/21/24 04:39 Temperature Pulse Rate 66 66 66 Respiratory Rate 18 18 18 Blood Pressure Pulse Oximetry Oxygen Delivery 12/21/24 04:54 12/21/24 06:00 12/21/24 09:05 Temperature 98.0 F Pulse Rate 66 86 Respiratory Rate 18 20 Blood Pressure 180/69 H Pulse Oximetry 98 96 Oxygen Delivery Room Air 12/21/24 09:05 Temperature Pulse Rate 72 Respiratory Rate 18 Blood Pressure Pulse Oximetry Oxygen Delivery Intake/Output Intake/Output: Intake & Output 12/18/24 12/19/24 12/20/24 12/21/24 23:59 23:59 23:59 23:59 Intake Total 22998 1135 920 Output Total 2124 Balance 2300 1982.8 -990 920 Meds/Results Medications: Active Medications Generic Name Dose Route Start Last Admin Trade Name Freq PRN Reason Stop Dose Admin Acetaminophen 650 mg 12/18/24 18:45 12/19/24 08:17 Acetaminophen 325 Mg Tablet PO 650 mg Q4H PRN Administration Mild Pain (1-3) or Fever Amlodipine Besylate 10 mg 12/19/24 14:40 12/21/24 09:55 Amlodipine Besylate 10 Mg Tablet PO 10 mg DAILY FADUMO Administration Aspirin 81 mg 12/19/24 09:00 12/21/24 09:55 Aspirin 81 Mg Enteric Tablet PO 81 mg QAM [facility] Administration Atorvastatin Calcium 40 mg 12/21/24 09:00 12/21/24 09:55 Atorvastatin 40 Mg Tablet PO 40 mg DAILY [facility]AD[facility] Administration Benzonatate 100 mg 12/19/24 22:43 12/21/24 00:20 Benzonatate 100 Mg Capsule PO 100 mg TID PRN Administration cough Budesonide 0.5 mg 12/19/24 20:00 12/21/24 09:05 Budesonide Respule Neb 0.5 Mg/2 Ml Amp INHALATION 0.5 mg Q12HRT [facility] Administration Clopidogrel Bisulfate 75 mg 12/21/24 09:00 12/21/24 09:55 Clopidogrel Bisulfate 75 Mg Tablet PO 75 mg DAILY [facility]AD[facility] Administration Enoxaparin Sodium 40 mg 12/20/24 09:00 12/21/24 09:57 Enoxaparin 40 Mg/0.4 Ml Syringe SUB-Q Not Given DAILY [facility]ADUMO Famotidine 20 mg 12/18/24 21:00 12/21/24 09:57 Famotidine 20 Mg/2 Ml Vial IV PUSH 20 mg Q12HR [facility] Administration Hydralazine HCl 10 mg 12/18/24 18:42 12/18/24 20:17 Hydralazine Hcl 20 Mg/Ml Vial IV PUSH 10 mg Q6H PRN Administration Blood Pressure - High Hydrochlorothiazide 12.5 mg 12/20/24 10:30 12/21/24 09:55 Hydrochlorothiazide 12.5 Mg Capsule PO 12.5 mg QAM [facility] Administration Cefepime HCl 2 gm in 50 mls @ 100 mls/hr 12/19/24 06:00 12/21/24 05:43 Maxipime 2 Gm/Ns 50 Ml IVPB Infused Q12H [facility] Infusion Azithromycin 500 mg in 250 mls @ 250 mls/hr 12/19/24 06:00 12/21/24 06:13 Zithromax IVPB Infused Q24H [facility] Infusion Ipratropium Saline 0.5 mg 12/18/24 18:38 12/18/24 21:55 Ipratropium Br 0.02% Inh Soln 0.5 Mg/2.5 Ml Vial INHALATION 0.5 mg Q6HRT PRN Administration Shortness Of Breath Or Wheezing Ipratropium Saline 0.5 mg 12/21/24 14:00 Ipratropium Br 0.02% Inh Soln 0.5 Mg/2.5 Ml Vial INHALATION Q6HRT [facility] Isosorbide Mononitrate 10 mg 12/20/24 16:05 12/21/24 09:55 Isosorbide Mononitrate 10 Mg Tablet PO 10 mg BID@0900,1600 [facility] Administration Levalbuterol HCl 0.63 mg 12/18/24 18:38 12/18/24 21:55 Levalbuterol Neb 1.25 Mg/3 Ml INHALATION 0.63 mg Q6HRT PRN Administration Shortness Of Breath Or Wheezing Levalbuterol HCl 0.63 mg 12/21/24 14:00 Levalbuterol Neb 1.25 Mg/3 Ml INHALATION Q6HRT [facility] Ondansetron HCl 4 mg 12/18/24 18:45 Ondansetron Inj 4 Mg/2 Ml Vial IV PUSH Q4H PRN Nausea Oseltamivir Phosphate 30 mg 12/18/24 21:00 12/21/24 09:55 Oseltamivir Phosphate 30 Mg Capsule PO 12/23/24 20:59 30 mg Q12HR [facility] Administration Pantoprazole Sodium 40 mg 12/19/24 21:00 12/21/24 09:55 Pantoprazole 40 Mg Tablet PO 40 mg Q12HR [facility] Administration Perflutren Lipid Microsphere 0 ml 12/18/24 15:23 Perflutren Lipid Microspheres 1.5 Ml Vial Diluted To 10 Ml Total Volume IV PUSH 12/21/24 15:23 ONCE PRN adequate visualization Protocol Prednisone 20 mg/ Prednisone 30 mg 12/20/24 08:00 12/21/24 09:55 10 mg PO 30 mg DAILY@0800 [facility] Administration Fluticasone/Salmeterol 2 puff 12/20/24 20:00 12/21/24 09:14 Fluticasone/Salmeterol 115-21 Mcg Inhaler 1 Puff INHALATION Not Given Q12HRT [facility] Radiology Results: ITS Impressions Chest X-Ray 12/18/24 15:26 IMPRESSION: Chronic interstitial change without focal infiltrate or effusion. Head CT 12/18/24 16:44 IMPRESSION: 1. Old infarcts in the left thalamus and right basal ganglia. 2. Stable moderate nonspecific cerebral white matter disease, which likely represents chronic small vessel ischemic disease. Chest/Abdomen/Pelvis CTA 12/18/24 16:46 IMPRESSION: 1. Bilateral renal artery stenosis. Mild left kidney atrophy. 2. Moderate emphysema. 3. Wall thickening of the distal esophagus, likely esophagitis. 4. Mild mediastinal and bilateral hilar lymphadenopathy, likely reactive. Modified Barium Swallow 12/19/24 14:36 IMPRESSION: 1. No laryngeal penetration or aspiration. 2. Please refer to the speech therapy report for recommendations.
--- NOTE | 2024-12-21 17:39 | PC.NURSE ---
Patient is refusing 1800 IV antibiotic stating his arm hurts. IV site appears to be tender but patient will not allow IV removal or new IV to be placed.
[2024-12-22] VITALS (12 sets, daily range): BP systolic 150–188; BP diastolic 68–83; PULSE 69–91; RESP 18–20; TEMP 36.2–36.4; O2SAT 95–100
[2024-12-22] MEDS: IPRATROPIUM BR 0.02% INH SOLN 0.5 MG/2.5 ML VIAL INHALATION ×4 (02:55→20:26)
[2024-12-22] MEDS: LEVALBUTEROL NEB 1.25 MG/3 ML 0.63 MG INHALATION ×4 (02:55→20:26)
[2024-12-22] MEDS: BENZONATATE 100 MG CAPSULE PO ×3 (03:44→15:11)
[2024-12-22] MEDS: CEFEPIME 2 GM/NS 50 ML 2 GM/50 ML BAG IVPB (05:06)
[2024-12-22] MEDS: AZITHROMYCIN 500 MG/NS 250 ML 500 MG/250 ML BAG 250 MG IVPB (05:11)
[2024-12-22] MEDS: ACETAMINOPHEN 325 MG TABLET 650 MG PO ×3 (06:41→20:45)
[2024-12-22] MEDS: BUDESONIDE RESPULE NEB 0.5 MG/2 ML AMP INHALATION ×2 (07:53→20:26)
[2024-12-22] MEDS: FAMOTIDINE 20 MG/2 ML VIAL IV PUSH ×2 (08:50→20:45)
[2024-12-22] MEDS: ISOSORBIDE MONONITRATE 10 MG TABLET PO (08:50)
[2024-12-22] MEDS: ASPIRIN 81 MG ENTERIC TABLET PO (08:50)
[2024-12-22] MEDS: ATORVASTATIN 40 MG TABLET PO (08:51)
[2024-12-22] MEDS: predniSONE 20 MG, predniSONE 10 MG 30 MG PO (08:51)
[2024-12-22] MEDS: OSELTAMIVIR PHOSPHATE 30 MG CAPSULE PO ×2 (08:51→20:46)
[2024-12-22] MEDS: amLODIPine BESYLATE 10 MG TABLET PO (08:52)
[2024-12-22] MEDS: PANTOPRAZOLE 40 MG TABLET PO ×2 (08:52→20:46)
[2024-12-22] MEDS: hydroCHLOROthiazide 12.5 MG CAPSULE PO (08:52)
[2024-12-22] MEDS: CLOPIDOGREL BISULFATE 75 MG TABLET PO (08:52)
[2024-12-22] MEDS: ENOXAPARIN 40 MG/0.4 ML SYRINGE SUB-Q (08:53)
--- NOTE | 2024-12-22 13:40 | PCNFU ---
Nutrition Follow-Up Complete: Potential for inadequate oral intake related to swallowing ability as evidenced by MBSS ordered Adequate PO intake at least 75% meals - Progressing. Intakes 25-100, overall improving. Continue same goal Textures appropriate for patient needs Goal: Pt current nutrition is Heart healthy diet, Minced & moist L5. Nutrition recommendation: No nutrition recommendations. Continue current nutrition care plan and orders. Last recorded weight is 53 kg. Bowel Motility: +3 BMs 2.6.25 Labs Reviewed: No new labs since 12/19/24 Meds Noted: Prednisone, plavix, hydrochlorothiazide, zofran Skin: No skin issues Additional Notes: Awaiting transfer for vascular. intakes vary 25-100% meals. Family brought in food. Continue to monitor. Agree with orders. Monitoring swallowing ability, intakes, weights, labs, out put, meds, plan of care Follow up in 3 days
--- NOTE | 2024-12-22 14:33 | PM.IMPN ---
Progress Note: A&P Assessment and Plan (1) Influenza A: Code(s): J10.1 - Influenza due to other identified influenza virus with other respiratory manifestations Status: Inactive (2) Cigarette smoker: Code(s): F17.210 - Nicotine dependence, cigarettes, uncomplicated Status: Acute (3) Hypertensive urgency: Code(s): I16.0 - Hypertensive urgency Status: Acute (4) Elevated troponin: Code(s): R79.89 - Other specified abnormal findings of blood chemistry Status: Acute (5) Lactic acidosis: Code(s): E87.20 - Acidosis, unspecified Status: Acute (6) Sepsis: Code(s): A41.9 - Sepsis, unspecified organism Status: Acute (7) Transient alteration of awareness: Code(s): R40.4 - Transient alteration of awareness Status: Acute (8) Respiratory distress: Code(s): R06.03 - Acute respiratory distress Status: Acute Plan Influenza a -Tamiflu 30 mg p.o. b.i.d. has been started. Continue Acute COPD exacerbation was on BiPAP Contineu bronchodilators and Inhaled steroid now on room air Acute hypoxemic respiratory failure Was on bipap resolved titrate Hypertensive urgency -bilateral renal artery stenosis with mild left kidney atrophy identified on CTA abdomen pelvis. Discontinued ARBs due to renal artery stenosis Continue Amlodipine, HCTZ and Isosorbide dinitrate, still poorly controlled awaiting transfer to [place] for vascular intervention awaiting call back from [facility] per family request Bilateral renal artery stenosis with mild left kidney atrophy CTA abdomen pelvis reviewed continue blood pressure control as above awaiting transfer Significant left carotid artery stenosis CTA from 12/07 awaiting transfer Active tobacco abuse -counseling provided. 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 Currently has no symptoms. Continue to monitor. 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 MRI demonstrated right thalamus and internal capsule stroke. Restart [employer] aspirin clopidogrel and statin. DVT prophylaxis on Sq Lovenox Awaiting transfer to [place] for vascular surgery intervention Awaiting call back from [facility] Patient and family refusing labs Subjective Date/time seen: 12/22/24 14:33 Interval history: comfortable at bedside pending transfer to [facility] Daughter requested transfer to [facility] for vascular intervention Transfer requested and awaiting call back Review of Systems Review of Systems: All systems reviewed & are unremarkable except as noted in HPI and below (HPI) Exam Const: General: comfortable and no acute distress Eyes: Pupils: Equal, round and reactive pupils present Neck: Neck: supple Resp: Other: Slight expiratory wheeze Cardio: Rate: regular rate Rhythm: regular rhythm Neuro: Cranial nerves: Yes Equal, round and reactive pupils present Other: Gait exam deferred. Moves all 4 extremities spontaneously, 5/5 strength x4 Objective Data Vital Signs Vital Signs: Vital Signs - 24 hr 12/21/24 15:30 12/21/24 15:32 12/21/24 15:45 Temperature 97.5 F L 98.6 F Pulse Rate 81 86 76 Respiratory Rate 18 18 18 Blood Pressure 118/77 167/79 H Pulse Oximetry 95 97 Oxygen Delivery 12/21/24 15:57 12/21/24 19:56 12/21/24 19:58 Temperature 97.2 F L Pulse Rate 66 79 Respiratory Rate 18 20 Blood Pressure 178/71 H Pulse Oximetry 99 99 Oxygen Delivery Room Air 12/21/24 20:00 12/21/24 20:00 12/21/24 20:22 Temperature Pulse Rate 79 84 Respiratory Rate 20 20 Blood Pressure Pulse Oximetry Oxygen Delivery Room Air 12/22/24 03:07 12/22/24 03:20 12/22/24 06:00 Temperature 97.1 F L Pulse Rate 76 74 79 Respiratory Rate 18 18 20 Blood Pressure 188/74 H Pulse Oximetry 99 Oxygen Delivery 12/22/24 07:57 12/22/24 07:57 12/22/24 08:13 Temperature Pulse Rate 69 74 Respiratory Rate 18 18 Blood Pressure Pulse Oximetry 95 Oxygen Delivery Room Air 12/22/24 14:06 12/22/24 14:17 Temperature Pulse Rate 79 85 Respiratory Rate 18 18 Blood Pressure Pulse Oximetry Oxygen Delivery Intake/Output Intake/Output: Intake & Output 12/19/24 12/20/24 12/21/24 12/22/24 23:59 23:59 23:59 23:59 Intake Total 1982.8 1135 1800 1380 Output Total 2124 Balance 8 -990 1800 1380 Meds/Results Medications: Active Medications Generic Name Dose Route Start Last Admin Trade Name Freq PRN Reason Stop Dose Admin Acetaminophen 650 mg 12/18/24 18:45 12/22/24 10:28 Acetaminophen 325 Mg Tablet PO 650 mg Q4H PRN Administration Mild Pain (1-3) or Fever Amlodipine Besylate 10 mg 12/19/24 14:40 12/22/24 08:52 Amlodipine Besylate 10 Mg Tablet PO 10 mg DAILY [facility] Administration Aspirin 81 mg 12/19/24 09:00 12/22/24 08:50 Aspirin 81 Mg Enteric Tablet PO 81 mg QAM [facility] Administration Atorvastatin Calcium 40 mg 12/21/24 09:00 12/22/24 08:51 Atorvastatin 40 Mg Tablet PO 40 mg DAILY [facility] Administration Benzonatate 100 mg 12/19/24 22:43 12/22/24 09:46 Benzonatate 100 Mg Capsule PO 100 mg TID PRN Administration cough Budesonide 0.5 mg 12/19/24 20:00 12/22/24 07:53 Budesonide Respule Neb 0.5 Mg/2 Ml Amp INHALATION 0.5 mg Q12HRT [facility] Administration Clopidogrel Bisulfate 75 mg 12/21/24 09:00 12/22/24 08:52 Clopidogrel Bisulfate 75 Mg Tablet PO 75 mg DAILY [facility] Administration Enoxaparin Sodium 40 mg 12/20/24 09:00 12/22/24 08:53 Enoxaparin 40 Mg/0.4 Ml Syringe SUB-Q 40 mg DAILY [facility] Administration Famotidine 20 mg 12/18/24 21:00 12/22/24 08:50 Famotidine 20 Mg/2 Ml Vial IV PUSH 20 mg Q12HR [facility] Administration Hydralazine HCl 10 mg 12/18/24 18:42 12/18/24 20:17 Hydralazine Hcl 20 Mg/Ml Vial IV PUSH 10 mg Q6H PRN Administration Blood Pressure - High Hydrochlorothiazide 12.5 mg 12/20/24 10:30 12/22/24 08:52 Hydrochlorothiazide 12.5 Mg Capsule PO 12.5 mg QAM [facility] Administration Ipratropium [place] 0.5 mg 12/18/24 18:38 12/18/24 21:55 Ipratropium Br 0.02% Inh Soln 0.5 Mg/2.5 Ml Vial INHALATION 0.5 mg Q6HRT PRN Administration Shortness Of Breath Or Wheezing Ipratropium [place] 0.5 mg 12/21/24 14:00 12/22/24 14:05 Ipratropium Br 0.02% Inh Soln 0.5 Mg/2.5 Ml Vial INHALATION 0.5 mg Q6HRT [facility] Administration Isosorbide Mononitrate 10 mg 12/20/24 16:05 12/22/24 08:50 Isosorbide Mononitrate 10 Mg Tablet PO 10 mg BID@0900,1600 [facility] Administration Levalbuterol HCl 0.63 mg 12/18/24 18:38 12/18/24 21:55 Levalbuterol Neb 1.25 Mg/3 Ml INHALATION 0.63 mg Q6HRT PRN Administration Shortness Of Breath Or Wheezing Levalbuterol HCl 0.63 mg 12/21/24 14:00 12/22/24 14:05 Levalbuterol Neb 1.25 Mg/3 Ml INHALATION 0.63 mg Q6HRT [facility] Administration Levofloxacin 750 mg 12/22/24 16:00 Levofloxacin 750 Mg Tablet PO 12/24/24 16:01 Q48H [facility] Ondansetron HCl 4 mg 12/18/24 18:45 Ondansetron Inj 4 Mg/2 Ml Vial IV PUSH Q4H PRN Nausea Oseltamivir Phosphate 30 mg 12/18/24 21:00 12/22/24 08:51 Oseltamivir Phosphate 30 Mg Capsule PO 12/23/24 20:59 30 mg Q12HR [facility] Administration Pantoprazole Sodium 40 mg 12/19/24 21:00 12/22/24 08:52 Pantoprazole 40 Mg Tablet PO 40 mg Q12HR [facility] Administration Prednisone 20 mg/ Prednisone 30 mg 12/20/24 08:00 12/22/24 08:51 10 mg PO 30 mg DAILY@0800 [facility] Administration Fluticasone/Salmeterol 2 puff 12/20/24 20:00 12/22/24 07:53 Fluticasone/Salmeterol 115-21 Mcg Inhaler 1 Puff INHALATION Not Given Q12HRT [facility] Radiology Results: ITS Impressions Chest X-Ray 12/18/24 15:26 IMPRESSION: Chronic interstitial change without focal infiltrate or effusion. Head CT 12/18/24 16:44 IMPRESSION: 1. Old infarcts in the left thalamus and right basal ganglia. 2. Stable moderate nonspecific cerebral white matter disease, which likely represents chronic small vessel ischemic disease. Chest/Abdomen/Pelvis CTA 12/18/24 16:46 IMPRESSION: 1. Bilateral renal artery stenosis. Mild left kidney atrophy. 2. Moderate emphysema. 3. Wall thickening of the distal esophagus, likely esophagitis. 4. Mild mediastinal and bilateral hilar lymphadenopathy, likely reactive. Modified Barium Swallow 12/19/24 14:36 IMPRESSION: 1. No laryngeal penetration or aspiration. 2. Please refer to the speech therapy report for recommendations.
--- NOTE | 2024-12-22 14:49 | PM.IMPN ---
Progress Note: A&P Assessment and Plan (1) Influenza A: Code(s): J10.1 - Influenza due to other identified influenza virus with other respiratory manifestations Status: Inactive (2) Cigarette smoker: Code(s): F17.210 - Nicotine dependence, cigarettes, uncomplicated Status: Acute (3) Hypertensive urgency: Code(s): I16.0 - Hypertensive urgency Status: Acute (4) Elevated troponin: Code(s): R79.89 - Other specified abnormal findings of blood chemistry Status: Acute (5) Lactic acidosis: Code(s): E87.20 - Acidosis, unspecified Status: Acute (6) Sepsis: Code(s): A41.9 - Sepsis, unspecified organism Status: Acute (7) Transient alteration of awareness: Code(s): R40.4 - Transient alteration of awareness Status: Acute (8) Respiratory distress: Code(s): R06.03 - Acute respiratory distress Status: Acute Plan Influenza a -Tamiflu 30 mg p.o. b.i.d. has been started. Continue Acute COPD exacerbation was on BiPAP Contineu bronchodilators and Inhaled steroid now on room air Acute hypoxemic respiratory failure Was on bipap resolved titrate Hypertensive urgency -bilateral renal artery stenosis with mild left kidney atrophy identified on CTA abdomen pelvis. Discontinued ARBs due to renal artery stenosis Continue Amlodipine, HCTZ and Isosorbide dinitrate, still poorly controlled awaiting transfer to [place] for vascular intervention awaiting call back from [facility] per family request Bilateral renal artery stenosis with mild left kidney atrophy CTA abdomen pelvis reviewed continue blood pressure control as above awaiting transfer Significant left carotid artery stenosis CTA from 12/07 awaiting transfer Active tobacco abuse -counseling provided. 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 Currently has no symptoms. Continue to monitor. 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 MRI demonstrated right thalamus and internal capsule stroke. 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 Iron deficiency anemia Hb 8.5 and Isat 3 patient received 1000mg IV Iron he has refused lab draw since the 12/19/09 DVT prophylaxis on Sq Lovenox Awaiting transfer to [place] for vascular surgery intervention Awaiting call back from [facility] Patient and family refusing labs Subjective Date/time seen: 12/22/24 14:49 Interval history: comfortable at bedside pending transfer to [facility] Daughter requested transfer to [facility] for vascular intervention Transfer requested and awaiting call back Review of Systems Review of Systems: All systems reviewed & are unremarkable except as noted in HPI and below (HPI) Exam Const: General: comfortable and no acute distress Eyes: Pupils: Equal, round and reactive pupils present Neck: Neck: supple Resp: Other: Slight expiratory wheeze Cardio: Rate: regular rate Rhythm: regular rhythm Neuro: Cranial nerves: Yes Equal, round and reactive pupils present Other: Gait exam deferred. Moves all 4 extremities spontaneously, 5/5 strength x4 Objective Data Vital Signs Vital Signs: Vital Signs - 24 hr 12/21/24 15:30 12/21/24 15:32 12/21/24 15:45 Temperature 97.5 F L 98.6 F Pulse Rate 81 86 76 Respiratory Rate 18 18 18 Blood Pressure 118/77 167/79 H Pulse Oximetry 95 97 Oxygen Delivery 12/21/24 15:57 12/21/24 19:56 12/21/24 19:58 Temperature 97.2 F L Pulse Rate 66 79 Respiratory Rate 18 20 Blood Pressure 178/71 H Pulse Oximetry 99 99 Oxygen Delivery Room Air 12/21/24 20:00 12/21/24 20:00 12/21/24 20:22 Temperature Pulse Rate 79 84 Respiratory Rate 20 20 Blood Pressure Pulse Oximetry Oxygen Delivery Room Air 12/22/24 03:07 12/22/24 03:20 12/22/24 06:00 Temperature 97.1 F L Pulse Rate 76 74 79 Respiratory Rate 18 18 20 Blood Pressure 188/74 H Pulse Oximetry 99 Oxygen Delivery 12/22/24 07:57 12/22/24 07:57 12/22/24 08:13 Temperature Pulse Rate 69 74 Respiratory Rate 18 18 Blood Pressure Pulse Oximetry 95 Oxygen Delivery Room Air 12/22/24 14:06 12/22/24 14:17 Temperature Pulse Rate 79 85 Respiratory Rate 18 18 Blood Pressure Pulse Oximetry Oxygen Delivery Intake/Output Intake/Output: Intake & Output 12/19/24 12/20/24 12/21/24 12/22/24 23:59 23:59 23:59 23:59 Intake Total 1982.8 1135 1800 1380 Output Total 2125 Balance 1982.8 -990 1800 1380 Meds/Results Medications: Active Medications Generic Name Dose Route Start Last Admin Trade Name Freq PRN Reason Stop Dose Admin Acetaminophen 650 mg 12/18/24 18:45 12/22/24 10:28 Acetaminophen 325 Mg Tablet PO 650 mg Q4H PRN Administration Mild Pain (1-3) or Fever Amlodipine Besylate 10 mg 12/19/24 14:40 12/22/24 08:52 Amlodipine Besylate 10 Mg Tablet PO 10 mg DAILY FADUMO Administration Aspirin 81 mg 12/19/24 09:00 12/22/24 08:50 Aspirin 81 Mg Enteric Tablet PO 81 mg QAM FADUMO Administration Atorvastatin Calcium 40 mg 12/21/24 09:00 12/22/24 08:51 Atorvastatin 40 Mg Tablet PO 40 mg DAILY FADUMO Administration Benzonatate 100 mg 12/19/24 22:43 12/22/24 09:46 Benzonatate 100 Mg Capsule PO 100 mg TID PRN Administration cough Budesonide 0.5 mg 12/19/24 20:00 12/22/24 07:53 Budesonide Respule Neb 0.5 Mg/2 Ml Amp INHALATION 0.5 mg Q12HRT FADUMO Administration Clopidogrel Bisulfate 75 mg 12/21/24 09:00 12/22/24 08:52 Clopidogrel Bisulfate 75 Mg Tablet PO 75 mg DAILY FADUMO Administration Enoxaparin Sodium 40 mg 12/20/24 09:00 12/22/24 08:53 Enoxaparin 40 Mg/0.4 Ml Syringe SUB-Q 40 mg DAILY FADUMO Administration Famotidine 20 mg 12/18/24 21:00 12/22/24 08:50 Famotidine 20 Mg/2 Ml Vial IV PUSH 20 mg Q12HR FADUMO Administration Hydralazine HCl 10 mg 12/18/24 18:42 12/18/24 20:17 Hydralazine Hcl 20 Mg/Ml Vial IV PUSH 10 mg Q6H PRN Administration Blood Pressure - High Hydrochlorothiazide 12.5 mg 12/20/24 10:30 12/22/24 08:52 Hydrochlorothiazide 12.5 Mg Capsule PO 12.5 mg QAM [facility] Administration Ipratropium [place] 0.5 mg 12/18/24 18:38 12/18/24 21:55 Ipratropium Br 0.02% Inh Soln 0.5 Mg/2.5 Ml Vial INHALATION 0.5 mg Q6HRT PRN Administration Shortness Of Breath Or Wheezing Ipratropium [place] 0.5 mg 12/21/24 14:00 12/22/24 14:05 Ipratropium Br 0.02% Inh Soln 0.5 Mg/2.5 Ml Vial INHALATION 0.5 mg Q6HRT [facility] Administration Isosorbide Mononitrate 30 mg 12/22/24 14:40 Isosorbide Mononitrate 30 Mg [facility]h [facility] [place] 0.63 mg 12/18/24 18:38 12/18/24 21:55 Levalbuterol Neb 1.25 Mg/3 Ml INHALATION 0.63 mg Q6HRT PRN Administration Shortness Of Breath Or Wheezing Levalbuterol HCl 0.63 mg 12/21/24 14:00 12/22/24 14:05 Levalbuterol Neb 1.25 Mg/3 Ml INHALATION 0.63 mg Q6HRT [facility] Administration Levofloxacin 750 mg 12/22/24 16:00 Levofloxacin 750 Mg Tablet PO 12/24/24 16:01 Q48H [facility] Ondansetron HCl 4 mg 12/18/24 18:45 Ondansetron Inj 4 Mg/2 Ml Vial IV PUSH Q4H PRN Nausea Oseltamivir Phosphate 30 mg 12/18/24 21:00 12/22/24 08:51 Oseltamivir Phosphate 30 Mg Capsule PO 12/23/24 20:59 30 mg Q12HR [facility] Administration Pantoprazole Sodium 40 mg 12/19/24 21:00 12/22/24 08:52 Pantoprazole 40 Mg Tablet PO 40 mg Q12HR [facility] Administration Prednisone 20 mg/ Prednisone 30 mg 12/20/24 08:00 12/22/24 08:51 10 mg PO 30 mg DAILY@0800 [facility] Administration Fluticasone/Salmeterol 2 puff 12/20/24 20:00 12/22/24 07:53 Fluticasone/Salmeterol 115-21 Mcg Inhaler 1 Puff INHALATION Not Given Q12HRT [facility] Radiology Results: ITS Impressions Chest X-Ray 12/18/24 15:26 IMPRESSION: Chronic interstitial change without focal infiltrate or effusion. Head CT 12/18/24 16:44 IMPRESSION: 1. Old infarcts in the left thalamus and right basal ganglia. 2. Stable moderate nonspecific cerebral white matter disease, which likely represents chronic small vessel ischemic disease. Chest/Abdomen/Pelvis CTA 12/18/24 16:46 IMPRESSION: 1. Bilateral renal artery stenosis. Mild left kidney atrophy. 2. Moderate emphysema. 3. Wall thickening of the distal esophagus, likely esophagitis. 4. Mild mediastinal and bilateral hilar lymphadenopathy, likely reactive. Modified Barium Swallow 12/19/24 14:36 IMPRESSION: 1. No laryngeal penetration or aspiration. 2. Please refer to the speech therapy report for recommendations.
[2024-12-22] MEDS: ISOSORBIDE MONONITRATE 30 MG TAB.ER.24H PO (15:11)
[2024-12-22] MEDS: levoFLOXacin 750 MG TABLET PO (15:11)
[2024-12-22] MEDS: BISACODYL 5 MG TABLET EC PO (17:43)
[2024-12-23] VITALS (13 sets, daily range): BP systolic 151–192; BP diastolic 65–73; PULSE 76–96; RESP 18–20; TEMP 36.3–36.9; O2SAT 95–100
[2024-12-23] MEDS: LEVALBUTEROL NEB 1.25 MG/3 ML 0.63 MG INHALATION ×4 (02:37→21:21)
[2024-12-23] MEDS: IPRATROPIUM BR 0.02% INH SOLN 0.5 MG/2.5 ML VIAL INHALATION ×4 (02:37→21:21)
[2024-12-23] MEDS: ACETAMINOPHEN 325 MG TABLET 650 MG PO ×3 (02:40→19:54)
[2024-12-23] MEDS: BENZONATATE 100 MG CAPSULE PO ×3 (02:41→21:48)
--- NOTE | 2024-12-23 03:08 | PC.NURSE ---
12/23/24 0300 [facility] transfer center called nurse earlier in night and stated that their MD requested current labs on patient. Informed them that patient and family are refusing blood draws at this time. [facility] will not be able to accept patient as a transfer without updated labs. Dania BOCANEGRA was made aware and labs ordered. At 0300 informed patient and family/daughters that [facility] will not accept patient without current labs. Educated and explained to family several times that the labs must be done to get him on the wait list for a transfer to [facility] per their doctor request. Family and patient are agreeable at this time for labs. I explained to the daughters several times within the same phone call that there are no beds available at this time to [place]. The family and patient do not understand this concept. Have educated both patient and family several times why he cannot just be transferred to another facility when no beds available.
[2024-12-23 07:31] LABS: Basophils Percent Auto 0.4 % (0.2-1.2); Hematocrit 33.1 % (42.0-52.0); Hemoglobin 9.8 g/dL (14.0-18.0); Immature Granulocyte Absolute 0.25 K/mm3 (0.00-0.031); Immature Granulocyte Percent A 5.6 % (0-0.5); Lymphocytes Absolute Auto 0.78 K/mm3 (0.9-3.2); Lymphocytes Percent Auto 17.4 % (18.3-44.2); Mean Corpuscular HGB Conc 29.6 g/dl (32-36); Mean Corpuscular Hemoglobin 16.6 pg (26-34); Mean Corpuscular Volume 55.9 fl (80-100); Mean Platelet Volume 8.6 fl (7.4-10.4); Monocytes Absolute Auto 0.6 K/mm3 (0.1-0.6); Monocytes Percent Auto 12.7 % (2.6-8.5); Neutrophils Absolute Auto 2.9 K/mm3 (1.3-6.7); Neutrophils Percent Auto 63.9 % (45.5-73.1); Platelet Count Result 273 k/mm3 (150-375); Red Blood Count 5.92 M/mm3 (4.6-6.20); White Blood Count 4.5 K/mm3 (4.5-10.0)
[2024-12-23] MEDS: BUDESONIDE RESPULE NEB 0.5 MG/2 ML AMP INHALATION ×2 (07:31→21:22)
[2024-12-23 07:47] LABS: INR 0.9; Prothrombin Time 12.9 Seconds (11.1-14.7)
[2024-12-23 07:52] LABS: Alanine Aminotransferase 33 U/L (6-50); Albumin Level 3.8 g/dL (3.5-5.1); Alkaline Phosphatase 80 U/L (38-126); Anion Gap 7 mmol/L (4-12); Aspartate Amino Transferase 63 U/L (17-59); Bilirubin,Total 0.5 mg/dL (0.2-1.3); Blood Urea Nitrogen 19 mg/dL (9-20); Calcium 10.2 mg/dL (8.4-10.2); Carbon Dioxide 32 mmol/L (22-30); Chloride 93 mmol/L (98-107); Estimated CRCL calculation 40 ml/min; Estimated Glomerular Filt Rate > 60; Glucose 89 mg/dL (65-110); Phosphorus 2.4 mg/dL (2.5-4.5); Potassium 3.7 mmol/L (3.4-5.0); Sodium 132 mmol/L (137-145)
[2024-12-23 08:00] LABS: Hypochromasia 1+; Platelet Estimate Adequate (Adequate)
[2024-12-23 08:01] LABS: Anisocytosis 1+; Burr Cells 1+; Ovalocytes 1+; Target Cells 1+
[2024-12-23] MEDS: amLODIPine BESYLATE 10 MG TABLET PO (09:03)
[2024-12-23] MEDS: OSELTAMIVIR PHOSPHATE 30 MG CAPSULE PO (09:03)
[2024-12-23] MEDS: hydroCHLOROthiazide 12.5 MG CAPSULE PO (09:03)
[2024-12-23] MEDS: predniSONE 20 MG, predniSONE 10 MG 30 MG PO (09:03)
[2024-12-23] MEDS: PANTOPRAZOLE 40 MG TABLET PO ×2 (09:03→19:55)
[2024-12-23] MEDS: polyethylene glycoL 3350 17 GM POWD.PACK PO (09:04)
[2024-12-23] MEDS: ATORVASTATIN 40 MG TABLET PO (09:04)
[2024-12-23] MEDS: ASPIRIN 81 MG ENTERIC TABLET PO (09:04)
[2024-12-23] MEDS: FAMOTIDINE 20 MG/2 ML VIAL IV PUSH (09:04)
[2024-12-23] MEDS: ENOXAPARIN 40 MG/0.4 ML SYRINGE SUB-Q (09:04)
[2024-12-23] MEDS: ISOSORBIDE MONONITRATE 30 MG TAB.ER.24H PO (09:04)
[2024-12-23] MEDS: CLOPIDOGREL BISULFATE 75 MG TABLET PO (09:04)
[2024-12-23 12:16] LABS: Schistocytes None Seen
--- NOTE | 2024-12-23 18:13 | PM.IMPN ---
Progress Note: A&P Assessment and Plan (1) Influenza A: Code(s): J10.1 - Influenza due to other identified influenza virus with other respiratory manifestations Status: Inactive (2) Cigarette smoker: Code(s): F17.210 - Nicotine dependence, cigarettes, uncomplicated Status: Acute (3) Hypertensive urgency: Code(s): I16.0 - Hypertensive urgency Status: Acute (4) Elevated troponin: Code(s): R79.89 - Other specified abnormal findings of blood chemistry Status: Acute (5) Lactic acidosis: Code(s): E87.20 - Acidosis, unspecified Status: Acute (6) Sepsis: Code(s): A41.9 - Sepsis, unspecified organism Status: Acute (7) Transient alteration of awareness: Code(s): R40.4 - Transient alteration of awareness Status: Acute (8) Respiratory distress: Code(s): R06.03 - Acute respiratory distress Status: Acute Plan Influenza a -Tamiflu 30 mg p.o. b.i.d. has been started. Continue Acute COPD exacerbation was on BiPAP Contineu bronchodilators and Inhaled steroid now on room air Acute hypoxemic respiratory failure Was on bipap resolved titrate Hypertensive urgency -bilateral renal artery stenosis with mild left kidney atrophy identified on CTA abdomen pelvis. Discontinued ARBs due to renal artery stenosis Continue Amlodipine, HCTZ and Isosorbide dinitrate, still poorly controlled awaiting transfer to [place] for vascular intervention awaiting call back from [facility] per family request Bilateral renal artery stenosis with mild left kidney atrophy CTA abdomen pelvis reviewed continue blood pressure control as above awaiting transfer Significant left carotid artery stenosis CTA from 12/07 awaiting transfer Active tobacco abuse -counseling provided. 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 Currently has no symptoms. Continue to monitor. 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 MRI demonstrated right thalamus and internal capsule stroke. 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 DVT prophylaxis on Sq Lovenox Awaiting transfer to [place] for vascular surgery intervention Awaiting call back from [facility] Patient and family refusing labs Subjective Date/time seen: 12/23/24 18:13 Interval history: Called this morning [facility] and updated labs. Discussed with his daughter who agrees to transfer to [facility]. Called again this evening and added the patient on wait list. Review of Systems Review of Systems: All systems reviewed & are unremarkable except as noted in HPI and below (HPI) Exam Const: General: comfortable and no acute distress Eyes: Pupils: Equal, round and reactive pupils present Neck: Neck: supple Resp: Other: Slight expiratory wheeze Cardio: Rate: regular rate Rhythm: regular rhythm Neuro: Cranial nerves: Yes Equal, round and reactive pupils present Other: Gait exam deferred. Moves all 4 extremities spontaneously, 5/5 strength x4 Objective Data Vital Signs Vital Signs: Vital Signs - 24 hr 12/22/24 20:00 12/22/24 20:26 12/22/24 20:26 Temperature Pulse Rate 83 Respiratory Rate 18 Blood Pressure Pulse Oximetry 95 Oxygen Delivery Room Air Room Air Fraction of Inspired Oxygen 21 12/22/24 20:42 12/22/24 22:18 12/23/24 02:37 Temperature 97.2 F L Pulse Rate 84 89 80 Respiratory Rate 18 20 18 Blood Pressure 150/83 H Pulse Oximetry 100 Oxygen Delivery Fraction of Inspired Oxygen 12/23/24 02:47 12/23/24 06:00 12/23/24 07:33 Temperature 98.5 F Pulse Rate 82 77 76 Respiratory Rate 18 20 20 Blood Pressure 165/65 H Pulse Oximetry 98 95 Oxygen Delivery Room Air Fraction of Inspired Oxygen 12/23/24 07:33 12/23/24 07:47 12/23/24 08:00 Temperature Pulse Rate 76 80 Respiratory Rate 20 20 Blood Pressure Pulse Oximetry Oxygen Delivery Room Air Fraction of Inspired Oxygen 12/23/24 08:56 12/23/24 10:44 12/23/24 13:36 Temperature Pulse Rate 84 92 Respiratory Rate 20 Blood Pressure 192/70 H 163/73 H Pulse Oximetry 97 Oxygen Delivery Room Air Fraction of Inspired Oxygen 12/23/24 13:36 12/23/24 13:54 12/23/24 14:00 Temperature 97.3 F L Pulse Rate 92 96 83 Respiratory Rate 20 20 20 Blood Pressure 151/67 H Pulse Oximetry 100 Oxygen Delivery Fraction of Inspired Oxygen Intake/Output Intake/Output: Intake & Output 12/20/24 12/21/24 12/22/24 12/23/24 23:59 23:59 23:59 23:59 Intake Total 1135 1800 1979 1310 Output Total 2125 Balance -990 1800 1979 1310 Meds/Results Medications: Active Medications Generic Name Dose Route Start Last Admin Trade Name Freq PRN Reason Stop Dose Admin Acetaminophen 650 mg 12/18/24 18:45 12/23/24 09:04 Acetaminophen 325 Mg Tablet PO 650 mg Q4H PRN Administration Mild Pain (1-3) or Fever Amlodipine Besylate 10 mg 12/19/24 14:40 12/23/24 09:03 Amlodipine Besylate 10 Mg Tablet PO 10 mg DAILY FADUMO Administration Aspirin 81 mg 12/19/24 09:00 12/23/24 09:04 Aspirin 81 Mg Enteric Tablet PO 81 mg QAM FADUMO Administration Atorvastatin Calcium 40 mg 12/21/24 09:00 12/23/24 09:04 Atorvastatin 40 Mg Tablet PO 40 mg DAILY FADUMO Administration Benzonatate 100 mg 12/19/24 22:43 12/23/24 09:04 Benzonatate 100 Mg Capsule PO 100 mg TID PRN Administration cough Budesonide 0.5 mg 12/19/24 20:00 12/23/24 07:31 Budesonide Respule Neb 0.5 Mg/2 Ml Amp INHALATION 0.5 mg Q12HRT FADUMO Administration Clopidogrel Bisulfate 75 mg 12/21/24 09:00 12/23/24 09:04 Clopidogrel Bisulfate 75 Mg Tablet PO 75 mg DAILY FADUMO Administration Enoxaparin Sodium 40 mg 12/20/24 09:00 12/23/24 09:04 Enoxaparin 40 Mg/0.4 Ml Syringe SUB-Q 40 mg DAILY FADUMO Administration Famotidine 20 mg 12/18/24 21:00 12/23/24 09:04 Famotidine 20 Mg/2 Ml Vial IV PUSH 20 mg Q12HR FADUMO Administration Hydralazine HCl 10 mg 12/18/24 18:42 12/18/24 20:17 Hydralazine Hcl 20 Mg/Ml Vial IV PUSH 10 mg Q6H PRN Administration Blood Pressure - High Hydrochlorothiazide 12.5 mg 12/20/24 10:30 12/23/24 09:03 Hydrochlorothiazide 12.5 Mg Capsule PO 12.5 mg QAM FADUMO Administration Ipratropium [place] 0.5 mg 12/18/24 18:38 12/18/24 21:55 Ipratropium Br 0.02% Inh Soln 0.5 Mg/2.5 Ml Vial INHALATION 0.5 mg Q6HRT PRN Administration Shortness Of Breath Or Wheezing Ipratropium [place] 0.5 mg 12/21/24 14:00 12/23/24 13:36 Ipratropium Br 0.02% Inh Soln 0.5 Mg/2.5 Ml Vial INHALATION 0.5 mg Q6HRT FADUMO Administration Isosorbide Mononitrate 30 mg 12/22/24 14:40 12/23/24 09:04 Isosorbide Mononitrate 30 Mg Tab.Er.24h PO 30 mg QAM FADUMO Administration Levalbuterol HCl 0.63 mg 12/18/24 18:38 12/18/24 21:55 Levalbuterol Neb 1.25 Mg/3 Ml INHALATION 0.63 mg Q6HRT PRN Administration Shortness Of Breath Or Wheezing Levalbuterol HCl 0.63 mg 12/21/24 14:00 12/23/24 13:36 Levalbuterol Neb 1.25 Mg/3 Ml INHALATION 0.63 mg Q6HRT FADUMO Administration Levofloxacin 750 mg 12/22/24 16:00 12/22/24 15:11 Levofloxacin 750 Mg Tablet PO 12/24/24 16:01 750 mg Q48H FADUMO Administration Ondansetron HCl 4 mg 12/18/24 18:45 Ondansetron Inj 4 Mg/2 Ml Vial IV PUSH Q4H PRN Nausea Oseltamivir Phosphate 30 mg 12/18/24 21:00 12/23/24 09:03 Oseltamivir Phosphate 30 Mg Capsule PO 12/23/24 20:59 30 mg Q12HR FADUMO Administration Pantoprazole Sodium 40 mg 12/19/24 21:00 12/23/24 09:03 Pantoprazole 40 Mg Tablet PO 40 mg Q12HR FADUMO Administration Polyethylene Glycol 17 gm 12/23/24 09:00 12/23/24 09:04 Polyethylene Glycol 3350 17 Gm Powd.Pack PO 17 gm QAM FADUMO Administration Prednisone 20 mg/ Prednisone 30 mg 12/20/24 08:00 12/23/24 09:03 10 mg PO 30 mg DAILY@0800 FADUMO Administration Fluticasone/Salmeterol 2 puff 12/20/24 20:00 12/23/24 07:47 Fluticasone/Salmeterol 115-21 Mcg Inhaler 1 Puff INHALATION Not Given Q12HRT [facility] Radiology Results: ITS Impressions Chest X-Ray 12/18/24 15:26 IMPRESSION: Chronic interstitial change without focal infiltrate or effusion. Head CT 12/18/24 16:44 IMPRESSION: 1. Old infarcts in the left thalamus and right basal ganglia. 2. Stable moderate nonspecific cerebral white matter disease, which likely represents chronic small vessel ischemic disease. Chest/Abdomen/Pelvis CTA 12/18/24 16:46 IMPRESSION: 1. Bilateral renal artery stenosis. Mild left kidney atrophy. 2. Moderate emphysema. 3. Wall thickening of the distal esophagus, likely esophagitis. 4. Mild mediastinal and bilateral hilar lymphadenopathy, likely reactive. Modified Barium Swallow 12/19/24 14:36 IMPRESSION: 1. No laryngeal penetration or aspiration. 2. Please refer to the speech therapy report for recommendations. Labs Labs: Laboratory Results - last 24 hr 12/23/24 07:16 WBC 4.5 RBC 5.92 Hgb 9.8 L Hct 33.1 L MCV 55.9 L MCH 16.6 L MCHC 29.6 L RDW 18.0 H Plt Count 273 MPV 8.6 Immature Gran % (Auto) 5.6 H Neut % (Auto) 63.9 Lymph % (Auto) 17.4 L [place] % (Auto) 12.7 H Eos % (Auto) 0.0 Baso % (Auto) 0.4 Lymph # (Auto) 0.78 L [place] # (Auto) 0.6 Eos # (Auto) 0.0 Baso # (Auto) 0.0 Abs Immat Gran (auto) 0.25 H Absolute Neuts (auto) 2.9 Absolute Nucleated RBC 0.000 Nucleated RBC % 0.0 Platelet Estimate Adequate Hypochromasia 1+ Anisocytosis 1+ Target Cells 1+ Ovalocytes 1+ [place] Cells 1+ Schistocytes None seen PT 12.9 INR 0.9 Sodium 132 L Potassium 3.7 Chloride 93 L Carbon Dioxide 32 H Anion Gap 7 BUN 19 Creatinine 1.12 Estim Creat Clear Calc 40 Estimated GFR > 60 Glucose 89 Calcium 10.2 Phosphorus 2.4 L Magnesium 2.0 Total Bilirubin 0.5 AST 63 H ALT 33 Alkaline Phosphatase 80 Total Protein 7.0 Albumin 3.8 Hospitalist MIPS Advance Care Plan I have confirmed that the patient's Advanced Care Plan is present, code status is documented, or surrogate decision maker is listed in patient medical record.: Yes Medication Reconciliation I have utilized all available resources to obtain, update and review the patients current medications (includes all prescriptions, OTC, herbals, cannabis, and nutritional supplements).: Yes
[2024-12-23] MEDS: FLUTICASONE/SALMETEROL 115-21 MCG INHALER 1 PUFF 2 PUFF INHALATION (21:21)
[2024-12-24] VITALS (10 sets, daily range): BP systolic 140–181; BP diastolic 76–84; PULSE 75–88; RESP 16–18; TEMP 36.4–36.8; O2SAT 95–100
[2024-12-24] MEDS: IPRATROPIUM BR 0.02% INH SOLN 0.5 MG/2.5 ML VIAL INHALATION ×3 (02:49→20:33)
[2024-12-24] MEDS: LEVALBUTEROL NEB 1.25 MG/3 ML 0.63 MG INHALATION ×3 (02:49→20:33)
[2024-12-24] MEDS: BUDESONIDE RESPULE NEB 0.5 MG/2 ML AMP INHALATION ×2 (08:03→20:32)
[2024-12-24] MEDS: FLUTICASONE/SALMETEROL 115-21 MCG INHALER 1 PUFF 2 PUFF INHALATION ×2 (08:03→20:32)
[2024-12-24] MEDS: ISOSORBIDE MONONITRATE 30 MG TAB.ER.24H PO (08:34)
[2024-12-24] MEDS: amLODIPine BESYLATE 10 MG TABLET PO (08:34)
[2024-12-24] MEDS: PANTOPRAZOLE 40 MG TABLET PO ×2 (08:34→21:21)
[2024-12-24] MEDS: ASPIRIN 81 MG ENTERIC TABLET PO (08:34)
[2024-12-24] MEDS: ATORVASTATIN 40 MG TABLET PO (08:34)
[2024-12-24] MEDS: CLOPIDOGREL BISULFATE 75 MG TABLET PO (08:35)
[2024-12-24] MEDS: BENZONATATE 100 MG CAPSULE PO ×3 (08:35→23:00)
[2024-12-24] MEDS: ENOXAPARIN 40 MG/0.4 ML SYRINGE SUB-Q (08:35)
[2024-12-24] MEDS: hydroCHLOROthiazide 12.5 MG CAPSULE PO (08:35)
[2024-12-24] MEDS: predniSONE 20 MG, predniSONE 10 MG 30 MG PO (08:35)
[2024-12-24] MEDS: FAMOTIDINE 20 MG/2 ML VIAL IV PUSH (08:36)
[2024-12-24] MEDS: polyethylene glycoL 3350 17 GM POWD.PACK PO (08:36)
[2024-12-24] MEDS: ACETAMINOPHEN 325 MG TABLET 650 MG PO ×2 (13:23→23:00)
--- NOTE | 2024-12-24 15:57 | P.PNIM_ITS ---
Progress Note: A&P Assessment and Plan (1) Influenza A: Code(s): J10.1 - Influenza due to other identified influenza virus with other respiratory manifestations Status: Inactive (2) Cigarette smoker: Code(s): F17.210 - Nicotine dependence, cigarettes, uncomplicated Status: Acute (3) Hypertensive urgency: Code(s): I16.0 - Hypertensive urgency Status: Acute (4) Elevated troponin: Code(s): R79.89 - Other specified abnormal findings of blood chemistry Status: Acute (5) Lactic acidosis: Code(s): E87.20 - Acidosis, unspecified Status: Acute (6) Sepsis: Code(s): A41.9 - Sepsis, unspecified organism Status: Acute (7) Transient alteration of awareness: Code(s): R40.4 - Transient alteration of awareness Status: Acute (8) Respiratory distress: Code(s): R06.03 - Acute respiratory distress Status: Acute Plan Influenza a -Tamiflu 30 mg p.o. b.i.d. has been started. Continue Acute COPD exacerbation was on BiPAP Contineu bronchodilators and Inhaled steroid now on room air Acute hypoxemic respiratory failure Was on bipap resolved titrate Hypertensive urgency -bilateral renal artery stenosis with mild left kidney atrophy identified on CTA abdomen pelvis. Discontinued ARBs due to renal artery stenosis Continue Amlodipine, HCTZ and Isosorbide dinitrate, still poorly controlled awaiting transfer to [place] for vascular intervention awaiting call back from [facility] per family request Bilateral renal artery stenosis with mild left kidney atrophy CTA abdomen pelvis reviewed continue blood pressure control as above awaiting transfer Significant left carotid artery stenosis CTA from 12/07 awaiting transfer Active tobacco abuse -counseling provided. 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 Currently has no symptoms. Continue to monitor. 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 MRI demonstrated right thalamus and internal capsule stroke. Restart [employer] aspirin clopidogrel and statin. DVT prophylaxis on Sq Lovenox Awaiting transfer to [place] for vascular surgery intervention Awaiting call back from [facility] Patient and family refusing labs Subjective Date/time seen: 12/24/24 15:57 Interval history: As per daughter patient wants to be transferred to any of the hospital for vascular surgeon. Abdominal KUB shows no obstruction. Patient is already on MiraLax and add given 1 dose of lactulose. Brief history: 12/06 patient was admitted due to left-sided weakness. Patient had a 1 cm ovoid acute infarct at the posterior aspect of the right internal capsule/right thalamus. At the time neurosurgery at [facility] was contacted and denied any acute intervention due to outside the window. Patient also had left sided internal carotid stenosis and left-sided vertebral artery occlusion and was contacted Dr. Rebolledo who reported it is an incidental finding and does not need acute intervention. So the patient was discharged from [place]. 12/18: Patient at home was again came to ED due to weakness. His troponin was increased and cardiology was consulted who reported no acute intervention at this time. Due to persistent hypertension CTA abdomen shows of the bilateral renal artery stenosis. Previously family wants to transfer the patient to [place]. Now patient agrees to transfer the patient to any facility.I called [facility] and spoke with Dr.Michael Hartmann-vascular surgeon. He reported ,no need to transfer the patient and he is happy to see the patient at his office Review of Systems Review of Systems: All systems reviewed & are unremarkable except as noted in HPI and below (HPI) Exam Const: General: comfortable and no acute distress Eyes: Pupils: Equal, round and reactive pupils present Neck: Neck: supple Resp: Other: Slight expiratory wheeze Cardio: Rate: regular rate Rhythm: regular rhythm Neuro: Cranial nerves: Yes Equal, round and reactive pupils present Other: Gait exam deferred. Moves all 4 extremities spontaneously, 5/5 strength x4 Objective Data Vital Signs Vital Signs: Vital Signs - 24 hr 12/23/24 20:00 12/23/24 20:35 12/23/24 21:24 Temperature 97.9 F Pulse Rate 79 80 Respiratory Rate 18 18 Blood Pressure 182/72 H Pulse Oximetry 100 Oxygen Delivery Room Air 12/23/24 21:32 12/24/24 02:49 12/24/24 03:15 Temperature Pulse Rate 88 77 78 Respiratory Rate 18 18 18 Blood Pressure Pulse Oximetry Oxygen Delivery 12/24/24 08:00 12/24/24 08:03 12/24/24 08:18 Temperature Pulse Rate 87 82 Respiratory Rate 18 18 Blood Pressure Pulse Oximetry Oxygen Delivery Room Air 12/24/24 08:33 12/24/24 10:40 12/24/24 14:00 Temperature 97.6 F Pulse Rate 75 78 Respiratory Rate 18 Blood Pressure 168/76 H 140/82 Pulse Oximetry 100 95 96 Oxygen Delivery Room Air Intake/Output Intake/Output: Intake & Output 12/21/24 12/22/24 12/23/24 12/24/24 23:59 23:59 23:59 23:59 Intake Total 1800 1979 1550 480 Balance 1800 1979 1550 480 Meds/Results Medications: Active Medications Generic Name Dose Route Start Last Admin Trade Name Freq PRN Reason Stop Dose Admin Acetaminophen 650 mg 12/18/24 18:45 12/24/24 13:23 Acetaminophen 325 Mg Tablet PO 650 mg Q4H PRN Administration Mild Pain (1-3) or Fever Amlodipine Besylate 10 mg 12/19/24 14:40 12/24/24 08:34 Amlodipine Besylate 10 Mg Tablet PO 10 mg DAILY FADUMO Administration Aspirin 81 mg 12/19/24 09:00 12/24/24 08:34 Aspirin 81 Mg Enteric Tablet PO 81 mg QAM FADUMO Administration Atorvastatin Calcium 40 mg 12/21/24 09:00 12/24/24 08:34 Atorvastatin 40 Mg Tablet PO 40 mg DAILY FADUMO Administration Benzonatate 100 mg 12/19/24 22:43 12/24/24 13:47 Benzonatate 100 Mg Capsule PO 100 mg TID PRN Administration cough Budesonide 0.5 mg 12/19/24 20:00 12/24/24 08:03 Budesonide Respule Neb 0.5 Mg/2 Ml Amp INHALATION 0.5 mg Q12HRT FADUMO Administration Clopidogrel Bisulfate 75 mg 12/21/24 09:00 12/24/24 08:35 Clopidogrel Bisulfate 75 Mg Tablet PO 75 mg DAILY FADUMO Administration Enoxaparin Sodium 40 mg 12/20/24 09:00 12/24/24 08:35 Enoxaparin 40 Mg/0.4 Ml Syringe SUB-Q 40 mg DAILY FADUMO Administration Famotidine 20 mg 12/18/24 21:00 12/24/24 08:36 Famotidine 20 Mg/2 Ml Vial IV PUSH 20 mg Q12HR FADUMO Administration Hydralazine HCl 10 mg 12/18/24 18:42 12/18/24 20:17 Hydralazine Hcl 20 Mg/Ml Vial IV PUSH 10 mg Q6H PRN Administration Blood Pressure - High Hydrochlorothiazide 12.5 mg 12/20/24 10:30 12/24/24 08:35 Hydrochlorothiazide 12.5 Mg Capsule PO 12.5 mg QAM [facility] Administration Ipratropium [place] 0.5 mg 12/18/24 18:38 12/18/24 21:55 Ipratropium Br 0.02% Inh Soln 0.5 Mg/2.5 Ml Vial INHALATION 0.5 mg Q6HRT PRN Administration Shortness Of Breath Or Wheezing Ipratropium [place] 0.5 mg 12/21/24 14:00 12/24/24 13:36 Ipratropium Br 0.02% Inh Soln 0.5 Mg/2.5 Ml Vial INHALATION Not Given Q6HRT [facility] Isosorbide Mononitrate 30 mg 12/22/24 14:40 12/24/24 08:34 Isosorbide Mononitrate 30 Mg Tab.Er.24h PO 30 mg QAM [facility] Administration Levalbuterol HCl 0.63 mg 12/18/24 18:38 12/18/24 21:55 Levalbuterol Neb 1.25 Mg/3 Ml INHALATION 0.63 mg Q6HRT PRN Administration Shortness Of Breath Or Wheezing Levalbuterol HCl 0.63 mg 12/21/24 14:00 12/24/24 13:36 Levalbuterol Neb 1.25 Mg/3 Ml INHALATION Not Given Q6HRT [facility] Levofloxacin 750 mg 12/22/24 16:00 12/22/24 15:11 Levofloxacin 750 Mg Tablet PO 12/24/24 16:01 750 mg Q48H [facility] Administration Ondansetron HCl 4 mg 12/18/24 18:45 Ondansetron Inj 4 Mg/2 Ml Vial IV PUSH Q4H PRN Nausea Pantoprazole Sodium 40 mg 12/19/24 21:00 12/24/24 08:34 Pantoprazole 40 Mg Tablet PO 40 mg Q12HR FADUMO Administration Polyethylene Glycol 17 gm 12/23/24 09:00 12/24/24 08:36 Polyethylene Glycol 3350 17 Gm Powd.Pack PO 17 gm QAM FADUMO Administration Prednisone 20 mg/ Prednisone 30 mg 12/20/24 08:00 12/24/24 08:35 10 mg PO 30 mg DAILY@0800 FADUMO Administration Fluticasone/Salmeterol 2 puff 12/20/24 20:00 12/24/24 08:03 Fluticasone/Salmeterol 115-21 Mcg Inhaler 1 Puff INHALATION 2 puff Q12HRT FADUMO Administration Radiology Results: ITS Impressions Chest X-Ray 12/18/24 15:26 IMPRESSION: Chronic interstitial change without focal infiltrate or effusion. Head CT 12/18/24 16:44 IMPRESSION: 1. Old infarcts in the left thalamus and right basal ganglia. 2. Stable moderate nonspecific cerebral white matter disease, which likely represents chronic small vessel ischemic disease. Chest/Abdomen/Pelvis CTA 12/18/24 16:46 IMPRESSION: 1. Bilateral renal artery stenosis. Mild left kidney atrophy. 2. Moderate emphysema. 3. Wall thickening of the distal esophagus, likely esophagitis. 4. Mild mediastinal and bilateral hilar lymphadenopathy, likely reactive. Modified Barium Swallow 12/19/24 14:36 IMPRESSION: 1. No laryngeal penetration or aspiration. 2. Please refer to the speech therapy report for recommendations. Abdomen X-Ray 12/24/24 14:00 IMPRESSION: 1. Nonobstructive bowel gas pattern.
[2024-12-24] MEDS: LACTULOSE 20 GM/30 ML UDC PO (16:30)
[2024-12-24] MEDS: levoFLOXacin 750 MG TABLET PO (16:30)
[2024-12-24 21:23] LABS: IFOB Positive Control Positive; Immunochemical Fecal Occult Bl Negative (N)
[2024-12-24] MEDS: FAMOTIDINE 20 MG TABLET PO (22:02)
[2024-12-25] MEDS: IPRATROPIUM BR 0.02% INH SOLN 0.5 MG/2.5 ML VIAL INHALATION ×3 (02:06→13:38)
[2024-12-25] MEDS: LEVALBUTEROL NEB 1.25 MG/3 ML 0.63 MG INHALATION ×2 (02:06→13:24)
[2024-12-25 02:08] VITALS: PULSE 88; RESP 16
[2024-12-25 02:20] VITALS: PULSE 88; RESP 16
[2024-12-25 05:29] VITALS: BP 174/74; PULSE 85; RESP 16; TEMP 36.5; O2SAT 98
[2024-12-25] MEDS: BENZONATATE 100 MG CAPSULE PO (09:04)
[2024-12-25] MEDS: polyethylene glycoL 3350 17 GM POWD.PACK PO (09:04)
[2024-12-25] MEDS: amLODIPine BESYLATE 10 MG TABLET PO (09:04)
[2024-12-25] MEDS: ASPIRIN 81 MG ENTERIC TABLET PO (09:04)
[2024-12-25] MEDS: predniSONE 20 MG, predniSONE 10 MG 30 MG PO (09:04)
[2024-12-25] MEDS: CLOPIDOGREL BISULFATE 75 MG TABLET PO (09:04)
[2024-12-25] MEDS: ATORVASTATIN 40 MG TABLET PO (09:04)
[2024-12-25] MEDS: ISOSORBIDE MONONITRATE 30 MG TAB.ER.24H PO (09:04)
[2024-12-25] MEDS: hydroCHLOROthiazide 12.5 MG CAPSULE PO (09:05)
[2024-12-25] MEDS: PANTOPRAZOLE 40 MG TABLET PO (09:05)
[2024-12-25] MEDS: ENOXAPARIN 40 MG/0.4 ML SYRINGE SUB-Q (09:05)
[2024-12-25] MEDS: FAMOTIDINE 20 MG TABLET PO (09:05)
--- NOTE | 2024-12-25 13:04 | PCNFU ---
Nutrition Follow-Up Complete: Potential for inadequate oral intake related to swallowing ability as evidenced by MBSS ordered Goal: Adequate PO intake at least 75% meals Textures appropriate for patient needs We will continue current goal. Pt current nutrition is Minced and Moist, Level 5/Heart Healthy diet. Last recorded weight is 53.8 kg, up from 51.8 kg on admit. Bowel Motility: +BM reported / Labs Reviewed:No new labs to report. Meds Noted: Prednisone, Miralax, Plavix, Protonix. Skin: WNL Additional Notes: Patient remains on Minced and Moist, Level 5 diet. Family has been bringing foods in. Oral Intake improving to > 75% of meals. Awaiting transfer for [facility]. Monitoring swallowing ability, intakes, weights, labs, out put, meds, plan of care Follow up in 5 days
[2024-12-25 13:25] VITALS: PULSE 90; RESP 16
[2024-12-25 13:42] VITALS: PULSE 88; RESP 16; O2SAT 94
[2024-12-25] MEDS: ACETAMINOPHEN 325 MG TABLET 650 MG PO (13:45)
--- NOTE | 2024-12-25 14:14 | PM.DS ---
DS: Admitting Diagnosis Discharge Date 12/25/2024 Admitting Diagnosis Influenza DS: Discharge Diagnosis Discharge Diagnosis (1) Influenza A: Code(s): J10.1 - Influenza due to other identified influenza virus with other respiratory manifestations Status: Inactive (2) Cigarette smoker: Code(s): F17.210 - Nicotine dependence, cigarettes, uncomplicated Status: Acute (3) Hypertensive urgency: Code(s): I16.0 - Hypertensive urgency Status: Acute (4) Elevated troponin: Code(s): R79.89 - Other specified abnormal findings of blood chemistry Status: Acute (5) Lactic acidosis: Code(s): E87.20 - Acidosis, unspecified Status: Acute (6) Sepsis: Code(s): A41.9 - Sepsis, unspecified organism Status: Acute (7) Transient alteration of awareness: Code(s): R40.4 - Transient alteration of awareness Status: Acute (8) Respiratory distress: Code(s): R06.03 - Acute respiratory distress Status: Acute Plan Influenza a Completed Tamiflu Acute COPD exacerbation Status post BiPAP Contineu bronchodilators and Inhaled steroid now on room air Acute hypoxemic respiratory failure Was on bipap resolved titrate Hypertensive urgency -bilateral renal artery stenosis with mild left kidney atrophy identified on CTA abdomen pelvis. -Discontinued ARBs due to renal artery stenosis -Continue Amlodipine, HCTZ and Isosorbide dinitrate, still poorly controlled -F/U vascular surgeon in [facility] Bilateral renal artery stenosis with mild left kidney atrophy CTA abdomen pelvis reviewed continue blood pressure control as above Significant left carotid artery stenosis CTA from 12/07 Active tobacco abuse -counseling provided. 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 Currently has no symptoms. Continue to monitor. 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 MRI demonstrated right thalamus and internal capsule stroke. Restart [employer] aspirin clopidogrel and statin. Patient and family refusing labs DS: Summary Hospital Course Hospital Course: Patient has extensive medical history. Below is the brief summary: 12/06-12/08 :Patient was admitted due to left-sided weakness at [place]. Patient had a 1 cm ovoid acute infarct at the posterior aspect of the right internal capsule/right thalamus. At the time in the ED contacted neurosurgery at [facility] and denied any acute intervention due to outside the window. Patient also had left sided internal carotid stenosis and left-sided vertebral artery occlusion and was contacted Dr. Rebolledo at [facility] who reported it is an incidental finding and does not need acute intervention. So the patient was discharged from [place]. 12/18-12/24: Patient again came to [facility] ED due to weakness. His troponin was increased and cardiology was consulted who reported no acute intervention at this time. Due to persistent hypertension, CTA abdomen was performed and showed bilateral renal artery stenosis. Previously family wants to transfer the patient to [facility] but later patient daughter agrees to transfer the patient to any facility.I called [facility] and spoke with Dr.Michael Hartmann-vascular surgeon. He reported ,no need to transfer the patient and doesn't require inpatient work up but he is happy to see the patient at his office. Patient is non compliant with his medications.Patient family also refuses labs.Advised his daughter to discuss the goal of care with the patient since he doesn't want any medical interventions to be taken and wants to smoke again.Patient is high risk for readmission. Discharged with following instructions: Patient needs to see Vascular surgeon, Cardiology,Neurology, and PCP within a week or 2 upon discharge. Medications needs to be taken regularly. Check blood pressure 1 to 2 times a day. Record and bring into your doctor for review. Call your doctor if your blood pressure is greater than 180/110 or less than 90/45. Walk with cane or other assist device. Take precautions to avoid falls. Rise slowly from a lying or sitting position. Pause before standing or walking. Contact your doctor or call 911 and come to the Emergency Room if you have any type of trauma, lightheadedness with standing or other worrisome symptoms. Avoid NSAIDs (ibuprofen, naproxen, Aleve). Tylenol is safe to take. Status at Discharge Cognitive/behavioral status at discharge: Stable Time Spent with Patient Time attestation: Total time spent providing and/or coordinating discharge services:45 minutes Exam Const: General: comfortable and no acute distress Eyes: Pupils: Equal, round and reactive pupils present Neck: Neck: supple Resp: Other: Slight expiratory wheeze Cardio: Rate: regular rate Rhythm: regular rhythm Neuro: Cranial nerves: Yes Equal, round and reactive pupils present Other: Gait exam deferred. Moves all 4 extremities spontaneously, 5/5 strength x4 DS: Data Data Completed and Pending Labs on day of discharge: Labs from last 24 hours 12/24/24 20:51 Stl Occult Blood (IFOB) Negative Discharge Plan Discharge Attending physician on discharge: Butch Alarcon Consulting providers: Alexsander Webb Discharging Clinician: Butch Alarcon Anticipated Discharge Date/Time: 12/25/24 13:50 Patient Disposition: Home, Self-Care Activity: as tolerated Diet: heart healthy Discharge Instructions: Patient has extensive medical history. Below are the details(brief summary) as per daughter request: 12/06-12/08 :Patient was admitted due to left-sided weakness at [facility]. Patient had a 1 cm ovoid acute infarct at the posterior aspect of the right internal capsule/right thalamus. At the time in the ED contacted neurosurgery at [facility] and denied any acute intervention due to outside the window. Patient also had left sided internal carotid stenosis and left-sided vertebral artery occlusion and was contacted Dr. Rebolledo at [facility] who reported it is an incidental finding and does not need acute intervention. So the patient was discharged from [place]. 12/18-12/24: Patient again came to [facility] ED due to weakness. His troponin was increased and cardiology was consulted who reported no acute intervention at this time. Due to persistent hypertension, CTA abdomen was performed and showed bilateral renal artery stenosis. Previously family wants to transfer the patient to [facility] but later patient daughter agrees to transfer the patient to any facility.I called [facility] and spoke with Dr.Michael Hartmann-vascular surgeon. He reported ,no need to transfer the patient and doesn't require inpatient work up but he is happy to see the patient at his office. Patient needs to see Vascular surgeon, Cardiology,Neurology,Pulmonology, and PCP within a week or 2 upon discharge. Medications needs to be taken regularly. Check blood pressure 1 to 2 times a day. Record and bring into your doctor for review. Call your doctor if your blood pressure is greater than 180/110 or less than 90/45. Walk with cane or other assist device. Take precautions to avoid falls. Rise slowly from a lying or sitting position. Pause before standing or walking. Contact your doctor or call 911 and come to the Emergency Room if you have any type of trauma, lightheadedness with standing or other worrisome symptoms. Avoid NSAIDs (ibuprofen, naproxen, Aleve). Tylenol is safe to take. Advised his daughter to discuss the goal of care with the patient since he doesn't want any medical interventions to be taken and wants to smoke again. Thank you for using [facility] for your health care needs. Patient Instructions: Antibiotic Form, Influenza (GEN) Patient Language: Congolese Stand Alone Forms: General Discharge Information Follow-up/Referrals: Ángel Hartmann [Other] (Vascular Surgeon at [facility]) Alexsander Webb MD [Physician] - Randall,MD Ted [Primary Care Provider] - Discharge Medications: New isosorbide mononitrate 30 mg Tablet Extended Release 24 Hr 30 mg PO QAM Qty: 30 0RF amlodipine 10 mg Tablet 10 mg PO DAILY Qty: 30 0RF hydrochlorothiazide 12.5 mg Capsule 12.5 mg PO QAM Qty: 30 0RF Continued polyethylene glycol 3350 17 gram/dose powder 17 g PO DAILY PRN (Reason: constipation) theophylline 300 mg capsule,extended release 24hr 300 mg PO DAILY docusate sodium [Stool Softener] 100 mg capsule 100 mg PO DAILY PRN (Reason: constipation) clopidogrel 75 mg Tablet 75 mg PO DAILY aspirin 81 mg Tablet,Delayed Release (Dr/Ec) 81 mg PO DAILY atorvastatin 40 mg Tablet 40 mg PO DAILY Qty: 30 0RF albuterol sulfate 90 mcg/actuation HFA aerosol inhaler 2 puff INHALATION Q6H PRN (Reason: shortness of breath or wheezing) Qty: 1 0RF budesonide-formoterol [Symbicort] 160-4.5 mcg/actuation HFA aerosol inhaler 2 puff INHALATION BID Qty: 1 0RF acetaminophen 500 mg capsule 1,000 mg PO Q6H PRN (Reason: pain) Qty: 30 0RF Discontinued budesonide-formoterol [Breyna] 160-4.5 mcg/actuation HFA aerosol inhaler 2 inh inhalation Q12H losartan-hydrochlorothiazide 100-12.5 mg tablet 1 tablet PO DAILY amlodipine 5 mg tablet 5 mg PO DAILY telmisartan-hydrochlorothiazid 40-12.5 mg tablet 1 tablet PO DAILY Qty: 30 0RF ibuprofen 600 mg tablet 600 mg PO TID PRN (Reason: pain) Qty: 30 0RF albuterol sulfate 90 mcg/actuation HFA aerosol inhaler 1 inh inhalation QID PRN (Reason: shortness of breath or wheezing) Qty: 6.7 0RF Date of admission: 12/18/24 18:45 Primary Care Provider: Prakash,[facility] Admitting Provider: Shanell Hunter Attending physician on admission: Shanell Hunter Condition: Guarded Prognosis
== END 2024-12-25 15:50 | disposition home or self-care (01) | DRG 720 ==
LOC: ANHED 15:22 → ANHIMU 19:43 → ANH3MED 12-20 16:23
PROVIDERS: General Practice; Physician Assistant; Student in an Organized Health Care Education/Training Program; Admitting Provider Internal Medicine; Emergency Provider Student in an Organized Health Care Education/Training Program; PCP Family Medicine; Visit Provider General Practice
DX: A41.9 Sepsis, unspecified organism (principal); J11.1 Influenza due to unidentified influenza virus with other respiratory manifestations; R65.20 Severe sepsis without septic shock; J96.01 Acute respiratory failure with hypoxia; D50.9 Iron deficiency anemia, unspecified; F17.210 Nicotine dependence, cigarettes, uncomplicated; G93.41 Metabolic encephalopathy; I16.0 Hypertensive urgency; I10 Essential (primary) hypertension; I70.1 Atherosclerosis of renal artery; I65.22 Occlusion and stenosis of left carotid artery; J43.9 Emphysema, unspecified; K20.90 Esophagitis, unspecified without bleeding; I69.354 Hemiplegia and hemiparesis following cerebral infarction affecting left non-dominant side; I69.328 Other speech and language deficits following cerebral infarction; R79.89 Other specified abnormal findings of blood chemistry; Z91.148 Patient's other noncompliance with medication regimen for other reason
CPT/HCPCS: 36415; 70450; 71045; 71275; 74018; 74174; 80053; 82274; 82728; 82803; 83540; 83550; 83605; 83735; 84100; 84443; 84484; 85025; 85055; 85610; 86140; 87040; 87641; 92611; 93005; 93306; 94002; 94003; 94640; 96365; 96366; 96367; 96375; 99285; A9270; J0360; J0456; J0692; J1650; J1756; J2919; J3370; J3480; J7040; J7050; J7120; J7512; Q9967